=== PATIENT | female | born 1975 | race African-American/Black ===

== ENCOUNTER 2022-02-07 10:27 | Emergency (ER) | payer OTHER, SELFPAY ==
[2022-02-07 10:28] VITALS: BP 171/59; PULSE 80; RESP 16; TEMP 36.8; O2SAT 98; BMI 48.2
--- NOTE | 2022-02-07 11:07 | ED_ITS ---
HPI - Female Genitourinary General Chief complaint: Urogenital-Female Stated complaint: Vaginal pain Time Seen by Provider: 02/07/22 11:01 Source: patient Mode of arrival: ambulatory Limitations: no limitations History of Present Illness HPI Narrative: Patient comes to the emergency room complaining of vaginal pain. Patient states that approximately 3 days ago, she noticed that there is a small lump that is gradually becoming more irritated. Patient denies any vaginal bleeding, no vaginal discharge. Patient states that she has not had her menstrual period in over 2 months. Patient denies fever chills, no UTI symptoms Related Data Previous Rx's Medication Instructions Recorded miconazole nitrate 2 % vaginal 1 appful vaginal BEDTIME 7 days 02/07/22 cream #45 grams nitrofurantoin 100 mg PO Q12H 5 days #10 caps 02/07/22 monohydrate/macrocrystals 100 mg capsule (Macrobid) Allergies Allergy/AdvReac Type Severity Reaction Status Date / Time No Known Allergies Allergy Verified 02/07/22 11:23 Review of Systems Review of Systems: Constitutional : No Weight loss, No Fever, No Chills, No Night Sweats, No Fatigue, No Malaise ENT/Mouth : No Hearing loss, No Ear Pain, No Nasal Congestion, No Sinus Pain, No Hoarseness, No sore throat, No Rhinorrhea, No Swallowing Difficulty Eyes: No Eye Pain, No Swelling, No Redness, No Foreign Body, No Discharge, No Vision Changes Cardiovascular : No Chest Pain, No SOB, No Dyspnea on Exertion, No Orthopnea, No Edema, No Palpitations Respiratory : No Cough, No Sputum, No Wheezing, No Smoke Exposure, No Dyspnea Gastrointestinal : No Nausea, No Vomiting, No Diarrhea, No Constipation, No abdominal Pain, No Hematochezia, No Melena Genitourinary : Complaining of vaginal pain for 3 days, No Dysuria, No Urinary Frequency, No Hematuria, No Urinary Incontinence, No Urgency, No Flank Pain, No Urinary Flow Changes, No Hesitancy Musculoskeletal : No joint pain, No Myalgias, No Joint Swelling Skin : No Skin Lesions, No rash Neuro : No Weakness, No Numbness, No Paresthesias, No Loss of Consciousness, No Dizziness, No Headache Psych : No Anxiety/Panic, No Depression, No SI/HI/AH/VH, No Social Issues, Heme/Lymph: No Bruising, No Bleeding,No Lymphadenopathy Endocrine : No Polyuria, No Polydipsia, No Temperature Intolerance [facility] Past Medical History Medical History (Updated 02/07/22 @ 12:40 by Sunitha Larkin MD) Hypertension Social History Social History Advance Directives: No Advance Directives Information Provided: No Physical Exam Vital Signs: Vital Signs: Last Vital Signs Temp 98.2 F 02/07/22 10:28 Pulse 80 02/07/22 10:28 Resp 16 02/07/22 10:28 BP 171/59 H 02/07/22 10:28 Pulse Ox 98 02/07/22 10:28 O2 Del Method 02/07/22 10:28 BMI result Body Mass Index 48.2 Const: Other: Appearance: Alert. Oriented X3. No acute distress. Eyes: Pupils equal, round and reactive to light. ENT: Pharynx normal. Neck: Normal inspection. Neck supple. No lymph nodes noted. No crepitus CVS: Normal heart rate and rhythm. Pulses normal. Normal S1 and S2 Respiratory: No respiratory distress. Breath sounds normal. No Wheezing. No rales Abdomen: Soft and nontender. No rigidity. No distention. : Vulvar erythema, physiological discharge, no abscesses, no Bartholin's cyst Skin: Skin warm and dry. Normal skin color. Normal skin turgor. Extremities: No lower extremity edema. No Lacerations. No Rash Neuro: Oriented X 3. No motor deficit. No sensory deficit. Moving all e xtremities. No slurred speech. CN 2 through 12 grossly intact Psych: calm, cooperative, normal affect Course Course Course Narrative: I discussed the physical exam with the patient, no abnormal findings other than the vulvar erythema. Likely candidiasis. Patient states that this morning she also noticed that she had dysuria Patient's urinalysis has trace leukocyte esterase. Patient reports intermittent dysuria. Therefore, we will go ahead and treat. Patient's serology(chlamydia, gonorrhea, Trichomonas BV pending) MDM - Female Genitourinary Lab Data Labs: Lab Results 02/07/22 02/07/22 Range/Units 11:33 11:33 Urine Color Dark Yellow Urine Appearance Clear Urine pH 5.5 (5.0-9.0) Ur Specific [place] >= 1.030 H (1.005-1.025) Urine Protein 30 (1+) H (Neg-Trace) mg/dL Urine Glucose (UA) Negative (Negative) mg/dL Urine Ketones Trace (Negative) mg/dL Urine Blood Negative (Negative) Urine Nitrite Negative (Negative) Ur Leukocyte Esterase Trace H (Negative) Urine RBC 0-2 (0-2) /HPF Urine WBC 0-5 (0-5) /HPF Ur Squamous Epith Cells 3-5 (0-2) /HPF Urine Bacteria None Seen (None Seen) Hyaline Casts 0-2 (0-2) /LPF Urine Test NEGATIVE (NEGATIVE) Discharge Plan Discharge Clinical Impression: Urinary tract infection, Candidiasis, vulva Patient Disposition: Home, Self-Care Instructions: Urinary Tract Infection in Women (ED), Yeast Infection (ED) Additional Instructions: Please follow-up with your primary care physician tomorrow. If you have any worsening or new symptoms, please return to the emergency room or call 911 Prescriptions: New miconazole nitrate 2 % cream 1 appful vaginal BEDTIME 7 Days Qty: 45 0RF nitrofurantoin monohyd/m-cryst [Macrobid] 100 mg capsule 100 mg PO Q12H 5 Days Qty: 10 0RF Rx Instructions: must administer with a meal/food
[2022-02-07 11:39] LABS: Appearance Urine Clear; Color Urine Dark Yellow; Glucose Urine UA Negative (Negative); Leukocyte Esterase Urine Trace (Negative); Nitrite Urine Negative (Negative); PH 5.5 (5.0-9.0); Specific Gravity - Urine >= 1.030 (1.005-1.025); Urine Blood Negative (Negative); Urine Ketones Trace mg/dL (Negative); Urine Protein 30 (1+) mg/dL (Neg-Trace)
[2022-02-07 11:42] LABS: UPreg QC Valid YES; Urine Pregnancy NEGATIVE (NEGATIVE)
[2022-02-07 11:44] LABS: Bacteria Urine None Seen (None Seen); Hyaline Casts Urine 0-2 /LPF (0-2); RBC Urine 0-2 /HPF (0-2); WBC Urine 0-5 /HPF (0-5)
[2022-02-07 16:27] LABS: CT PCR NOT DETECTED (Not Detect.); NG PCR NOT DETECTED (Not Detect.)
[2022-02-08 11:02] LABS: BV Int Neg Control Negative (Negative); BV Int Pos Control Positive (Positive)
== END 2022-02-07 14:11 | disposition home or self-care (01) ==
PROVIDERS: Emergency Provider Emergency Medicine
DX: N39.0 Urinary tract infection, site not specified (principal); B37.3 Candidiasis of vulva and vagina
CPT/HCPCS: 81001; 81025; 87480; 87491; 87510; 87591; 87660; 99284

== ENCOUNTER 2022-05-13 16:29 | Emergency (ER) | payer OTHER, SELFPAY ==
--- NOTE | ~2022-05-13 | XR_ITS ---
EXAMINATION: XR CHEST CLINICAL INFORMATION: Cough. Dyspnea. COMPARISON: None TECHNIQUE: 2 views of the chest were obtained. FINDINGS: No significant abnormality is noted involving the heart, lungs, mediastinum, bony thorax or soft tissues. Surgical clips in the upper abdomen. XR/XR chest 2V IMPRESSION: Unremarkable examination.
[2022-05-13 17:23] VITALS: BP 184/68; PULSE 76; RESP 22; O2SAT 100; BMI 48.6
[2022-05-13 17:48] LABS: MANUAL DIFF FLAG NO
[2022-05-13 17:55] LABS: Basophils Percent Auto 0.3 % (0-2); Eosinophils Absolute Auto 0.1 X10*3/uL (0.0-0.4); Eosinophils Percent Auto 0.5 % (0-4); Hematocrit 38.6 % (37.0-47.0); Hemoglobin 12.3 g/dl (12.0-16.0); Imm Gran Abs Auto 0.05 X10*3/uL (0.00-0.03); Imm Gran Pct Auto 0.4 % (0.0-0.4); Lymphocytes Absolute Auto 1.8 X10*3/uL (1.2-4.9); Lymphocytes Percent Auto 15.2 % (20-40); Mean Corpuscular HGB Conc 31.9 g/dl (31.0-35.0); Mean Corpuscular Hemoglobin 28.3 pg (27.0-33.0); Mean Corpuscular Volume 88.9 fL (80.0-98.0); Mean Platelet Volume 11.1 fL (9.4-12.3); Monocytes Absolute Auto 1.3 X10*3/uL (0.1-1.2); Monocytes Percent Auto 11.3 % (2-11); Neutrophils Absolute Auto 8.4 x10*3/uL (2.0-8.3); Neutrophils Percent Auto 72.3 % (45-73); Platelet Count 314 X10*3/uL (160-400); Red Blood Count 4.34 X10*6/uL (4.20-5.50); Red Cell Distribution Width 14.2 % (11.0-16.0); White Blood Count 11.6 X10*3/uL (4.8-10.8)
[2022-05-13 18:13] LABS: Anion Gap 13 (12-20); Blood Urea Nitrogen 9 mg/dL (9-16); Calcium 9.1 mg/dL (8.4-10.2); Carbon Dioxide 28 mmol/L (22-29); Chloride 102 mmol/L (96-108); Creatinine Clr Calc Pharmacy 127.6; Estimated Glomerular Filt Rate > 60; Glucose Random 91 mg/dL (60-115); Potassium 4.6 mmol/L (3.3-5.1); Sodium 138 mmol/L (135-145)
[2022-05-13 18:30] LABS: Influenza A PCR NEGATIVE (Negative); Influenza B PCR NEGATIVE (Negative); Resp Syncy Virus RNA Qual PCR NEGATIVE (Negative); SARS COV2 PCR INHOUSE POSITIVE (Negative)
[2022-05-13 19:40] VITALS: BP 184/88; PULSE 88; RESP 20; TEMP 37; O2SAT 98
--- NOTE | 2022-05-13 19:40 | ED_ITS ---
HPI - URI/Sore Throat General Chief Complaint: Upper Respiratory Symptoms Stated Complaint: Asthma Time Seen by Provider: 05/13/22 19:38 Source: patient Mode of arrival: ambulatory Limitations: no limitations History of Present Illness HPI Narrative: 46-year-old female history of asthma presents with body aches and pain, fatigue, malaise, shortness of breath x2 days worsening. Patient tells me this feels like her typical asthma attack. Her asthma is well controlled has never required intubations. She takes her inhaler as necessary. Patient reports subjective fevers and chills. No one around her sick. Denies chest pain, nausea, vomiting, abdominal pain, headache, vision changes, dizziness, weakness. Vaccinated against COVID and flu. Not a smoker. No history of DVT or PE. Related Data Previous Rx's Medication Instructions Recorded miconazole nitrate 2 % vaginal 1 appful vaginal BEDTIME 7 days 02/07/22 cream #45 grams nitrofurantoin 100 mg PO Q12H 5 days #10 caps 02/07/22 monohydrate/macrocrystals 100 mg capsule (Macrobid) albuterol sulfate 90 mcg/actuation 2 inh inhalation Q4-6H PRN 05/13/22 breath activated powder inhaler shortness of breath or wheezing #1 ea prednisone 20 mg tablet 40 mg PO DAILY 5 days #10 tabs 05/13/22 Allergies Allergy/AdvReac Type Severity Reaction Status Date / Time No Known Allergies Allergy Verified 02/07/22 11:23 Review of Systems Review of Systems: Constitutional : No Weight loss, + Fever, + Chills, + Fatigue, + Malaise ENT/Mouth : No sore throat, No Rhinorrhea Eyes: No Eye Pain, No Swelling, No Redness Cardiovascular : No Chest Pain, + SOB, No Dyspnea on Exertion, No Orthopnea, No Edema, No Palpitations Respiratory : No Cough, No Sputum, No Wheezing Gastrointestinal : No Nausea, No Vomiting, No Diarrhea, No Constipation, No abdominal Pain, No Hematochezia, No Melena Genitourinary : No Dysuria, No Urinary Frequency, No Hematuria, Musculoskeletal : No joint pain, + Myalgias, No Joint Swelling Skin : No Skin Lesions, No rash Neuro : No Weakness, No Numbness, No Dizziness, No Headache Psych : No Anxiety/Panic, No Depression All other systems reviewed and are negative Yes all other systems are reviewed and are negative [facility] Past Medical History Attestation statement: The following information was validated with the patient. Source: old records reviewed and nursing notes reviewed Medical History Hypertension Social History Social History Patient Tobacco Use Status: Never used Tobacco Physical Exam Vital Signs: Vital Signs: Last Vital Signs Pulse 76 05/13/22 17:23 Resp 22 H 05/13/22 17:23 BP 184/68 H 05/13/22 17:23 Pulse Ox 100 05/13/22 17:23 O2 Del Method 05/13/22 17:23 BMI result Body Mass Index 48.6 Vital signs stable. Ambulatory O2 98% on room air. Patient appears comfortable no acute distress. Appearance: Alert.? Oriented X3.? No acute distress.? Head: Normocephalic, atraumatic, no step-offs or deformities Eyes: Pupils equal, round and reactive to light.? CVS: Normal heart rate and rhythm.? Pulses normal.? Respiratory: No respiratory distress.? Breath sounds normal.? Abdomen: Soft and nontender.? Skin: Skin warm and dry.? Normal skin color.? Normal skin turgor.? Extremities: No lower extremity edema.? No calf ttp negative Ranjana bilaterally. 5/5 strength to bilateral upper and lower extremities Back: No midline tenderness, no C-spine tenderness, full range of motion, no CV A tenderness bilaterally Neuro: Oriented X 3.? No motor deficit.? No sensory deficit. CN 2-12 intact Course Reevaluation(s) Reevaluation #1: CBC with slight leukocytosis likely secondary to viral infection. Chemistry with no acute findings. Chest x-ray unremarkable. Patient noted to be COVID po sitive. Likely why patient is experiencing the symptoms. Hemodynamically stable saturating well on room air. Will discharge her home on prednisone, albuterol. Advised to return with new or worsening symptoms. Went over CDC guidelines with her. Answered all questions. Verbalizes understanding. At this time patient will be discharged home. Time: 19:43 Reevaluation #2: I did speak to patient about initiation of paxlovid, she will follow-up with her PCP if she wants it, however will not send at this time. Time: 19:46 Medical Decision Making Medical Decision Making [facility] Narrative: 1942 46-year-old female presents with COVID like symptoms x2 days. Denies sick contacts. Currently vaccinated. Physical examination benign Likely viral in origin. I do not suspect PE or DVT. Patient PERC negative. No signs of pneumonia. Laboratory studies and imaging as well as COVID test ordered from triage. Critical Care Time Critical Care Time Critical Care Time: No Discharge Plan Discharge Clinical Impression: COVID-19 Patient Disposition: Home, Self-Care Instructions: COVID-19 (Coronavirus Disease 2019) (ED) Additional Instructions: Take your medications as prescribed. If you were prescribed antibiotics today, it is important that you take your medication to their entirety, do not skip any doses, do not finish them early. Today you tested positive for COVID-19. Take Ibuprofen or Tylenol as needed for fevers or body aches. Quarantine for 5 days and ensure you wear a mask. After 5 days you should wear a mask for 5 days after that. Practice social distancing and good hand hygiene. Drink plenty of fluids. Follow-up with your primary care provider this week. Return to the emergency department with new or worsening symptoms. In case of emergency call 911 You can purchase a pulse oximeter from your local pharmacy or grocery store, and monitor your oxygen saturation if it goes below 94% you should return to the emergency department for further evaluation. Prescriptions: New albuterol sulfate 90 mcg/actuation aerosol powdr breath activated 2 inh inhalation Q4-6H PRN (Reason: shortness of breath or wheezing) Qty: 1 0RF prednisone 20 mg tablet 40 mg PO DAILY 5 Days Qty: 10 0RF No Action miconazole nitrate 2 % cream 1 appful vaginal BEDTIME 7 Days Qty: 45 0RF nitrofurantoin monohyd/m-cryst [Macrobid] 100 mg capsule 100 mg PO Q12H 5 Days Qty: 10 0RF Rx Instructions: must administer with a meal/food Referrals: Physician,Unknown J [Primary Care Provider] - 2 days Stand Alone Forms: Work/School Release
== END 2022-05-13 19:48 | disposition home or self-care (01) ==
LOC: HO.ED 19:47
PROVIDERS: Emergency Provider Emergency Medicine
DX: U07.1 COVID-19 (principal); J45.909 Unspecified asthma, uncomplicated; Z79.899 Other long term (current) drug therapy
CPT/HCPCS: 0241U; 36415; 71046; 80048; 85025; 99282; 99283

== ENCOUNTER 2022-06-03 12:19 | Emergency (ER) | payer OTHER, SELFPAY ==
[2022-06-03 12:24] VITALS: BP 174/78; PULSE 72; RESP 16; O2SAT 99; BMI 49.9
--- NOTE | 2022-06-03 12:28 | ED.BACK ---
HPI - Back Pain/Injury General Chief Complaint: Back Pain/Injury Stated Complaint: R Side Pain Related Data Previous Rx's Medication Instructions Recorded miconazole nitrate 2 % vaginal 1 appful vaginal BEDTIME 7 days 02/07/22 cream #45 grams nitrofurantoin 100 mg PO Q12H 5 days #10 caps 02/07/22 monohydrate/macrocrystals 100 mg capsule (Macrobid) albuterol sulfate 90 mcg/actuation 2 inh inhalation Q4-6H PRN 05/13/22 breath activated powder inhaler shortness of breath or wheezing #1 ea prednisone 20 mg tablet 40 mg PO DAILY 5 days #10 tabs 05/13/22 Allergies Allergy/AdvReac Type Severity Reaction Status Date / Time No Known Allergies Allergy Verified 02/07/22 11:23 PMFSH Past Medical History Medical History Hypertension Social History Social History Patient Tobacco Use Status: Never used Tobacco Advance Directives: No Advance Directives Information Provided: Yes Physical Exam Vital Signs: Vital Signs: Last Vital Signs Pulse 72 06/03/22 12:24 Resp 16 06/03/22 12:24 BP 174/78 H 06/03/22 12:24 Pulse Ox 99 06/03/22 12:24 O2 Del Method 06/03/22 12:24 BMI result Body Mass Index 49.9 Course Course Course Narrative: This is an RME: Additional HPI, ROS, PE not included below will be deferred to primary provider. Patient is a 46-year-old female who presents to the emergency department with reports of right-sided back pain between ribs and lumbar region x 5 days. Increasingly worse over the past 2 days however, unrelieved by Meloxicam. She reports a history of vertebral arthritis. Pain is similar to arthritis pain, but worse than usual. Denies upper respiratory symptoms, cough, shortness of breath, genitourinary symptoms or abdominal pain. Discharge Plan Discharge Clinical Impression: Back pain Patient Disposition: Elopement Prescriptions: No Action albuterol sulfate 90 mcg/actuation aerosol powdr breath activated 2 inh inhalation Q4-6H PRN (Reason: shortness of breath or wheezing) Qty: 1 0RF prednisone 20 mg tablet 40 mg PO DAILY 5 Days Qty: 10 0RF miconazole nitrate 2 % cream 1 appful vaginal BEDTIME 7 Days Qty: 45 0RF nitrofurantoin monohyd/m-cryst [Macrobid] 100 mg capsule 100 mg PO Q12H 5 Days Qty: 10 0RF Rx Instructions: must administer with a meal/food Interventions: LWBS Worksheet Last Done: 06/03/22 15:56 Discharge Date/Time: 06/03/22 15:57
== END 2022-06-03 15:57 | disposition left against medical advice (07) ==
PROVIDERS: Emergency Provider Emergency Medicine
DX: M54.50 Low back pain, unspecified (principal)
CPT/HCPCS: 99282; 99283

== ENCOUNTER 2022-09-07 12:14 | Emergency (ER) | payer MEDICAID, SELFPAY ==
[2022-09-07 12:52] LABS: MANUAL DIFF FLAG NO
[2022-09-07 12:54] VITALS: BP 216/112; PULSE 63; RESP 18; TEMP 36.6; O2SAT 100; BMI 54.8
[2022-09-07 12:55] LABS: Basophils Percent Auto 0.3 % (0-2); Eosinophils Absolute Auto 0.1 X10*3/uL (0.0-0.4); Eosinophils Percent Auto 1.4 % (0-4); Hematocrit 37.2 % (37.0-47.0); Hemoglobin 11.9 g/dl (12.0-16.0); Imm Gran Abs Auto 0.04 X10*3/uL (0.00-0.03); Imm Gran Pct Auto 0.4 % (0.0-0.4); Lymphocytes Absolute Auto 2.7 X10*3/uL (1.2-4.9); Lymphocytes Percent Auto 27.3 % (20-40); Mean Corpuscular Volume 90.5 fL (80.0-98.0); Mean Platelet Volume 11.7 fL (9.4-12.3); Monocytes Absolute Auto 1.1 X10*3/uL (0.1-1.2); Monocytes Percent Auto 11.1 % (2-11); Neutrophils Absolute Auto 5.8 x10*3/uL (2.0-8.3); Neutrophils Percent Auto 59.5 % (45-73); Platelet Count 275 X10*3/uL (160-400); Red Blood Count 4.11 X10*6/uL (4.20-5.50); White Blood Count 9.8 X10*3/uL (4.8-10.8)
--- NOTE | 2022-09-07 12:59 | ED_ITS ---
HPI - Abdominal Pain General Stated Complaint: abd pain x3 days Related Data Previous Rx's Medication Instructions Recorded miconazole nitrate 2 % vaginal 1 appful vaginal BEDTIME 7 days 02/07/22 cream #45 grams nitrofurantoin 100 mg PO Q12H 5 days #10 caps 02/07/22 monohydrate/macrocrystals 100 mg capsule (Macrobid) albuterol sulfate 90 mcg/actuation 2 inh inhalation Q4-6H PRN 05/13/22 breath activated powder inhaler shortness of breath or wheezing #1 ea prednisone 20 mg tablet 40 mg PO DAILY 5 days #10 tabs 05/13/22 Allergies Allergy/AdvReac Type Severity Reaction Status Date / Time No Known Allergies Allergy Verified 02/07/22 11:23 [facility] Past Medical History Medical History Hypertension Social History Social History Patient Tobacco Use Status: Never used Tobacco Course Course Course Narrative: RME - 46 y/o Prydeinig speaking female presents to the ER for evaluation of 3 days of lower abdominal pain. She reports the pain is located right below her belly button. Was lightheaded and nauseated yesterday. No vomiting or diarrhea. Has s ensation of incomplete bladder emptying and increased frequency. No dysuria Plan: basic labs and UA Medical Decision Making Lab Data 09/07/22 12:37 09/07/22 12:37 Labs: Lab Results 09/07/22 Range/Units 12:37 WBC 9.8 (4.8-10.8) X10*3/uL RBC 4.11 L (4.20-5.50) X10*6/uL Hgb 11.9 L (12.0-16.0) g/dl Hct 37.2 (37.0-47.0) % MCV 90.5 (80.0-98.0) fL MCH 29.0 (27.0-33.0) pg MCHC 32.0 (31.0-35.0) g/dl RDW 14.0 (11.0-16.0) % Plt Count 275 (160-400) X10*3/uL MPV 11.7 (9.4-12.3) fL Immature Gran % (Auto) 0.4 (0.0-0.4) % Neut % (Auto) 59.5 (45-73) % Lymph % (Auto) 27.3 (20-40) % Grundy % (Auto) 11.1 H (2-11) % Eos % (Auto) 1.4 (0-4) % Baso % (Auto) 0.3 (0-2) % Lymph # (Auto) 2.7 (1.2-4.9) X10*3/uL Grundy # (Auto) 1.1 (0.1-1.2) X10*3/uL Eos # (Auto) 0.1 (0.0-0.4) X10*3/uL Baso # (Auto) 0.0 (0.0-0.2) X10*3/uL Abs Immat Gran (auto) 0.04 H (0.00-0.03) X10*3/uL Absolute Neuts (auto) 5.8 (2.0-8.3) x10*3/uL Absolute Nucleated RBC 0.000 (0.0-0.012) X10*3/uL Nucleated RBC % (auto) 0.0 (0.0-0.2) /100WBC Discharge Plan Discharge Prescriptions: No Action albuterol sulfate 90 mcg/actuation aerosol powdr breath activated 2 inh inhalation Q4-6H PRN (Reason: shortness of breath or wheezing) Qty: 1 0RF prednisone 20 mg tablet 40 mg PO DAILY 5 Days Qty: 10 0RF miconazole nitrate 2 % cream 1 appful vaginal BEDTIME 7 Days Qty: 45 0RF nitrofurantoin monohyd/m-cryst [Macrobid] 100 mg capsule 100 mg PO Q12H 5 Days Qty: 10 0RF Rx Instructions: must administer with a meal/food
[2022-09-07 13:14] LABS: Alanine Aminotransferase 26 U/L (0-31); Albumin Level 3.6 g/dL (3.5-5.0); Alkaline Phosphatase 86 U/L (39-117); Anion Gap 8 (12-20); Aspartate Amino Transferase 17 U/L (5-31); Bilirubin Direct 0.2 mg/dL (0.0-0.5); Bilirubin Total 0.5 mg/dL (0.0-1.0); Blood Urea Nitrogen 9 mg/dL (9-16); Calcium 8.6 mg/dL (8.4-10.2); Carbon Dioxide 28 mmol/L (22-29); Chloride 107 mmol/L (96-108); Creatinine Clr Calc Pharmacy 123.6; Estimated Glomerular Filt Rate > 60; Glucose Random 100 mg/dL (60-115); Lipase 23 U/L (8-78); Sodium 139 mmol/L (135-145); Total Protein 6.6 g/dL (6.5-8.0)
[2022-09-07 13:20] LABS: COVID-19 Test Negative (Negative); IDNOW Serial# 08D9AD1C
[2022-09-07 13:25] LABS: Appearance Urine Clear; Color Urine Yellow; Glucose Urine UA Negative (Negative); Leukocyte Esterase Urine Moderate (2+) (Negative); Nitrite Urine Negative (Negative); PH 5.5 (5.0-9.0); UMIC TRIGGER UACC YES; UPreg QC Valid YES; Urine Blood Negative (Negative); Urine Ketones Negative (Negative); Urine Pregnancy NEGATIVE (NEGATIVE); Urine Protein Trace mg/dL (Neg-Trace)
[2022-09-07 13:30] LABS: Bacteria Urine 1+ (None Seen); Hyaline Casts Urine 0-2 /LPF (0-2); RBC Urine 0-2 /HPF (0-2); UACC Culture Trigger YES
--- NOTE | 2022-09-07 13:55 | ED_ITS ---
HPI - Abdominal Pain General Chief Complaint: Abdominal Pain Stated Complaint: abd pain x3 days Time Seen by Provider: 09/07/22 13:40 Source: patient, family and old records reviewed Limitations: no limitations History of Present Illness HPI narrative: Patient presents complaining of lower abdominal pain for the past 3 days. Positive dysuria, hesitancy, frequency. No prior history of urinary tract infections. No vaginal discharge or bleeding new or constipation No flank pain No fevers or chills She has a history of fibroids at of caused menorrhagia in the past. No recent symptoms She has supervisor anodizing follow-up for this Related Data Previous Rx's Medication Instructions Recorded miconazole nitrate 2 % vaginal 1 appful vaginal BEDTIME 7 days 02/07/22 cream #45 grams nitrofurantoin 100 mg PO Q12H 5 days #10 caps 02/07/22 monohydrate/macrocrystals 100 mg capsule (Macrobid) albuterol sulfate 90 mcg/actuation 2 inh inhalation Q4-6H PRN 05/13/22 breath activated powder inhaler shortness of breath or wheezing #1 ea prednisone 20 mg tablet 40 mg PO DAILY 5 days #10 tabs 05/13/22 phenazopyridine 200 mg tablet 200 mg PO TID PRN pain 6 doses #6 09/07/22 (Pyridium) tabs sulfamethoxazole 800 1 tab PO BID #10 tabs 09/07/22 mg-trimethoprim 160 mg tablet (Bactrim DS) Allergies Allergy/AdvReac Type Severity Reaction Status Date / Time No Known Allergies Allergy Verified 02/07/22 11:23 Review of Systems Comments: No fevers or chills Comments: No chest pain Comments: No cough or dyspnea Gastrointestinal: Reports as per HPI Genitourinary: Reports as per HPI Comments: No rash PMFSH Past Medical History Medical History Hypertension Social History Social History Patient Tobacco Use Status: Never used Tobacco Advance Directives: No Physical Exam ED Vital Signs: Vital Signs - 24 hr 09/07/22 12:54 Temperature 98 F Pulse Rate 63 Respiratory Rate 18 Blood Pressure 216/112 H Pulse Oximetry 100 Oxygen Delivery Method Room Air BMI result Body Mass Index 54.8 Const Other: Awake alert, no acute distress Resp Other: Respiratory distress GI Other: Soft. Tenderness suprapubically without guarding or rebound. No other abdominal tenderness. No referred tenderness. No flank tenderness to palpation or percussion. Skin Other: Warm and dry Medical Decision Making Medical Decision Making [facility] Narrative: Abdominal pain with multiple potential etiologies. Is likely. Fibroid pain Diverticulitis possible but less likely Workup in emergency department shows normal CBC, normal chemistries including creatinine. Urinalysis consistent with urinary tract infection. Will treat with Bactrim and Pyridium. Follow-up with PCP Lab Data 09/07/22 12:37 09/07/22 12:37 Labs: Lab Results 09/07/22 09/07/22 09/07/22 Range/Units 12:37 12:37 12:37 WBC 9.8 (4.8-10.8) X10*3/uL RBC 4.11 L (4.20-5.50) X10*6/uL Hgb 11.9 L (12.0-16.0) g/dl Hct 37.2 (37.0-47.0) % MCV 90.5 (80.0-98.0) fL MCH 29.0 (27.0-33.0) pg MCHC 32.0 (31.0-35.0) g/dl RDW 14.0 (11.0-16.0) % Plt Count 275 (160-400) X10*3/uL MPV 11.7 (9.4-12.3) fL Immature Gran % (Auto) 0.4 (0.0-0.4) % Neut % (Auto) 59.5 (45-73) % Lymph % (Auto) 27.3 (20-40) % [place] % (Auto) 11.1 H (2-11) % Eos % (Auto) 1.4 (0-4) % Baso % (Auto) 0.3 (0-2) % Lymph # (Auto) 2.7 (1.2-4.9) X10*3/uL [place] # (Auto) 1.1 (0.1-1.2) X10*3/uL Eos # (Auto) 0.1 (0.0-0.4) X10*3/uL Baso # (Auto) 0.0 (0.0-0.2) X10*3/uL Abs Immat Gran (auto) 0.04 H (0.00-0.03) X10*3/uL Absolute Neuts (auto) 5.8 (2.0-8.3) x10*3/uL Absolute Nucleated RBC 0.000 (0.0-0.012) X10*3/uL Nucleated RBC % (auto) 0.0 (0.0-0.2) /100WBC Sodium 139 (135-145) mmol/L Potassium 4.0 (3.3-5.1) mmol/L Chloride 107 (96-108) mmol/L Carbon Dioxide 28 (22-29) mmol/L Anion Gap 8 L (12-20) BUN 9 (9-16) mg/dL Creatinine 0.76 (0.5-1.4) mg/dL Estim Creat Clear Calc 123.6 Estimated GFR > 60 Random Glucose 100 (60-115) mg/dL Calcium 8.6 (8.4-10.2) mg/dL Magnesium 2.0 (1.6-2.6) mg/dL Total Bilirubin 0.5 (0.0-1.0) mg/dL Direct Bilirubin 0.2 (0.0-0.5) mg/dL AST 17 (5-31) U/L ALT 26 (0-31) U/L Alkaline Phosphatase 86 (39-117) U/L Total Protein 6.6 (6.5-8.0) g/dL Albumin 3.6 (3.5-5.0) g/dL Lipase 23 (8-78) U/L Urine Color Urine Appearance Urine pH (5.0-9.0) Ur Specific [place] (1.005-1.025) Urine Protein (Neg-Trace) mg/dL Urine Glucose (UA) (Negative) mg/dL Urine Ketones (Negative) mg/dL Urine Blood (Negative) Urine Nitrite (Negative) Ur Leukocyte Esterase (Negative) Urine RBC (0-2) /HPF Urine WBC (0-5) /HPF Ur Squamous Epith Cells (0-2) /HPF Urine Bacteria (None Seen) Hyaline Casts (0-2) /LPF Urine Test (NEGATIVE) COVID-19 ([facility]) Negative (Negative) COVID-19 Clin Com See Note 09/07/22 09/07/22 Range/Units 13:15 13:15 WBC (4.8-10.8) X10*3/uL RBC (4.20-5.50) X10*6/uL Hgb (12.0-16.0) g/dl Hct (37.0-47.0) % MCV (80.0-98.0) fL MCH (27.0-33.0) pg MCHC (31.0-35.0) g/dl RDW (11.0-16.0) % Plt Count (160-400) X10*3/uL MPV (9.4-12.3) fL Immature Gran % (Auto) (0.0-0.4) % Neut % (Auto) (45-73) % Lymph % (Auto) (20-40) % [place] % (Auto) (2-11) % Eos % (Auto) (0-4) % Baso % (Auto) (0-2) % Lymph # (Auto) (1.2-4.9) X10*3/uL [place] # (Auto) (0.1-1.2) X10*3/uL Eos # (Auto) (0.0-0.4) X10*3/uL Baso # (Auto) (0.0-0.2) X10*3/uL Abs Immat Gran (auto) (0.00-0.03) X10*3/uL Absolute Neuts (auto) (2.0-8.3) x10*3/uL Absolute Nucleated RBC (0.0-0.012) X10*3/uL Nucleated RBC % (auto) (0.0-0.2) /100WBC Sodium (135-145) mmol/L Potassium (3.3-5.1) mmol/L Chloride (96-108) mmol/L Carbon Dioxide (22-29) mmol/L Anion Gap (12-20) BUN (9-16) mg/dL Creatinine (0.5-1.4) mg/dL Estim Creat Clear Calc Estimated GFR Random Glucose (60-115) mg/dL Calcium (8.4-10.2) mg/dL Magnesium (1.6-2.6) mg/dL Total Bilirubin (0.0-1.0) mg/dL Direct Bilirubin (0.0-0.5) mg/dL AST (5-31) U/L ALT (0-31) U/L Alkaline Phosphatase (39-117) U/L Total Protein (6.5-8.0) g/dL Albumin (3.5-5.0) g/dL Lipase (8-78) U/L Urine Color Yellow Urine Appearance Clear Urine pH 5.5 (5.0-9.0) Ur Specific [place] 1.020 (1.005-1.025) Urine Protein Trace (Neg-Trace) mg/dL Urine Glucose (UA) Negative (Negative) mg/dL Urine Ketones Negative (Negative) mg/dL Urine Blood Negative (Negative) Urine Nitrite Negative (Negative) Ur Leukocyte Esterase Moderate (2+) H (Negative) Urine RBC 0-2 (0-2) /HPF Urine WBC 6-10 H (0-5) /HPF Ur Squamous Epith Cells 6-10 (0-2) /HPF Urine Bacteria 1+ (None Seen) Hyaline Casts 0-2 (0-2) /LPF Urine Test NEGATIVE (NEGATIVE) COVID-19 ([facility]) (Negative) COVID-19 Clin Com Discharge Plan Discharge Clinical Impression: Urinary tract infection Patient Disposition: Home, Self-Care Instructions: Urinary Tract Infection in Women (ED) Prescriptions: New sulfamethoxazole-trimethoprim [Bactrim DS] 800-160 mg tablet 1 tab PO BID Qty: 10 0RF phenazopyridine [Pyridium] 200 mg tablet 200 mg PO TID PRN (Reason: pain) Qty: 6 0RF No Action albuterol sulfate 90 mcg/actuation aerosol powdr breath activated 2 inh inhalation Q4-6H PRN (Reason: shortness of breath or wheezing) Qty: 1 0RF prednisone 20 mg tablet 40 mg PO DAILY 5 Days Qty: 10 0RF miconazole nitrate 2 % cream 1 appful vaginal BEDTIME 7 Days Qty: 45 0RF nitrofurantoin monohyd/m-cryst [Macrobid] 100 mg capsule 100 mg PO Q12H 5 Days Qty: 10 0RF Rx Instructions: must administer with a meal/food
[2022-09-07] MEDS: Sulfamethox/Trimeth 800/160 TABLET 1 TAB PO (14:06)
[2022-09-07] MEDS: Phenazopyridine HCL 200 MG TABLET PO (14:06)
== END 2022-09-07 14:10 | disposition home or self-care (01) ==
PROVIDERS: Physician Assistant; Emergency Provider Emergency Medicine
DX: N39.0 Urinary tract infection, site not specified (principal); Z20.822 Contact with and (suspected) exposure to COVID-19; I10 Essential (primary) hypertension; Z79.899 Other long term (current) drug therapy
CPT/HCPCS: 80048; 80076; 81001; 81025; 83690; 83735; 85025; 87086; 87635; 99283

== ENCOUNTER 2023-08-27 08:53 | Emergency (ER) | payer OTHER, MEDICAID, SELFPAY ==
[2023-08-27 09:05] VITALS: BP 175/77; PULSE 71; RESP 19; TEMP 36.6; O2SAT 98; BMI 48.8
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
[2023-08-27 10:14] VITALS: BP 169/84; PULSE 61; RESP 16; TEMP 36.1; O2SAT 98
== END 2023-08-27 10:14 | disposition home or self-care (01) ==
PROVIDERS: Emergency Provider Emergency Medicine; PCP Nurse Practitioner
DX: S39.012A Strain of muscle, fascia and tendon of lower back, initial encounter (principal); S16.1XXA Strain of muscle, fascia and tendon at neck level, initial encounter; I10 Essential (primary) hypertension; V43.62XA Car passenger injured in collision with other type car in traffic accident, initial encounter; Y93.9 Activity, unspecified; Y92.410 Unspecified street and highway as the place of occurrence of the external cause; Y99.9 Unspecified external cause status
CPT/HCPCS: 99283; 99284

== ENCOUNTER 2023-09-21 20:36 | Emergency (ER) | payer MEDICAID, SELFPAY ==
--- NOTE | ~2023-09-21 | CT_ITS ---
EXAMINATION: CT head/brain wo IV con CLINICAL INFORMATION: Reason for Exam HTN COMPARISON: None available TECHNIQUE: Contiguous axial imaging was performed from the skull base to vertex without intravenous contrast. Sagittal and coronal reformatted images were obtained. This CT examination was performed using dose optimization techniques as appropriate, variously including the following: * Automated exposure control * Adjustment of mA and/or kV according to patient size (this includes techniques or standardized protocols for targeted exams where dose is matched to indication/reason for exam; i.e. extremities or head) Use of iterative reconstruction technique DLP: 724 mGy-cm FINDINGS: There is no evidence of acute intracranial hemorrhage. No mass-effect or ventricular shift is noted. No acute, territorial loss of treadwell-white differentiation. The ventricles and sulci are appropriate in size and configuration for the patient's stated age. Periventricular and subcortical white matter hypodensity is nonspecific but likely represents chronic microvascular ischemic change. Intracranial atherosclerotic calcification is noted. No depressed calvarial fracture. Right greater left maxillary sinus mucus retention cyst/polyps. The mastoid air cells are clear. CT/CT head/brain wo IV con IMPRESSION: No acute intracranial hemorrhage, mass effect, or midline shift.
[2023-09-21 20:44] VITALS: BP 224/97; PULSE 68; RESP 16; TEMP 36.1; O2SAT 98; BMI 54.0
--- NOTE | 2023-09-21 20:45 | ECG_ITS ---
Test Reason : HTN Blood Pressure : / mmHG Vent. Rate : 064 BPM Atrial Rate : 064 BPM P-R Int : 146 ms QRS Dur : 082 ms QT Int : 452 ms P-R-T Axes : -02 -30 -03 degrees QTc Int : 466 ms Normal sinus rhythm Left axis deviation Moderate voltage criteria for LVH, may be normal variant ( R in aVL , Bomoseen product ) Abnormal ECG No previous ECGs available Referred By: Laverne Alvarado Electronically Signed By:ANNA MARTINEZ
--- NOTE | 2023-09-21 20:48 | ED_ITS ---
HPI - General Adult General Chief complaint: Neuro Symptoms/Deficit Stated complaint: HBP Time Seen by Provider: 09/21/23 21:01 Source: patient Mode of arrival: ambulatory Limitations: no limitations History of Present Illness HPI narrative: Patient comes to the emergency room complaining of a headache And high blood pressure. 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 Patient states that she has been coughing more than usual and has been triggering her asthma. Patient states that she bought [id number] guaifenesin. Then when she got home, patient started having headache. Patient states that she does have history of hypertension, patient takes at home 100 mg of losartan, 10 mg of hydralazine b.i.d., amlodipine 10 mg, hydrochlorothiazide 25 mg, metoprolol Succinate 25 mg. patient states that she is compliant with her medications. Patient states that all day today she has been having a headache. Denies chest pain or shortness of breath. In triage, patient's initial blood pressure was 238/104 Related Data Previous Rx's ?Medication ?Instructions ?Recorded miconazole nitrate 2 % vaginal 1 appful vaginal BEDTIME 7 days 02/07/22 cream #45 grams nitrofurantoin 100 mg PO Q12H 5 days #10 caps 02/07/22 monohydrate/macrocrystals 100 mg capsule (Macrobid) albuterol sulfate 90 mcg/actuation 2 inh inhalation Q4-6H PRN 05/13/22 breath activated powder inhaler shortness of breath or wheezing #1 ea prednisone 20 mg tablet 40 mg (2 x 20 mg) PO DAILY 5 days 05/13/22 #10 tabs phenazopyridine 200 mg tablet 200 mg PO TID PRN pain 6 doses #6 09/07/22 (Pyridium) tabs sulfamethoxazole 800 1 tab PO BID #10 tabs 09/07/22 mg-trimethoprim 160 mg tablet (Bactrim DS) acetaminophen 500 mg tablet 1,000 mg (2 x 500 mg) PO QID PRN 08/27/23 pain #30 tabs cyclobenzaprine 5 mg tablet 5 mg PO TID PRN muscle spasm #14 08/27/23 tabs ibuprofen 600 mg tablet 600 mg PO Q6H PRN pain #20 tabs 08/27/23 Allergies Allergy/AdvReac Type Severity Reaction Status Date / Time No Known Allergies Allergy Verified 09/21/23 20:53 Review of Systems 2 Review of Systems: Constitutional : No Weight loss, No Fever, No Chills, No Night Sweats, No Fatigue, No Malaise ENT/Mouth : No Hearing loss, No Ear Pain, No Nasal Congestion, No Sinus Pain, No Hoarseness, No sore throat, No Rhinorrhea, No Swallowing Difficulty Eyes: No Eye Pain, No Swelling, No Redness, No Foreign Body, No Discharge, No Vision Changes Cardiovascular : No Chest Pain, No SOB, No Dyspnea on Exertion, No Orthopnea, No Edema, No Palpitations, complaining of high blood pressure above 200 Respiratory : complaining of cough, worsening asthma exacerbation over the last few days Gastrointestinal : No Nausea, No Vomiting, No Diarrhea, No Constipation, No abdominal Pain, No Hematochezia, No Melena Genitourinary : no irregular bleeding, No Dysuria, No Urinary Frequency, No Hematuria, No Urinary Incontinence, No Urgency, No Flank Pain, No Urinary Flow Changes, No Hesitancy Musculoskeletal : No joint pain, No Myalgias, No Joint Swelling Skin : No Skin Lesions, No rash Neuro : No Weakness, No Numbness, No Paresthesias, No Loss of Consciousness, No Dizziness, complaining of a headacheHeadache Psych : No Anxiety/Panic, No Depression, No SI/HI/AH/VH, No Social Issues, Heme/Lymph: No Bruising, No Bleeding,No Lymphadenopathy Endocrine : No Polyuria, No Polydipsia, No Temperature Intolerance PMFSH Past Medical History Medical History Hypertension Social History Social History Patient Tobacco Use Status: Never used Tobacco Advance Directives: No Advance Directives Information Provided: No Patient : No Physical Exam ED Vital Signs: Vital Signs - 24 hr 09/21/23 20:44 09/21/23 21:06 09/21/23 21:16 Temperature 97 F Pulse Rate 68 67 74 Respiratory Rate 16 12 Blood Pressure 224/97 H 205/99 H 205/99 H Pulse Oximetry 98 98 Oxygen Delivery Method Room Air Room Air 09/21/23 21:59 Temperature 97.0 F Pulse Rate 63 Respiratory Rate 20 Blood Pressure 170/65 H Pulse Oximetry 93 Oxygen Delivery Method Room Air BMI result Body Mass Index 54.0 Const Other: Appearance: Alert. Oriented X3. No acute distress. Eyes: Pupils equal, round and reactive to light. ENT: Pharynx normal. Neck: Normal inspection. Neck supple. No lymph nodes noted. No crepitus CVS: Normal heart rate and rhythm. Pulses normal. Normal S1 and S2 Respiratory: No respiratory distress. Breath sounds normal. No Wheezing. No rales Abdomen: Soft and nontender. No rigidity. No distention. Skin: Skin warm and dry. Normal skin color. Normal skin turgor. Extremities: No lower extremity edema. No Lacerations. No Rash Neuro: Oriented X 3. No motor deficit. No sensory deficit. Moving all extremities. No slurred speech. CN 2 through 12 grossly intact Psych: anxious, cooperative Course Course Course Narrative: This is an RME: Additional HPI, ROS, PE not included below will be deferred to primary provider. 47 year old female hx of htn, hld, obesity presents w/ high blood pressure at home (238/104) , headache ( diffuse w/ blurred vision) for the past day. LKWT this AM when she woke. On 4 BP meds not improving. NIHSS- 0 Pressure 224/97 241/126 HR 68 Patient well appearing Medications Administered Discontinued Medications Generic Name Dose Route Start Last Admin Trade Name Dutchq PRN Reason Stop Dose Admin Labetalol HCl 10 mg 09/21/23 21:10 09/21/23 21:16 Labetalol Hcl 100 Mg/20 Ml Vial IVPUSH 09/21/23 21:11 10 mg ONCE ONE Administration Lorazepam 2 mg 09/21/23 21:10 09/21/23 21:16 Lorazepam 1 Mg Tablet PO 09/21/23 21:11 2 mg ONCE ONE Administration Medical Decision Making Medical Decision Making MDM Narrative: - patient aware she will be going for head CT of the head. Patient states that she tends to become extremely anxious, patient was given 2 mg of Ativan prior to going to CT scan. - patient's initial blood pressure 238/104, recheck blood pressure 205/99. Patient was giving IV labetalol 10 mg. - My interpretation of EKG, normal sinus rhythm, heart rate 64, no ST segment depression or elevation, no T-wave inversion, QTC 466 - my interpretation of CT scan, no intracranial Hemorrhage - blood pressure improved to 170 systolic. Patient no longer having headache. - discussed with the patient to continue taking her medications as prescribed, patient is not sure how many times a day she is taking hydralazine 10 mg. Discussed with the patient to make sure she takes it 3 times a day and also we increase the metoprolol succinate dose to 50 mg b.i.d.. 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 Differential Diagnosis Differential Diagnoses: The differential diagnosis associated with the presentation includes ( Hypertensive urgency, hypertensive emergency, intracranial bleed) Admission/Observation Consideration of admission/observation: Escalation of care including admission/observation considered ( given patient's blood pressure on arrival, patient was considered) Lab Data MDM Lab Attestation statement: I reviewed the patient's lab results. 09/21/23 21:05 09/21/23 21:05 Labs: Lab Results 09/21/23 Range/Units 21:05 WBC 11.7 H (4.8-10.8) X10*3/uL RBC 4.71 (4.20-5.50) X10*6/uL Hgb 13.6 (12.0-16.0) g/dl Hct 41.6 (37.0-47.0) % MCV 88.3 (80.0-98.0) fL MCH 28.9 (27.0-33.0) pg MCHC 32.7 (31.0-35.0) g/dl RDW 14.0 (11.0-16.0) % Plt Count 261 (160-400) X10*3/uL MPV 11.4 (9.4-12.3) fL Immature Gran % (Auto) 0.4 (0.0-0.4) % Neut % (Auto) 65.3 (45-73) % Lymph % (Auto) 22.8 (20-40) % [place] % (Auto) 10.2 (2-11) % Eos % (Auto) 1.1 (0-4) % Baso % (Auto) 0.2 (0-2) % Lymph # (Auto) 2.7 (1.2-4.9) X10*3/uL [place] # (Auto) 1.2 (0.1-1.2) X10*3/uL Eos # (Auto) 0.1 (0.0-0.4) X10*3/uL Baso # (Auto) 0.0 (0.0-0.2) X10*3/uL Abs Immat Gran (auto) 0.05 H (0.00-0.03) X10*3/uL Absolute Neuts (auto) 7.7 (2.0-8.3) x10*3/uL Absolute Nucleated RBC 0.000 (0.0-0.012) X10*3/uL Nucleated RBC % (auto) 0.0 (0.0-0.2) /100WBC Sodium 140 (135-145) mmol/L Potassium 3.6 (3.3-5.1) mmol/L Chloride 104 (96-108) mmol/L Carbon Dioxide 30 H (22-29) mmol/L Anion Gap 10 L (12-20) BUN 10 (9-16) mg/dL Creatinine 0.81 (0.5-1.4) mg/dL Estim Creat Clear Calc 112.1 Estimated GFR > 60 Random Glucose 101 (60-115) mg/dL Calcium 9.5 D (8.4-10.2) mg/dL Magnesium 2.1 (1.6-2.6) mg/dL Total Bilirubin 0.4 (0.0-1.0) mg/dL AST 21 (5-31) U/L ALT 28 (0-31) U/L Alkaline Phosphatase 79 (39-117) U/L Troponin I High Sens 2.9 (<3.5-17.0) ng/L Total Protein 7.6 (6.5-8.0) g/dL Albumin 4.2 (3.5-5.0) g/dL Independent Interpretation I performed an independent interpretation of an: CT Scan Radiology Impression Discussion of test interpretation with radiology: I have reviewed the radiologist's reading. Radiologist Impression: FINDINGS: There is no evidence of acute intracranial hemorrhage. No mass-effect or ventricular shift is noted. No acute, territorial loss of treadwell-white differentiation. The ventricles and sulci are appropriate in size and configuration for the patient's stated age. Periventricular and subcortical white matter hypodensity is nonspecific but likely represents chronic microvascular ischemic change. Intracranial atherosclerotic calcification is noted. No depressed calvarial fracture. Right greater left maxillary sinus mucus retention cyst/polyps. The mastoid air cells are clear. CT/CT head/brain wo IV con IMPRESSION: No acute intracranial hemorrhage, mass effect, or midline shift. Critical Care Time Critical Care Time Critical Care Time: Yes Total Critical Care Time: 60 Attestation: I have personally provided critical care time. Time includes review of lab data, radiology results, discussion with consultants, and monitoring for potential decompensation. Intervention performed as documented. Discharge Plan Discharge Clinical Impression: Hypertensive urgency Patient Disposition: Home, Self-Care Instructions: Hypertensive Crisis (ED) Additional Instructions: please make sure that you take hydralazine 3 times a day. Also, please increase metoprolol to 50 mg daily. Please follow-up with your primary care physician tomorrow. If you have any worsening or new symptoms, please return to the emergency room or call 911 Prescriptions: No Action albuterol sulfate 90 mcg/actuation aerosol powdr breath activated 2 inh inhalation Q4-6H PRN (Reason: shortness of breath or wheezing) Qty: 1 0RF prednisone 20 mg tablet 40 mg PO DAILY 5 Days Qty: 10 0RF miconazole nitrate 2 % cream 1 appful vaginal BEDTIME 7 Days Qty: 45 0RF nitrofurantoin monohyd/m-cryst [Macrobid] 100 mg capsule 100 mg PO Q12H 5 Days Qty: 10 0RF Rx Instructions: must administer with a meal/food sulfamethoxazole-trimethoprim [Bactrim DS] 800-160 mg tablet 1 tab PO BID Qty: 10 0RF phenazopyridine [Pyridium] 200 mg tablet 200 mg PO TID PRN (Reason: pain) Qty: 6 0RF acetaminophen 500 mg tablet 1,000 mg PO QID PRN (Reason: pain) Qty: 30 0RF ibuprofen 600 mg tablet 600 mg PO Q6H PRN (Reason: pain) Qty: 20 0RF cyclobenzaprine 5 mg tablet 5 mg PO TID PRN (Reason: muscle spasm) Qty: 14 0RF Print Language: Martiniquais
[2023-09-21 21:06] VITALS: BP 205/99; PULSE 67; RESP 12; O2SAT 98
[2023-09-21 21:10] LABS: MANUAL DIFF FLAG NO
[2023-09-21 21:13] LABS: Basophils Percent Auto 0.2 % (0-2); Eosinophils Absolute Auto 0.1 X10*3/uL (0.0-0.4); Eosinophils Percent Auto 1.1 % (0-4); Hematocrit 41.6 % (37.0-47.0); Hemoglobin 13.6 g/dl (12.0-16.0); Imm Gran Abs Auto 0.05 X10*3/uL (0.00-0.03); Imm Gran Pct Auto 0.4 % (0.0-0.4); Lymphocytes Absolute Auto 2.7 X10*3/uL (1.2-4.9); Lymphocytes Percent Auto 22.8 % (20-40); Mean Corpuscular HGB Conc 32.7 g/dl (31.0-35.0); Mean Corpuscular Hemoglobin 28.9 pg (27.0-33.0); Mean Corpuscular Volume 88.3 fL (80.0-98.0); Mean Platelet Volume 11.4 fL (9.4-12.3); Monocytes Absolute Auto 1.2 X10*3/uL (0.1-1.2); Monocytes Percent Auto 10.2 % (2-11); Neutrophils Absolute Auto 7.7 x10*3/uL (2.0-8.3); Neutrophils Percent Auto 65.3 % (45-73); Platelet Count 261 X10*3/uL (160-400); Red Blood Count 4.71 X10*6/uL (4.20-5.50); White Blood Count 11.7 X10*3/uL (4.8-10.8)
[2023-09-21 21:16] VITALS: BP 205/99; PULSE 74
[2023-09-21] MEDS: LORazepam 1 MG TABLET 2 MG PO (21:16)
[2023-09-21] MEDS: Labetalol HCL 100 MG/20 ML VIAL 10 MG IVPUSH (21:16)
[2023-09-21 21:33] LABS: Alanine Aminotransferase 28 U/L (0-31); Albumin Level 4.2 g/dL (3.5-5.0); Alkaline Phosphatase 79 U/L (39-117); Anion Gap 10 (12-20); Aspartate Amino Transferase 21 U/L (5-31); Bilirubin Total 0.4 mg/dL (0.0-1.0); Blood Urea Nitrogen 10 mg/dL (9-16); Calcium 9.5 mg/dL (8.4-10.2); Carbon Dioxide 30 mmol/L (22-29); Chloride 104 mmol/L (96-108); Creatinine Clr Calc Pharmacy 112.1; Estimated Glomerular Filt Rate > 60; Glucose Random 101 mg/dL (60-115); Magnesium 2.1 mg/dL (1.6-2.6); Potassium 3.6 mmol/L (3.3-5.1); Sodium 140 mmol/L (135-145); Total Protein 7.6 g/dL (6.5-8.0); Troponin-I High Sensitivity 2.9 ng/L (<3.5-17.0)
[2023-09-21 21:59] VITALS: BP 170/65; PULSE 63; RESP 20; TEMP 36.1; O2SAT 93
[2023-09-21 22:39] VITALS: BP 170/65; PULSE 63; RESP 20; TEMP 36.1; O2SAT 98
== END 2023-09-21 22:40 | disposition home or self-care (01) ==
PROVIDERS: Physician Assistant; Emergency Provider Emergency Medicine; PCP Nurse Practitioner
DX: I16.0 Hypertensive urgency (principal); Z79.899 Other long term (current) drug therapy
CPT/HCPCS: 36415; 70450; 80053; 83735; 84484; 85025; 93005; 96374; 99284; J1920

== ENCOUNTER → 2023-09-21 20:45 | Outpatient (BNV) | payer MEDICAID, SELFPAY | PROVIDERS: Emergency Provider Emergency Medicine; PCP Nurse Practitioner; Visit Provider Internal Medicine | DX: R94.31 Abnormal electrocardiogram [ECG] [EKG] (principal) | CPT/HCPCS: 93010 ==

== ENCOUNTER 2024-01-29 09:04 | Emergency (ER) | payer MEDICAID, SELFPAY ==
[2024-01-29 09:13] VITALS: BP 174/81; PULSE 68; RESP 18; TEMP 37.1; O2SAT 99; BMI 49.3
[2024-01-29 10:13] LABS: Influenza A PCR NEGATIVE (Negative); Influenza B PCR NEGATIVE (Negative); Resp Syncy Virus RNA Qual PCR NEGATIVE (Negative); SARS COV2 PCR INHOUSE NEGATIVE (Negative)
--- NOTE | 2024-01-29 10:17 | ED_ITS ---
HPI - Asthma General Chief Complaint: Asthma Stated Complaint: diff breathing Time Seen by Provider: 01/29/24 09:54 Source: patient and certified court/medical interpreter Mode of arrival: ambulatory Limitations: language barrier History of Present Illness ED Provider: yvonne SALDANA Narrative: Patient is a 48-year-old female with history of asthma presenting to the emergency department complaining of shortness of breath since 6:00 a.m. this morning. States that she was sleeping when she was woken with shortness of breath, noted that her tenant was cleaning his floors with bleach which exacerbated her asthma. Reports that she developed a dry cough and had difficulty catching her breath. She did not use any inhalers or other medications for her symptoms at home. Denies fevers, chest pain, palpitations. Denies headache or vision changes. BP elevated in triage, however, patient states she did not take her BP medication this morning. MD complaint: asthma attack Onset (ago): hour(s) Context: cleaning product exposure Associated symptoms: dry cough Related Data Previous Rx's ?Medication ?Instructions ?Recorded miconazole nitrate 2 % vaginal 1 appful vaginal BEDTIME 7 days 02/07/22 cream #45 grams nitrofurantoin 100 mg PO Q12H 5 days #10 caps 02/07/22 monohydrate/macrocrystals 100 mg capsule (Macrobid) albuterol sulfate 90 mcg/actuation 2 inh inhalation Q4-6H PRN 05/13/22 breath activated powder inhaler shortness of breath or wheezing #1 ea prednisone 20 mg tablet 40 mg (2 x 20 mg) PO DAILY 5 days 05/13/22 #10 tabs phenazopyridine 200 mg tablet 200 mg PO TID PRN pain 6 doses #6 09/07/22 (Pyridium) tabs sulfamethoxazole 800 1 tab PO BID #10 tabs 09/07/22 mg-trimethoprim 160 mg tablet (Bactrim DS) acetaminophen 500 mg tablet 1,000 mg (2 x 500 mg) PO QID PRN 08/27/23 pain #30 tabs cyclobenzaprine 5 mg tablet 5 mg PO TID PRN muscle spasm #14 08/27/23 tabs ibuprofen 600 mg tablet 600 mg PO Q6H PRN pain #20 tabs 08/27/23 albuterol sulfate 2.5 mg/0.5 mL 5 mg inhalation Q6H PRN shortness 01/29/24 solution for nebulization of breath or wheezing #30 ea prednisone 20 mg tablet 40 mg (2 x 20 mg) PO DAILY #10 tabs 01/29/24 Allergies Allergy/AdvReac Type Severity Reaction Status Date / Time No Known Allergies Allergy Verified 01/29/24 09:16 Review of Systems Review of Systems: As per HPI. Yes all other systems are reviewed and are negative Constitutional: Constitutional: Reports as per HPI [facility] Past Medical History Medical History Hypertension Social History Social History Patient Tobacco Use Status: Never used Tobacco Advance Directives: No Advance Directives Information Provided: No Do you have a plan to hurt others: No Plan Physical Exam Vital Signs: Vital Signs: Last Vital Signs Temp 97.9 F 01/29/24 11:30 Pulse 57 01/29/24 11:30 Resp 16 01/29/24 11:30 BP 155/85 H 01/29/24 11:30 Pulse Ox 100 01/29/24 11:30 O2 Del Method Room Air 01/29/24 11:30 BMI result Body Mass Index 49.3 Vital signs have been reviewed and appear to be correct. Blood pressure elevated, did not take BP medication this morning. Heart rate normal. Respiratory rate normal. Temperature normal. Oxygen saturation normal. Const: General: cooperative and no acute distress Orientation/consciousness: oriented to person, oriented to place, oriented to time and patient oriented x3 Limitations: no limitations HEENT: Head: Yes normocephalic and Yes atraumatic Ears: external ears normal General nose exam: Normal external nose present Face and sinus: Yes face symmetric Mouth: oropharynx normal and moist mucous membranes Throat: Yes uvula midline Eyes: Pupils: Equal, round and reactive pupils present Neck: Neck: Yes normal visual inspection and Yes supple Resp: Effort & Inspection: normal respiratory effort and able to speak in complete sentences Auscultation: no wheezes and diminished lung sounds b ilateral throughout Cardio: Rate: regular rate Rhythm: regular rhythm Heart sounds: S1 noe l heart sound present and S2 normal heart sound present GI: Palpation (GI): Soft to palpation and nontender Auscultation: normoactive bowel sounds : General: Yes no CVA tenderness Back/Spine/Pelvis: Back: no CVA tenderness Skin: General skin exam: elasticity normal and turgor normal Neuro: General: oriented to person, oriented to place, oriented to time, patient oriented x3, moves all extremities, no focal motor deficits and CN's II- XI intact bilaterally Cranial nerves: Yes Equal, round and reactive pupils present Cognition (Neuro): normal cognition Extrem: General: Yes full ROM, Yes no pedal edema and Yes no calf tenderness Psych: Mental Status: mental status grossly normal Affect: normal affect Thought process: Normal thought process present Medications Administered Discontinued Medications Generic Name Dose Route Start Last Admin Trade Name Freq PRN Reason Stop Dose Admin Albuterol Sulfate 2.5 mg/ 0 mg 01/29/24 10:38 01/29/24 10:42 Albuterol/Ipratropium 3 ml INHALE 01/29/24 10:39 1 dose ONCE ONE Administration Prednisone 40 mg 01/29/24 10:27 01/29/24 10:52 Prednisone 20 Mg Tablet PO 01/29/24 10:28 40 mg ONCE ONE Administration Medical Decision Making Medical Decision Making [facility] Narrative: Patient is a 48-year-old female with history of asthma presenting to the emergency department complaining of shortness of breath since 6:00 a.m. this morning. On exam patient is awake, A+Ox3, BP elevated, VS otherwise WNL, afebrile, normal neurological exam without focal deficits, physical exam findings as above. Given reported symptoms and physical exam findings, initial differential includes asthma exacerbation, viral illness, COVID, flu, RSV. Viral serology negative. Symptoms improved in the ED with prednisone and breathing treatment. Will discharge patient home on short course of prednisone. Patient reports that she has adequate albuterol inhaler but is requesting liquid albuterol for her nebulizer. Patient also initially reported that she did not take her blood pressure medication this morning, upon further conversation patient states she has been out of her blood pressure medications for 4 days. When I called [facility] to confirm doses of her blood pressure medications, the pharmacist confirmed that she has not filled her metoprolol and losartan/HCTZ since April of 2023. Discussed patient that she will need to contact her PCP for an appointment to restart these blood pressure medications and that they cannot be restarted in the ED today. Return precautions discussed at bedside. Patient verbalized understanding of and agreement with plan. Assessment, results, return precautions and plan discussed via in-person spanish interpreter at bedside. Differential Diagnosis Differential Diagnoses: The differential diagnosis associated with the presentation includes As per [facility] Lab Data [facility] Lab Attestation statement: I reviewed the patient's lab results. As per [facility] Labs: Lab Results 01/29/24 Range/Units 09:25 Influenza Type A (PCR) NEGATIVE (Negative) Influenza Type B (PCR) NEGATIVE (Negative) RSV RNA Qual (PCR) NEGATIVE (Negative) SARS-CoV-2 RNA (RT-PCR) NEGATIVE (Negative) External Record Review External record reviewed: Inpatient record, Office record and Outpatient record Prescription Management I considered prescription management with: Other Discharge Plan Discharge Clinical Impression: Asthma with acute exacerbation Patient Disposition: Home, Self-Care Instructions: Asthma (DC) Additional Instructions: You were evaluated in the emergency department today for shortness of breath which is likely due to an asthma exacerbation triggered by cleaning products. You were tested for Covid, flu, and RSV and those were all negative. Your symptoms improved in the emergency department with medications. You are being prescribed a course of prednisone to decrease inflammation. We also recommend that you use your prescribed inhalers at home. Follow up with your primary care provider to discuss your blood pressure medications. Return to the emergency department if you develop worsening shortness of breath, difficulty breathing, chest pain, fever or any other concerning symptoms. Prescriptions: New prednisone 20 mg tablet 40 mg PO DAILY Qty: 10 0RF albuterol sulfate 2.5 mg/0.5 mL solution for nebulization 5 mg inhalation Q6H PRN (Reason: shortness of breath or wheezing) Qty: 30 0RF No Action albuterol sulfate 90 mcg/actuation aerosol powdr breath activated 2 inh inhalation Q4-6H PRN (Reason: shortness of breath or wheezing) Qty: 1 0RF prednisone 20 mg tablet 40 mg PO DAILY 5 Days Qty: 10 0RF miconazole nitrate 2 % cream 1 appful vaginal BEDTIME 7 Days Qty: 45 0RF nitrofurantoin monohyd/m-cryst [Macrobid] 100 mg capsule 100 mg PO Q12H 5 Days Qty: 10 0RF Rx Instructions: must administer with a meal/food sulfamethoxazole-trimethoprim [Bactrim DS] 800-160 mg tablet 1 tab PO BID Qty: 10 0RF phenazopyridine [Pyridium] 200 mg tablet 200 mg PO TID PRN (Reason: pain) Qty: 6 0RF acetaminophen 500 mg tablet 1,000 mg PO QID PRN (Reason: pain) Qty: 30 0RF ibuprofen 600 mg tablet 600 mg PO Q6H PRN (Reason: pain) Qty: 20 0RF cyclobenzaprine 5 mg tablet 5 mg PO TID PRN (Reason: muscle spasm) Qty: 14 0RF Print Language: Panamanian
[2024-01-29] MEDS: Albuterol Sulfate 2.5 MG, Albuterol/Iprat 2.5/0.5MG 3 ML 3 ML INHALE (10:42)
[2024-01-29 10:43] VITALS: PULSE 68; RESP 18; O2SAT 96
[2024-01-29] MEDS: predniSONE 20 MG TABLET 40 MG PO (10:52)
[2024-01-29 11:30] VITALS: BP 155/85; PULSE 57; RESP 16; TEMP 36.6; O2SAT 100
[2024-01-29 12:18] VITALS: BP 155/85; PULSE 57; RESP 16; TEMP 36.6; O2SAT 100
== END 2024-01-29 12:24 | disposition home or self-care (01) ==
PROVIDERS: Emergency Provider Emergency Medicine; PCP Nurse Practitioner
DX: J45.901 Unspecified asthma with (acute) exacerbation (principal); R06.02 Shortness of breath; R05.9 Cough, unspecified; Z03.818 Encounter for observation for suspected exposure to other biological agents ruled out
CPT/HCPCS: 0241U; 94640; 99284

== ENCOUNTER 2024-04-25 10:38 | Emergency (ER) | payer MEDICAID, SELFPAY ==
--- NOTE | ~2024-04-25 | XR_ITS ---
EXAMINATION: XR CHEST CLINICAL INFORMATION: CP COMPARISON: X-ray dated May 13, 2022 TECHNIQUE: 2 views of the chest were obtained. FINDINGS: No consolidation, pleural effusion or pneumothorax. Cardiomediastinal silhouette demonstrates a round cardiac apex. Calcified plaque thoracic aorta. Multilevel thoracic spondylosis. XR/XR chest 2V IMPRESSION: No acute airspace disease. Probable hypertensive cardiomyopathy. Electronically signed by: Max Quinn MD 04/25/2024 11:22 AM RAYSA
--- NOTE | 2024-04-25 10:40 | ECG_ITS ---
Test Reason : CHEST PAIN Blood Pressure : / mmHG Vent. Rate : 067 BPM Atrial Rate : 067 BPM P-R Int : 162 ms QRS Dur : 082 ms QT Int : 410 ms P-R-T Axes : 024 -33 000 degrees QTc Int : 433 ms Normal sinus rhythm Left axis deviation Moderate voltage criteria for LVH, may be normal variant ( R in aVL , [place] product ) Cannot rule out Anterior infarct , age undetermined Abnormal ECG When compared with ECG of 21-SEP-2023 20:59, No significant change was found Referred By: Generic ED Physician Electronically Signed By:MICHAEL OATES MD
[2024-04-25 10:53] VITALS: BP 156/97; PULSE 72; RESP 20; TEMP 37; O2SAT 97; BMI 50.5
[2024-04-25 11:11] LABS: MANUAL DIFF FLAG NO
--- NOTE | 2024-04-25 11:11 | ED_ITS ---
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 patient reports that she had left arm pain that started 2 days ago. She denies any injury. Yesterday she developed left-sided chest pain. The pain does not radiate. She reports some associated nausea and shortness of breath. she reports that she had leg swelling yesterday which she believes related to the fact that she did not have her hydrochlorothiazide for a few days. she reports that she has all of her medications now and has been compliant them her pain is currently a 5/10 and she describes it as a pressure denies any fevers chills, sick contacts no other complaints or concerns at this time Related Data Previous Rx's ?Medication ?Instructions ?Recorded miconazole nitrate 2 % vaginal 1 appful vaginal BEDTIME 7 days 02/07/22 cream #45 grams nitrofurantoin 100 mg PO Q12H 5 days #10 caps 02/07/22 monohydrate/macrocrystals 100 mg capsule (Macrobid) albuterol sulfate 90 mcg/actuation 2 inh inhalation Q4-6H PRN 05/13/22 breath activated powder inhaler shortness of breath or wheezing #1 ea prednisone 20 mg tablet 40 mg (2 x 20 mg) PO DAILY 5 days 05/13/22 #10 tabs phenazopyridine 200 mg tablet 200 mg PO TID PRN pain 6 doses #6 09/07/22 (Pyridium) tabs sulfamethoxazole 800 1 tab PO BID #10 tabs 09/07/22 mg-trimethoprim 160 mg tablet (Bactrim DS) acetaminophen 500 mg tablet 1,000 mg (2 x 500 mg) PO QID PRN 08/27/23 pain #30 tabs cyclobenzaprine 5 mg tablet 5 mg PO TID PRN muscle spasm #14 08/27/23 tabs ibuprofen 600 mg tablet 600 mg PO Q6H PRN pain #20 tabs 08/27/23 albuterol sulfate 2.5 mg/0.5 mL 5 mg inhalation Q6H PRN shortness 01/29/24 solution for nebulization of breath or wheezing #30 ea prednisone 20 mg tablet 40 mg (2 x 20 mg) PO DAILY #10 tabs 01/29/24 Allergies Allergy/AdvReac Type Severity Reaction Status Date / Time No Known Allergies Allergy Verified 04/25/24 10:57 Review of Systems 2 Constitutional: Constitutional: Denies body ache(s), Denies chills, Denies fever(s) and Denies headache(s) Eyes: Eyes: Denies blurry vision ENT: Denies vertigo and Denies headache(s) Cardiovascular: Cardiovascular: Reports chest pain, Reports chest pain at rest, Reports chest pain with activity and Reports dyspnea Respiratory: Respiratory: Denies cough and Reports dyspnea Gastrointestinal: Gastrointestinal: Denies abdominal pain, Reports nausea and Denies vomiting Musculoskeletal: Musculoskeletal: Denies back pain and Reports radiating pain into limb Integumentary/Breasts: Skin/Breast: Denies rash Neurologic: Denies vertigo and Denies headache(s) Psychiatric: Psychiatric: Denies anxiety and Denies panic attacks PMFSH Past Medical History Medical History Hypertension Social History Social History Patient Tobacco Use Status: Never used Tobacco Smoked in Last 30 Days: No Advance Directives: No Advance Directives Information Provided: Yes Do you have a plan to hurt others: No Plan Patient : No Physical Exam 2 Vital Signs: Vital Signs: Last Vital Signs Temp 98.5 F 04/25/24 11:56 Pulse 59 04/25/24 11:56 Resp 16 04/25/24 11:56 BP 145/72 H 04/25/24 11:56 Pulse Ox 98 04/25/24 11:56 O2 Del Method Room Air 04/25/24 11:56 BMI result Body Mass Index 50.5 Const: General: healthy appearing, comfortable, no acute distress, alert and awake Nutritional Appearance: well nourished Orientation/consciousness: p atient oriented x3 HEENT: Head: Yes normocephalic and Yes atraumatic Eyes: Eyelids: Yes eyelids normal Conjunctivae: conjunctivae normal S clerae: sclerae normal Corneas: corneas normal Pupils: Equal, round and reactive pupils present EOM: EOMs intact bilaterally Neck: Neck: Yes full ROM Chest: Other: the patient is tender to palpation of the left chest wall without crepitus Chest palpation & inspection: no crepitus Resp: Effort & Inspection: normal respiratory effort, able to speak in complete sentences and not labored Cardio: Rate: regular rate Rhythm: regular rhythm GI: Inspection: No distended Palpation (GI): Soft to palpation, not firm, nontender, no guarding and not rigid Skin: General skin exam: elasticity normal Neuro: General: patient oriented x3 Cranial nerves: Yes Equal, round and reactive pupils present and Yes Bilaterally intact EOM present Cognition (Neuro): normal cognition Extrem: Other: there was no obvious deformity to left upper extremity. She has pain elicited in the left bicipital groove with abduction of the left upper extremity. She was also tender to palpation over this area of the bicipital groove and tender to palpation of the left biceps region. No obvious edema to the left upper extremity. Full range of motion of the left elbow without pain or tenderness. Medical Decision Making Medical Decision Making [facility] Narrative: 48-year-old female with past medical history as documented above presents for evaluation of left arm pain and chest pain. Her pain is reproducible on exam with range of motion as well as palpation. Her EKG is nondiagnostic but without acute ischemic changes compared to her previous from September of this year. Chest x-ray shows probable Hypertensive cardiomyopathy but no acute abnormalities. the patient's labs do not show any acute abnormalities. Troponin is undetectable and she rules out for ACS given that her pain is reproducible, troponin is negative and her EKG is nonischemic. Her pain is most likely musculoskeletal in origin. She was able history of hypertension although her blood pressure is well controlled today most recently 133/80. Differential Diagnosis Differential Diagnoses: The differential diagnosis associated with the presentation includes chest pain ACS PE Costochondritis Hypertensive urgency GERD Admission/Observation Consideration of admission/observation: Escalation of care including admission/observation considered Lab Data [facility] Lab Attestation statement: I reviewed the patient's lab results. no leukocytosis or anemia. Normal platelet count. No electrolyte abnormalities. Troponin undetectable 04/25/24 11:06 04/25/24 11:06 Labs: Lab Results 04/25/24 04/25/24 04/25/24 Range/Units 11:05 11:06 11:22 WBC 8.5 (4.8-10.8) X10*3/uL RBC 4.85 (4.20-5.50) X10*6/uL Hgb 14.2 (12.0-16.0) g/dl Hct 42.8 (37.0-47.0) % MCV 88.2 (80.0-98.0) fL MCH 29.3 (27.0-33.0) pg MCHC 33.2 (31.0-35.0) g/dl RDW 13.9 (11.0-16.0) % Plt Count 243 (160-400) X10*3/uL MPV 11.6 (9.4-12.3) fL Immature Gran % (Auto) 0.4 (0.0-0.4) % Neut % (Auto) 55.7 (45-73) % Lymph % (Auto) 29.0 (20-40) % [place] % (Auto) 12.5 H (2-11) % Eos % (Auto) 2.0 (0-4) % Baso % (Auto) 0.4 (0-2) % Lymph # (Auto) 2.5 (1.2-4.9) X10*3/uL [place] # (Auto) 1.1 (0.1-1.2) X10*3/uL Eos # (Auto) 0.2 (0.0-0.4) X10*3/uL Baso # (Auto) 0.0 (0.0-0.2) X10*3/uL Abs Immat Gran (auto) 0.03 (0.00-0.03) X10*3/uL Absolute Neuts (auto) 4.7 (2.0-8.3) x10*3/uL Absolute Nucleated RBC 0.000 (0.0-0.012) X10*3/uL Nucleated RBC % (auto) 0.0 (0.0-0.2) /100WBC Hold Purple Top SEE NOTE Hold Blue Top SEE NOTE Sodium 139 (135-145) mmol/L Potassium 3.5 (3.3-5.1) mmol/L Chloride 105 (96-108) mmol/L Carbon Dioxide 25 (22-29) mmol/L Anion Gap 13 (12-20) BUN 10 (9-16) mg/dL Creatinine 0.81 (0.5-1.4) mg/dL Estim Creat Clear Calc 118.3 Estimated GFR > 60 Random Glucose 99 (60-115) mg/dL Calcium 9.1 (8.4-10.2) mg/dL Total Bilirubin 0.9 (0.0-1.0) mg/dL Direct Bilirubin 0.2 (0.0-0.5) mg/dL AST 24 (5-31) U/L ALT 33 H (0-31) U/L Alkaline Phosphatase 60 (39-117) U/L Troponin I High Sens < 2.7 (<3.5-17.0) ng/L Total Protein 7.2 (6.5-8.0) g/dL Albumin 4.1 (3.5-5.0) g/dL Lipase 21 (8-78) U/L Influenza Type A (PCR) NEGATIVE (Negative) Influenza Type B (PCR) NEGATIVE (Negative) RSV RNA Qual (PCR) NEGATIVE (Negative) SARS-CoV-2 RNA (RT-PCR) NEGATIVE (Negative) Independent Interpretation I performed an independent interpretation of an: EKG ( normal sinus rhythm with a rate of 67 beats minute. No significant change when compared to previous from September of this year) Discharge Plan Discharge Clinical Impression: Atypical chest pain Patient Disposition: Home, Self-Care Instructions: Chest Pain (ED) Additional Instructions: your workup in the ER today was reassuring. This includes your blood work, chest x-ray, viral swabs and EKG your pain is likely related to a muscle strain you may use Tylenol as needed for your pain follow-up with your primary doctor, return for new or worsening symptoms Prescriptions: No Action albuterol sulfate 90 mcg/actuation aerosol powdr breath activated 2 inh inhalation Q4-6H PRN (Reason: shortness of breath or wheezing) Qty: 1 0RF prednisone 20 mg tablet 40 mg PO DAILY 5 Days Qty: 10 0RF miconazole nitrate 2 % cream 1 appful vaginal BEDTIME 7 Days Qty: 45 0RF nitrofurantoin monohyd/m-cryst [Macrobid] 100 mg capsule 100 mg PO Q12H 5 Days Qty: 10 0RF Rx Instructions: must administer with a meal/food sulfamethoxazole-trimethoprim [Bactrim DS] 800-160 mg tablet 1 tab PO BID Qty: 10 0RF phenazopyridine [Pyridium] 200 mg tablet 200 mg PO TID PRN (Reason: pain) Qty: 6 0RF prednisone 20 mg tablet 40 mg PO DAILY Qty: 10 0RF albuterol sulfate 2.5 mg/0.5 mL solution for nebulization 5 mg inhalation Q6H PRN (Reason: shortness of breath or wheezing) Qty: 30 0RF acetaminophen 500 mg tablet 1,000 mg PO QID PRN (Reason: pain) Qty: 30 0RF ibuprofen 600 mg tablet 600 mg PO Q6H PRN (Reason: pain) Qty: 20 0RF cyclobenzaprine 5 mg tablet 5 mg PO TID PRN (Reason: muscle spasm) Qty: 14 0RF Print Language: Niuean
[2024-04-25 11:13] LABS: Basophils Percent Auto 0.4 % (0-2); Eosinophils Absolute Auto 0.2 X10*3/uL (0.0-0.4); Hematocrit 42.8 % (37.0-47.0); Hemoglobin 14.2 g/dl (12.0-16.0); Imm Gran Abs Auto 0.03 X10*3/uL (0.00-0.03); Imm Gran Pct Auto 0.4 % (0.0-0.4); Lymphocytes Absolute Auto 2.5 X10*3/uL (1.2-4.9); Mean Corpuscular HGB Conc 33.2 g/dl (31.0-35.0); Mean Corpuscular Hemoglobin 29.3 pg (27.0-33.0); Mean Corpuscular Volume 88.2 fL (80.0-98.0); Mean Platelet Volume 11.6 fL (9.4-12.3); Monocytes Absolute Auto 1.1 X10*3/uL (0.1-1.2); Monocytes Percent Auto 12.5 % (2-11); Neutrophils Absolute Auto 4.7 x10*3/uL (2.0-8.3); Neutrophils Percent Auto 55.7 % (45-73); Platelet Count 243 X10*3/uL (160-400); Red Blood Count 4.85 X10*6/uL (4.20-5.50); Red Cell Distribution Width 13.9 % (11.0-16.0); White Blood Count 8.5 X10*3/uL (4.8-10.8)
[2024-04-25 11:28] LABS: Alanine Aminotransferase 33 U/L (0-31); Albumin Level 4.1 g/dL (3.5-5.0); Alkaline Phosphatase 60 U/L (39-117); Anion Gap 13 (12-20); Aspartate Amino Transferase 24 U/L (5-31); Bilirubin Direct 0.2 mg/dL (0.0-0.5); Bilirubin Total 0.9 mg/dL (0.0-1.0); Blood Urea Nitrogen 10 mg/dL (9-16); Calcium 9.1 mg/dL (8.4-10.2); Carbon Dioxide 25 mmol/L (22-29); Chloride 105 mmol/L (96-108); Creatinine Clr Calc Pharmacy 118.3; Estimated Glomerular Filt Rate > 60; Glucose Random 99 mg/dL (60-115); Lipase 21 U/L (8-78); Potassium 3.5 mmol/L (3.3-5.1); Sodium 139 mmol/L (135-145); Total Protein 7.2 g/dL (6.5-8.0)
[2024-04-25 11:37] LABS: Troponin-I High Sensitivity < 2.7 ng/L (<3.5-17.0)
[2024-04-25 11:56] VITALS: BP 145/72; PULSE 59; RESP 16; TEMP 36.9; O2SAT 98
[2024-04-25 12:15] LABS: Influenza A PCR NEGATIVE (Negative); Influenza B PCR NEGATIVE (Negative); Resp Syncy Virus RNA Qual PCR NEGATIVE (Negative); SARS COV2 PCR INHOUSE NEGATIVE (Negative)
[2024-04-25 12:23] VITALS: BP 140/86; PULSE 73; RESP 20; O2SAT 100
[2024-04-25 12:31] VITALS: BP 140/86; PULSE 73; RESP 20; TEMP 36.9; O2SAT 100
== END 2024-04-25 12:32 | disposition home or self-care (01) ==
PROVIDERS: Emergency Provider Emergency Medicine; PCP Nurse Practitioner
DX: R07.89 Other chest pain (principal); I25.10 Atherosclerotic heart disease of native coronary artery without angina pectoris; I10 Essential (primary) hypertension; R11.0 Nausea; R06.02 Shortness of breath; Z03.818 Encounter for observation for suspected exposure to other biological agents ruled out; Z79.899 Other long term (current) drug therapy
CPT/HCPCS: 0241U; 36415; 71046; 80048; 80076; 83690; 84484; 85025; 93005; 99283; 99284

== ENCOUNTER → 2024-04-25 10:40 | Outpatient (BNV) | payer MEDICAID, SELFPAY | PROVIDERS: Emergency Provider Emergency Medicine; PCP Nurse Practitioner; Visit Provider Internal Medicine Cardiovascular Disease | DX: R07.9 Chest pain, unspecified (principal); R94.31 Abnormal electrocardiogram [ECG] [EKG] | CPT/HCPCS: 93010 ==

== ENCOUNTER → 2024-04-25 10:58 | Outpatient (BNV) | payer MEDICAID, SELFPAY | PROVIDERS: Emergency Provider Emergency Medicine; PCP Nurse Practitioner; Visit Provider Radiology Diagnostic Radiology | DX: R07.9 Chest pain, unspecified (principal); I70.0 Atherosclerosis of aorta | CPT/HCPCS: 71046 ==

== ENCOUNTER 2024-05-21 22:00 | Emergency (ER) | payer MEDICAID, SELFPAY ==
[2024-05-21 22:03] VITALS: BP 185/82; PULSE 59; RESP 18; TEMP 36.3; O2SAT 100; BMI 52.2
[2024-05-21 22:35] LABS: Basophils Percent Auto 0.3 % (0-2); Eosinophils Absolute Auto 0.2 X10*3/uL (0.0-0.4); Hematocrit 41.6 % (37.0-47.0); Hemoglobin 13.7 g/dl (12.0-16.0); Imm Gran Abs Auto 0.03 X10*3/uL (0.00-0.03); Imm Gran Pct Auto 0.3 % (0.0-0.4); Lymphocytes Absolute Auto 3.1 X10*3/uL (1.2-4.9); Lymphocytes Percent Auto 36.1 % (20-40); MANUAL DIFF FLAG NO; Mean Corpuscular HGB Conc 32.9 g/dl (31.0-35.0); Mean Corpuscular Hemoglobin 29.7 pg (27.0-33.0); Mean Corpuscular Volume 90.2 fL (80.0-98.0); Mean Platelet Volume 10.8 fL (9.4-12.3); Monocytes Percent Auto 11.3 % (2-11); Neutrophils Absolute Auto 4.3 x10*3/uL (2.0-8.3); Platelet Count 242 X10*3/uL (160-400); Red Blood Count 4.61 X10*6/uL (4.20-5.50); Red Cell Distribution Width 13.7 % (11.0-16.0); White Blood Count 8.7 X10*3/uL (4.8-10.8)
[2024-05-21 22:50] LABS: Alanine Aminotransferase 32 U/L (0-31); Albumin Level 4.1 g/dL (3.5-5.0); Alkaline Phosphatase 57 U/L (39-117); Anion Gap 9 (12-20); Aspartate Amino Transferase 19 U/L (5-31); Bilirubin Total 0.6 mg/dL (0.0-1.0); Blood Urea Nitrogen 9 mg/dL (9-16); Calcium 9.3 mg/dL (8.4-10.2); Carbon Dioxide 31 mmol/L (22-29); Chloride 104 mmol/L (96-108); Creatinine Clr Calc Pharmacy 122.4; Estimated Glomerular Filt Rate > 60; Glucose Random 93 mg/dL (60-115); Potassium 3.9 mmol/L (3.3-5.1); Sodium 140 mmol/L (135-145); Total Protein 7.3 g/dL (6.5-8.0)
[2024-05-21 23:12] LABS: Influenza A PCR NEGATIVE (Negative); Influenza B PCR NEGATIVE (Negative); Resp Syncy Virus RNA Qual PCR NEGATIVE (Negative); SARS COV2 PCR INHOUSE NEGATIVE (Negative)
== END 2024-05-22 01:10 | disposition left against medical advice (07) ==
PROVIDERS: Emergency Provider Emergency Medicine; PCP Nurse Practitioner
DX: R51.9 Headache, unspecified (principal); I10 Essential (primary) hypertension; R11.0 Nausea; Z03.818 Encounter for observation for suspected exposure to other biological agents ruled out; Z53.21 Procedure and treatment not carried out due to patient leaving prior to being seen by health care provider; Z79.899 Other long term (current) drug therapy
CPT/HCPCS: 0241U; 80053; 85025; 99281

== ENCOUNTER 2024-07-14 14:20 | Emergency (ER) | payer MEDICAID, SELFPAY ==
--- NOTE | 2024-07-14 | ECG_ITS ---
Test Reason : CP Blood Pressure : */* mmHG Vent. Rate : 83 BPM Atrial Rate : 83 BPM P-R Int : 164 ms QRS Dur : 82 ms QT Int : 402 ms P-R-T Axes : 53 -30 6 degrees QTcB Int : 472 ms Normal sinus rhythm Left axis deviation Minimal voltage criteria for LVH, may be normal variant ( R in aVL ) Cannot rule out Anterior infarct (cited on or before 25-Apr-2024) Abnormal ECG When compared with ECG of 25-Apr-2024 10:39, No significant change was found Referred By: Generic ED Physician Electronically Signed By: MICHAEL OATES MD
--- NOTE | ~2024-07-14 | XR_ITS ---
CLINICAL HISTORY: CP, SOB 2 view chest x-ray Comparison: CR/SR - XR CHEST 2V - 04/25/24 11:16 EST Findings: The lungs are clear. Borderline heart size. No acute fracture. IMPRESSION: 1. No acute findings. This document has been electronically signed by: Rocio Rehman MD on 07/14/2024 15:45:50
[2024-07-14 14:34] VITALS: BP 144/64; PULSE 67; RESP 18; TEMP 36.6; O2SAT 98; BMI 50.6
--- NOTE | 2024-07-14 14:34 | ED.CHESTPAIN ---
HPI - Chest Pain General Chief Complaint: Chest Pain Stated Complaint: chest pain Related Data Previous Rx's ?Medication ?Instructions ?Recorded miconazole nitrate 2 % vaginal 1 appful vaginal BEDTIME 7 days 02/07/22 cream #45 grams nitrofurantoin 100 mg PO Q12H 5 days #10 caps 02/07/22 monohydrate/macrocrystals 100 mg capsule (Macrobid) albuterol sulfate 90 mcg/actuation 2 inh inhalation Q4-6H PRN 05/13/22 breath activated powder inhaler shortness of breath or wheezing #1 ea prednisone 20 mg tablet 40 mg (2 x 20 mg) PO DAILY 5 days 05/13/22 #10 tabs phenazopyridine 200 mg tablet 200 mg PO TID PRN pain 6 doses #6 09/07/22 (Pyridium) tabs sulfamethoxazole 800 1 tab PO BID #10 tabs 09/07/22 mg-trimethoprim 160 mg tablet (Bactrim DS) acetaminophen 500 mg tablet 1,000 mg (2 x 500 mg) PO QID PRN 08/27/23 pain #30 tabs cyclobenzaprine 5 mg tablet 5 mg PO TID PRN muscle spasm #14 08/27/23 tabs ibuprofen 600 mg tablet 600 mg PO Q6H PRN pain #20 tabs 08/27/23 albuterol sulfate 2.5 mg/0.5 mL 5 mg inhalation Q6H PRN shortness 01/29/24 solution for nebulization of breath or wheezing #30 ea prednisone 20 mg tablet 40 mg (2 x 20 mg) PO DAILY #10 tabs 01/29/24 Allergies Allergy/AdvReac Type Severity Reaction Status Date / Time No Known Allergies Allergy Verified 07/14/24 14:39 [facility] Past Medical History Medical History Hypertension Social History Social History Patient Tobacco Use Status: Never used Tobacco Advance Directives: No Advance Directives Information Provided: No Physical Exam Vital Signs: Vital Signs: Last Vital Signs Temp 97.9 F 07/14/24 14:34 Pulse 67 07/14/24 14:34 Resp 18 07/14/24 14:34 BP 144/64 H 07/14/24 14:34 Pulse Ox 98 07/14/24 14:34 BMI result Body Mass Index 50.6 Course Course Course Narrative: This is an RME performed by Keyla Toth CNP: Additional HPI, ROS, PE not included below will be deferred to primary provider. Patient is a 48-year-old Luxembourger-speaking female who presents emergency department for evaluation of onset dizziness, shortness of breath and left anterior chest pain since early this morning. She went out to eat with family, felt the symptoms slowly progressing. Family attempted to bring her outside for some fresh air she said that she was like she was going to pass out but did not, endorses that symptoms felt worse once going outside. Family got her into the car and brought her to the emergency department. Has had a history of similar symptoms approximately 1 week ago seen by PCP but states she has not seen a specialist. Currently she states she is still dizzy, feels fatigued, chest pain is present but has decreased since its onset. LSCTA bilaterally, no hypoxia, tachypnea, respiratory distress. Speaking clear full sentences. Normal heart sounds. Plan: EKG, CXR, serum labs, viral serologies Reevaluation(s) Reevaluation #1: LWCT Evaluation CBC is without leukocytosis anemia or thrombocytopenia. No significant electrolyte derangement. No SAMANTHA. High sensitive troponin negative x2. BNP not consistent with CHF. Viral serologies negative. EKG revealing normal sinus rhythm with ventricular rate of 83, QTC 472, no ST elevation. 2 view chest x-ray Comparison: CR/SR - XR CHEST 2V - 04/25/24 11:16 EST Findings: The lungs are clear. Borderline heart size. No acute fracture. IMPRESSION: 1. No acute findings. Time: 18:41 Medical Decision Making Lab Data 07/14/24 15:28 07/14/24 15:28 Labs: Lab Results 07/14/24 07/14/24 Range/Units 15:28 17:39 WBC 8.8 (4.8-10.8) X10*3/uL RBC 4.46 (4.20-5.50) X10*6/uL Hgb 13.2 (12.0-16.0) g/dl Hct 40.4 (37.0-47.0) % MCV 90.6 (80.0-98.0) fL MCH 29.6 (27.0-33.0) pg MCHC 32.7 (31.0-35.0) g/dl RDW 13.4 (11.0-16.0) % Plt Count 260 (160-400) X10*3/uL MPV 11.6 (9.4-12.3) fL Immature Gran % (Auto) Cancelled Neut % (Auto) Cancelled Lymph % (Auto) Cancelled Pine % (Auto) Cancelled Eos % (Auto) Cancelled Baso % (Auto) Cancelled Lymph # (Auto) Cancelled Pine # (Auto) Cancelled Eos # (Auto) Cancelled Baso # (Auto) Cancelled Abs Immat Gran (auto) Cancelled Absolute Neuts (auto) Cancelled Absolute Nucleated RBC 0.000 (0.0-0.012) X10*3/uL Nucleated RBC % (auto) 0.0 (0.0-0.2) /100WBC Neutrophils % (Manual) 55 (45-73) % Band Neutrophils % 1 L (3-5) % Lymphocytes % (Manual) 22 (20-40) % Atypical Lymphs % (Man) 8 H (0-6) % Monocytes % (Manual) 11 (2-11) % Eosinophils % (Manual) 3 (0-4) % Abs Neuts (Manual) 4.9 (2.0-8.3) X10*3/uL Lymphocytes # (Manual) 1.9 (1.2-4.9) X10*3/uL Atyp Lymphs # (Manual) 0.7 x10*3/uL Monocytes # (Manual) 1.0 (0.1-1.2) X10*3/uL Eosinophils # (Manual) 0.3 (0.0-0.4) X10*3/uL Platelet Estimate NORMAL (NORMAL) Large Platelets PRESENT Plt Morphology Comment NOTED RBC Morphology NOTED Basophilic Stippling 1+ (0-2) /OIF Schistocytes 1+ (0-2) /OIF PT 11.4 (10.9-12.4) SEC INR 1.0 (0.9-1.1) Sodium 142 (135-145) mmol/L Potassium 3.6 (3.3-5.1) mmol/L Chloride 111 H (96-108) mmol/L Carbon Dioxide 24 (22-29) mmol/L Anion Gap 11 L (12-20) BUN 10 (9-16) mg/dL Creatinine 0.88 (0.5-1.4) mg/dL Estim Creat Clear Calc 109.1 Estimated GFR > 60 Random Glucose 104 (60-115) mg/dL Calcium 8.5 D (8.4-10.2) mg/dL Magnesium 2.0 (1.6-2.6) mg/dL Total Bilirubin 0.6 (0.0-1.0) mg/dL AST 28 (5-31) U/L ALT 36 H (0-31) U/L Alkaline Phosphatase 54 (39-117) U/L Troponin I High Sens < 2.7 < 2.7 (<3.5-17.0) ng/L B-Natriuretic Peptide 82 (<100) pg/mL Total Protein 7.0 (6.5-8.0) g/dL Albumin 3.8 (3.5-5.0) g/dL Lipase 30 (8-78) U/L Urine Color Yellow Urine Appearance Cloudy Urine pH 5.0 (5.0-9.0) Ur Specific Randolph 1.015 (1.005-1.025) Urine Protein Negative (Neg-Trace) mg/dL Urine Glucose (UA) Negative (Negative) mg/dL Urine Ketones Negative (Negative) mg/dL Urine Blood Negative (Negative) Urine Nitrite Negative (Negative) Ur Leukocyte Esterase Trace H (Negative) Urine RBC 0-2 (0-2) /HPF Urine WBC 11-20 H (0-5) /HPF Ur Squamous Epith Cells 11-20 (0-2) /HPF Urine Bacteria 4+ (None Seen) Hyaline Casts 0-2 (0-2) /LPF Influenza Type A (PCR) NEGATIVE (Negative) Influenza Type B (PCR) NEGATIVE (Negative) RSV RNA Qual (PCR) NEGATIVE (Negative) SARS-CoV-2 RNA (RT-PCR) NEGATIVE (Negative) Discharge Plan Discharge Clinical Impression: Chest pain Patient Disposition: Left W/O Completing Treatment Prescriptions: No Action albuterol sulfate 90 mcg/actuation aerosol powdr breath activated 2 inh inhalation Q4-6H PRN (Reason: shortness of breath or wheezing) Qty: 1 0RF prednisone 20 mg tablet 40 mg PO DAILY 5 Days Qty: 10 0RF miconazole nitrate 2 % cream 1 appful vaginal BEDTIME 7 Days Qty: 45 0RF nitrofurantoin monohyd/m-cryst [Macrobid] 100 mg capsule 100 mg PO Q12H 5 Days Qty: 10 0RF Rx Instructions: must administer with a meal/food sulfamethoxazole-trimethoprim [Bactrim DS] 800-160 mg tablet 1 tab PO BID Qty: 10 0RF phenazopyridine [Pyridium] 200 mg tablet 200 mg PO TID PRN (Reason: pain) Qty: 6 0RF prednisone 20 mg tablet 40 mg PO DAILY Qty: 10 0RF albuterol sulfate 2.5 mg/0.5 mL solution for nebulization 5 mg inhalation Q6H PRN (Reason: shortness of breath or wheezing) Qty: 30 0RF acetaminophen 500 mg tablet 1,000 mg PO QID PRN (Reason: pain) Qty: 30 0RF ibuprofen 600 mg tablet 600 mg PO Q6H PRN (Reason: pain) Qty: 20 0RF cyclobenzaprine 5 mg tablet 5 mg PO TID PRN (Reason: muscle spasm) Qty: 14 0RF
[2024-07-14 15:36] LABS: Hematocrit 40.4 % (37.0-47.0); Hemoglobin 13.2 g/dl (12.0-16.0); Mean Corpuscular HGB Conc 32.7 g/dl (31.0-35.0); Mean Corpuscular Hemoglobin 29.6 pg (27.0-33.0); Mean Corpuscular Volume 90.6 fL (80.0-98.0); Mean Platelet Volume 11.6 fL (9.4-12.3); Platelet Count 260 X10*3/uL (160-400); Red Blood Count 4.46 X10*6/uL (4.20-5.50); Red Cell Distribution Width 13.4 % (11.0-16.0); WBC ABN SCTR FOR CBC 1
[2024-07-14 15:37] LABS: White Blood Count 8.8 X10*3/uL (4.8-10.8)
[2024-07-14 15:42] LABS: Prothrombin Time 11.4 SEC (10.9-12.4)
[2024-07-14 15:52] LABS: Appearance Urine Cloudy; Color Urine Yellow; Glucose Urine UA Negative (Negative); Leukocyte Esterase Urine Trace (Negative); Nitrite Urine Negative (Negative); Specific Gravity - Urine 1.015 (1.005-1.025); UMIC TRIGGER UACC YES; Urine Blood Negative (Negative); Urine Ketones Negative (Negative); Urine Protein Negative (Neg-Trace)
--- OUTSIDE RECORDS SUMMARY | 2024-07-14 15:54 | XMS_ITS | Continuity of Care Document ---
Author Organization [facility] Address [address] [place] [address] Phone Care Team Providers Care Commercial Loan Officer Name Role Phone Carlotta Mcghee CNP Unavailable Unavail able Allergies, Adverse Reactions, Alerts Substance Reaction Status Criticality No Known Allergies Active No Inform ation Medications Medication Instructions Dosage Effective Dates (start - stop) Status Comments ATORVASTATIN 20 MG TABLET TOME IAN TABLE TA [facility] - Active diclofenac 1 % topical [...] POTASSIUM 100 MG TAB TOME IAN TABLETA [facility] - Active HYDROCHLOROTHIAZIDE 12.5 MG CP TOME IAN [facility] - Active lidocaine 5 % topical patch [...] Diagnoses Date Provider Providers Copied on Encounter [facility], [address] [place] [address] 2,[address], [place], [place], [id number], tel:[phone] [facility] No Information 3 Hailey Laguerre. [address] [place], [place], [id number], [place]. tel:[phone] OFFICE/OUTPA TIENT VISIT, EST [facility], [address], [place], [place], [id number], [place] tel:[phone] [facility] paperwork request (chief complaint) Housing lack 1 Hailey Laguerre. [address] [place], [place], [id number], [place]. tel:[phone] [facility], [address], [place], [place], [id number], [place] tel:[phone] [facility] No Information 1 Hailey Laguerre. [address], [place], [id number], [place]. tel:[phone] OFFICE/OUTPA TIENT VISIT, EST [facility], [address], [place], [place], [id number], [place] tel:[phone] [facility] knee pain (chief complaint) Right knee pain, unspecified chronicity 1 Hailey Laguerre. [address], [place], [id number], [place]. tel:[phone] [facility], [address], [place], [place], [id number], [place] tel:[phone] [facility] Knee pain. (chief complaint) Proc/trtmt not crd out d/t pt lv bef seen by [facility] prov 1 Hailey Laguerre. [address], [place], [id number], [place]. tel:[phone] OFFICE/OUTPA TIENT VISIT, [facility], [address], [place], [place], [id number], [place] tel:[phone] [facility] covid vax (chief complaint) Encounter for immunization 1 No Information [facility], [address], [place], [place], [id number], [place] tel:[phone] [facility] Right knee pain, unspecified chronicity 1 El Myers. [address] [place], [place], [id number]. tel:[phone] OFFICE/OUTPA TIENT VISIT, [facility], [address], [place], [place], [id number], [place] tel:[phone] [facility] covid vax (chief complaint) Encounter for immunization 1 No Information OFFICE/OUTPA TIENT VISIT, [facility], [address], [place], [place], [id number], [place] tel:[phone] [facility] right knee pain and left elbow pain (chief complaint)cou gh (chief complaint) Right knee pain, unspecified chronicityLe ft elbow painCough 1 El Myers. [address] [place], [place], [id number]. 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 [address] [place], [place], [id number], [place]. tel:[phone] [facility], [address], [place], [place], [id number], [place] tel:[phone] [facility] No Information 1 Hailey Laguerre. [address], [place], [id number], [place]. tel:[phone] [facility], [address], [place], [place], [id number], [place] tel:[phone] [facility] Acute right-sided thoracic back pain 1 Alberto Smith. [address] [place], [place], [id number]. tel:[phone] OFFICE/OUTPA TIENT VISIT, EST [facility], [address], [place], [place], [id number], [place] tel:[phone] [facility] back pain. (chief complaint) Acute right-sided thoracic back painRib pain on right side 1 Boy Fraga. [address] [place], [place], [id number]. tel:[phone] [facility], [address], [place], [place], [id number], [place] tel:[phone] [facility] COVID TEST (chief complaint) Close exposure to 2019 novel coronavirus 1 No Information [facility], [address], [place], [place], [id number], [place] tel:[phone] [facility] Essential hypertension Prediabetes 1 No Information OFFICE/OUTPA TIENT VISIT, EST [facility], [address], [place], [place], [id number], [place] tel:[phone] [facility] abdominal pain (chief complaint) Right sided abdominal pain 1 Hailey Laguerre. [address] [place], [place], [id number], [place]. tel:[phone] [facility], [address], [place], [place], [id number], [place] tel:[phone] [facility] BP check (chief complaint) Proc/trtmt not crd out d/t pt lv bef seen by [facility] care prov 1 Hailey Laguerre. [address] [place], [place], [id number], [place]. tel:[phone] [facility], [address], [place], [place], [id number], [place] tel:[phone] [facility] Essential hypertension Prediabetes 1 No Information Referring Provider: Carlotta Lara, [address] [place], [address] . tel:[phone] OFFICE/OUTPA TIENT VISIT, EST [facility], [address], [place], [place], [id number], [place] tel:[phone] [facility] hypertension (chief complaint)chr onic back pain (chief complaint) Chronic left-sided low back pain with left-sided sciaticaEsse ntial hypertension Fungal infection 1 Hailey Laguerre. [address] [place], [place], [id number], [place]. tel:[phone] OFFICE/OUTPA TIENT VISIT, EST [facility], [address] [facility] [address], [place], [place], [id number], [place] tel:[phone] [facility] bp check (chief complaint) Essential hypertension 1 Hailey Laguerre. [address] [place], [place], [id number], [place]. tel:[phone] [facility], [address], [place], [place], [id number], [place] tel:[phone] [facility] covid test (chief complaint) Close exposure to 2019 novel coronavirus 1 No Information OFFICE/OUTPA TIENT VISIT, EST [facility], [address], [place], [place], [id number], [place] tel:[phone] [facility] BP check (chief complaint)COV ID inquiry (chief complaint) Essential hypertension Cough 1 Hailey Laguerre. [address] [place], [place], [id number], [place]. 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 [address] [place], [place], [id number], [place]. tel:[phone] Optometry OFFICE/OUTPA TIENT VISIT, EST [facility], [address] [facility] [address], [place], [place], [id number], [place] tel:[phone] [facility] OCT Follow up (chief complaint) Suspicious optic nerve cupping of both eyes Nov-0 4-202 0 Nicole Espino. [address], [place], [id number]. tel:[phone] [facility], [address], [id number], [place] tel:[phone] [facility] No Information Oct-2 3-202 0 No Information [facility], [address], [place], [place], [id number], [place] tel:[phone] [facility] Encounter for dental exam and cleaning w/o abnormal findings Oct-2 1- 0 No Information [facility], [address] [place], [place] [address] [address] [place] [address], [id number], [place] tel:[phone] [facility] No Information Oct-0 7-202 0 No Information [facility], [address], [id number], [place] tel:[phone] [facility] broken glasses and blurry vision (chief complaint) Hyperopia with presbyopia of both eyesSuspicio us optic nerve cupping of both eyesEncounte r for examination of eyes and vision with abnormal findings Oct-0 7-202 0 Naomy Peters. [address], [place], [id number], [place]. tel:[phone] [facility], [address], [id number], [place] tel:[phone] [facility] Encounter for dental exam and cleaning w/o abnormal findings Oct-0 6-202 0 Ozzy Moreno. [address] [place], [place], [id number], [place]. tel:[phone] [facility], [address], [id number], [place] tel:[phone] [facility] Encounter for dental exam and cleaning w/o abnormal findings Mar-0 - 0 No Information [facility], [address] [facility] [address], [place], [place], [id number], tel:[phone] [facility] chronic conditions (chief complaint) Proc/trtmt not crd out d/t pt lv bef seen by [facility] care prov Feb- 0 Hailey Laguerre. [address] [place], [place], [id number], . tel:[phone] OFFICE/OUTPA TIENT VISIT, [facility]ace [facility], [address] 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 [address] [place], [place], [id number], . tel:[phone] Family History Family Member Type Diagnosis Age [...] Record Payers Payer name Insurance type Covered democrat ID Authoriza tion(s) [facility] C3 ACO [id number] [facility] C3 ACO [id number] [facility] C3 O [id number] Social History Type Description Quantity Date Captured [...] meets criteria of cohort currently sanctioned by [facility]. Contraindications and risk factors assessed. Patient's questions answered. covid vax Patient presents in [place] for COVID vaccine. Patient meets criteria of cohort currently sanctioned by [facility]. Contraindications and risk factors assessed. Patient's [...] U C w/concern about back pain. 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 [...] had X ray in the past in [place] Now that she is working she is getting the pain at the lower back She was advised to reach out to PCP Denies any inconteinue bp check Last visit we in crease her HCTZ from 12.5 to 25 mg, continue her Losartan 100 mg since BP was not at goal -145/8627th- 148/78 - 142/68 ++- 135/72 ++30- 133/77 ++31st - 140/78 +1nd- [...] ADL. BP check Last visit in [facility], patient BP not at goal since she did not have any medicine. Rx resents and today we are checking on her BPCurrently takes HCTZ 12.5 mg and Losartant Not taking the atorvastin any more since she had a headahce and an episode of weakness. BP log 06/18- AM - 152/74 pulse 71 06/19- 9 15 AM 140/7201/16- 7 30 AM 147/68 17- 830 AM 140/71 18- 800 AM 143/65 06/23- 5AM 153/70 06/24- 830 AM 150/7501/21 750 AM 148/7301/22- 815 AM 142/6501/23- 801 AM 148/68 06/28- 745 AM 141/8101/25- today 152/87 hypertension It is currently getting worse. Risk factors include race, high salt intake, inactive lifestyle and obesity. Pertinent negatives include chest pain, dyspnea, fatigue and headache. Additional information: Has been without meds for a couple of week. She has a BP machine at home. 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 NICANOR 2.5 years ago in [place] and were given the glasses that are currently burning. Pt denies: flashes, floaters, burning, itching, and redness. 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 PMH: HTN, Asthma ( intermittent), Migraines, Circulatory issues, high cholesterolPSH: Gallbladder removal in 2016 in [place]. Medication hx - Losartan 100 mg once a day - but ? increase of the medication was planned. - chlorthalidone 25- atorvastatin - dosage unknown [place] ( for circulation- given in [place], but was damaging her kidneys so she [...]
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
--- OUTSIDE RECORDS SUMMARY | 2024-07-14 15:54 | XMS_ITS | Clinical Summary ---
Author Organization [employer] Address [address] [facility] [address] [place] [address] Care Team Providers Care Rn Managed Care Name Role Phone Unavailable Primary Care Provider Unavailabl e Immunizations Name Administration Dates Next Due Moderna Covid-19 Vaccine 12+ 01/18/2021,12/22/19 21 Moderna Covid-19 Vaccine 6+ Bivalent 07/14/2022 Pneumococcal Conjugate PCV 13 01/06/2022 Tdap 01/06/2022 Social History Tobacco Use Types Packs/Day Years Used Date Smoking Tobacco: Never Assessed Sex and Gender Information Value Date Recorded Sex Assigned at Male 07/14/2022 3:34 PM EST Legal Sex Male 3:30 PM EST Gender Identity Male 07/14/2022 3:34 PM EST Sexual Orientation Straight 07/14/2022 3: 34 PM EST Plan of Treatment Health Maintenance Due Date Last Done Comments CT Colonography 1974 Colonoscopy 1974 Colorectal Cancer Screening 1974 Depression Screening 1974 FIT DNA/Cologuard 1974 FIT 1974 FOBT 1974 Lipid Panel 1974 Sigmoidoscopy 1974 Alcohol/Substance Use Screening 1986 Tobacco Screening 1986 Family Planning (PISQ) 1989 Hepatitis B Vaccines (1 of 3 - 19+ 3-dose series) 1993 COVID-19 Vaccine (4 - 2023-2 5 season) 2024 07/14/2022, 01/18/2021, 12/21/2020 Influenza Vaccine (#1) 2024 Zoster Vaccines (1 of 2) 2024 DTaP/Tdap/Td Vaccines (2 - T d or Tdap) 01/07/2032 01/06/2022 RSV Patients and Patients Aged 60 years or older (1 - 1-dose 75+ series) 2049 Pneumococcal Vaccine: Pediatrics (0 to 5 Years) and At-Risk Patients (6 to 49) Years) Aged Out 01/06/2022 No longer eligible b ased on patient's age to complete this topic HIB Vaccines Aged Out No longer eligi ble based on patient's age to complete this topic HPV Vaccines Aged Out No longer eligi ble based on patient's age to complete this topic Hepatitis A Vaccines Aged Out No long er eligible based on patient's age to complete this topic IPV Vaccines Aged Out No longer eligi ble based on patient's age to complete this topic Meningococcal Vaccine Aged Out No cheryl alisha eligible based on patient's age to complete this topic RSV under 20 months Aged Out No longe r eligible based on patient's age to complete this topic Rotavirus Vaccines Aged Out No longer eligible based on patient's age to complete this topic
--- OUTSIDE RECORDS SUMMARY | 2024-07-14 15:54 | XMS_ITS ---
Author Organization [facility] Address [address] [place] [address] Care Team Providers Care Pillar Man Name Role Phone Sarah Tobias NP Primary Care Provider [phone] Asthma Program Status:Enrolled (Active) Start date:05/31/2022 Enrollment date:05/31/2022 Case Team Name Relationship Phone Demond Rodriguez PharmD (Responsible Staff) [phone] Continued Care and Services Coordination
--- OUTSIDE RECORDS SUMMARY | 2024-07-14 15:54 | XMS_ITS | Clinical Summary ---
Author Organization [facility] ity Address [address] [place] [address] Care Team Providers Care Tape Duplicator Name Role Phone Sarah Tobias Primary Care Provider [phone] Medical History Medical History Date Comments HTN (hypertension) DX:HTN (hyper tension) Morbid obesity (CMS/HCC) DX:Morb id obesity (HCC) Osteoarthritis DX:Osteoarthriti s Chronic migraine without aur a with status migrainosus, not intractable DX:Chronic migraine witho ut aura with status migrainosus, not intractable Intramural leiomyoma of uterus D X:Intramural leiomyoma of uterus HSV-2 (herpes simplex virus 2) infection DX:HSV-2 (herpes simplex virus 2) infection Moderate persistent asthma w ithout complication DX:Moderate persistent asthm a without complication Social History Tobacco Use Types Packs/Day Years Used Date Smoking Tobacco: Every Day Smokeless Tobacco: Never Alcohol Use Standard Drinks/Week Comments Not Currently 0 (1 standard drink = 0.6 oz pur e alcohol) Comments Unknown Sex and Gender Information Value Date Recorded Sex Assigned at Not on file Legal Sex Female 11:07 AM EST Gender Identity Not on file Sexual Orientation Not on file Obstetrics History Last Filed Vital Signs Vital Sign Reading Time Taken Comments Blood Pressure 170/80 04/13/2023 8:15 AM EST Pulse 62 04/13/2023 8:15 AM EST Temperature - - Respiratory Rate - - Oxygen Saturation - - Inhaled Oxygen Concentration - - Weight 132 kg (292 lb) 08/28/2023 7:59 AM EDT Height 165.1 cm (5' 5 ) 08/28/2023 7:59 AM EDT Body Mass Index 48.59 08/28/2023 7:59 AM EDT Plan of Treatment Health Maintenance Due Date Last Done Comments Breast Cancer Screening 1974 Hepatitis B Vaccines (1 of 3 - 19+ 3-dose series) 1993 Cervical Cancer Screening: Pap Smear 10/08/1995 Colorectal Cancer Screening: Colonoscopy 05/03/2022 HIV Screening 05/03/2022 Social Influencers of Health Screening 05/03/2022 COVID-19 Vaccine ( season) 2024 07/14/2022, 01/18/2021, 12/21/2020 Hypertension/CHF/CAD Annual BMP Blood Test 12/13/2024 12/14/2023 Depression Screening 05/07/2025 05/07/2024 Cholesterol Screening (Lipid Panel) 06/12/2029 06/12/2024, 06/12/2024, 01/17/2023, Additional history exists DTaP,Tdap,and Td Vaccines (2 - Td or Tdap) 01/07/2032 01/06/2022 Pneumococcal Vaccine: Pediatrics (0 to 5 Years) and At-Risk Patients (6 to 64 Years) (3 of 3 - PPSV23 or PCV20) 10/08/2039 01/17/2023, 01/06/2022 Hepatitis C Screening Completed 01/17/2023 Influenza Vaccine Completed 06/27/2024, 02/16/2023 HIB Vaccines Aged Out No longer eligi [...] on patient's age to complete this topic MMR Vaccines Aged Out No longer eligi ble based on patient's age to complete this topic Meningococcal ACWY Vaccine Aged Out N o longer eligible based on patient's age to complete this topic RSV Immunization Patients Under 20 months Aged Out No longer eligible based on patient's age to complete this topic Varicella Vaccines Aged Out No longer eligible based on patient's age to complete this topic Care Teams Tape Duplicator Relationship Specialty Start Date End Date Sarah Tobias PCP - General 05/20/22
--- OUTSIDE RECORDS SUMMARY | 2024-07-14 15:54 | XMS_ITS | Encounter Summary ---
Author Organization [facility] Address [address] [place] [address] Care Team Providers Care Developmental Services Worker Name Role Phone Sarah Tobias NP Primary Care Provider [phone] Reason for Referral * Plastic Surgery (STAT) - Pending Review Specialty Diagnoses / Procedures Referred By Miriam t Referred To Contact Diagnoses Macromastia Sarah Tobias NP [address] [place] [address] Phone: tel: fax: Surgery, [address] [place] [address] Phone: tel: fax: Referral ID Status Reason Start Date Expiration Date Visits Requested Visits Authorized [id number] Pending Review Specialty Services Required 06/28/2024 06/28/2025 1 1 Comments Want reduction breast * Physical Therapy (Routine) - Pending Review Specialty Diagnoses / Procedures Referred By Contac t Referred To Contact Diagnoses Bilateral leg pain Sarah Tobias NP [address] [place] [address] Phone: tel: fax: [place], [facility] [address] [facility] [address] [facility] [address] [place], [place] Phone: tel: fax: Referral ID Status Reason Start Date Expiration Date Visits Requested Visits Authorized [id number] Pending Review Specialty Services Required 06/28/2024 06/28/2025 1 1 Comments Bilateral leg pain * Orthopedics (Routine) - Pending Review Specialty Diagnoses / Procedures Referred By Miriam shaw Referred To Contact Diagnoses Osteoarthritis of back Sarah Tobias NP [address] [place] [address] Phone: tel: fax: OTHER Referral ID Status Reason Start Date Expiration Date Visits Requested Visits Authorized [id number] Pending Review Specialty Services Required 06/28/2024 06/28/2025 1 1 Reason for Visit * Reason Comments Arthritis Encounter Details Date Type Department Care Team (Late st Contact Info) Description 06/28/2024 11:20 AM EST Office Visit [facility] [place] [phone] Sarah Tobias NP [address] [place] [address] Acute pain of left shoulder (Primary Dx); Fall, initial encounter; Osteoarthritis of back; Bilateral leg pain; Macromastia Social History Tobacco Use Types Packs/Day Years Used Date Smoking Tobacco: Former Cigarettes Passive Smoke Exposure: Never Smokeless Tobacco: Never Comments:Quit 4 days ago Alcohol Use Standard [...] 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[employer] Not on file Not on file Not on fi le documented as of this encounter Last Filed Vital Signs Vital Sign Reading Time Taken Comments Blood Pressure 149/90 06/28/2024 11:23 AM EST Pulse 74 06/28/2024 11:23 AM EST Temperature - - Respiratory Rate 20 06/28/2024 11:2 3 AM EST Oxygen Saturation - - Inhaled Oxygen Concentration - - Weight 138.2 kg (304 lb 9.6 oz) 025 11:23 AM EST Height - - Body Mass Index 50.69 06/27/2024 2:12 PM EST documented in this encounter Progress Notes * Sarah Tobias NP - 06/28/2024 11:23 AM EST Subjective: CC: Arthritis Observer Electrical Prospecting: None, provider speaks patient's familiar language HPI: Aristides Sun is a 48 year old female patient who presents to the office today for arthritis. Fells 2 weeks ago. Seen with nishant yesterday and hydralazine increased from 10 mg to 25 mg TID for enhanced BP control. Experiencing joint pain, particularly in the knees and back, which worsens when lying down. Reportsnumbness and cramps in the feet, requiring 15 to 20 minutes before being able to walk after sitting. Has arthritis and takes naproxen and cyclobenzaprine for pain management. Recently had a change inblood pressure medication. Currently taking trazodone. Engaged in weight loss efforts, including going to the gym and eating steamed foods, resulting in a 3-pound weight loss. Has machines at home toassist with exercise when unable to go out. Awaiting a breast reduction surgery, which is believed to be affecting back pain. Recently had a mammogram on June 18, 2024, and received the results by mail. Health Maintenance Vaccine: see below Lifestyle measures:BMI follow up plan: The patient was counseled regarding nutrition and physical activity counseling provided. CVD risk: The 10-year ASCVD risk score (Lyn MARRERO, et al., 2019) is: 2% Tobacco Intervention:provided smoking cessation counseling Depression screen: DEPRESSION FU PROVIDED ([facility]-2): Counseling / education in visit and Assessed,follow-up as needed PHQ-9 Total Score (Auto Calculated) 0 at 05/07/2024 9:40 AM 05/07/2024 9:40 AM How many times in the past year have you had 4 or more drinks in a day? NONE How many times in the past year have you used a recreational drug or used a prescription medicationfor nonmedical reasons? NONE Did patient decline PHQ screening? No Little interest or pleasure in doing things Not at all Feeling down, depressed or hopeless [include irritable if under 18] Not at all PHQ2 Score 0 Little interest or pleasure in doing things Not at all Feeling down, depressed or hopeless [include irritable if under 18] Not at all Trouble falling or staying asleep, or sleeping too much Not at all Feeling tired or having little energy Not at all Poor appetite or overeating Not at all Feeling bad about yourself - or that you are a failure or have let yourself or your family down Notat all Trouble concentrating on things like school work, reading or watching TV? Not at all Moving or speaking so slowly that other people could have noticed? Or the opposite - being so fidgety or restless that you have been moving around a lot more than usual Not at all Thoughts you would be better off or of hurting yourself in some way Not at all If you checked off any problems, how difficult have these problems made it for you to do your work,take care of things at home, or get along with other people? Not difficult at all PHQ-9 Total Score (Auto Calculated) 0 Depression Severity: None-minimal ROS Review of Systems Remainder ROS: See HPI, systems reviewed and are otherwise negative or noncontributory. Past Medical Hx No Known Allergies Patient Active Problem List Diagnosis ??? Hypertension ??? Osteoarthritis of back ??? Morbid obesity ([facility]) ??? Chronic migraine without aura without status migrainosus, not intractable ??? Intramural leiomyoma of uterus ??? HSV-2 (herpes simplex virus 2) infection ??? Macromastia ??? Moderate persistent asthma without complication ??? Cardiomegaly ??? Prediabetes ??? 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 ([facility]) ??? Generalized anxiety disorder ??? Complicated grief ??? Class 3 severe obesity due to excess calories without serious comorbidity with body mass index (BMI) of 45.0 to 49.9 in adult ([facility]) Current Outpatient Medications on File Prior to Visit Medication Sig Dispense Refill ??? traZODone (DESYREL) 50 mg tablet TAKE 1/2 TABLET BY MOUTH NIGHTLY AT BEDTIME FOR 180 DAYS ??? hydrALAZINE (APRESOLINE) 25 mg tablet Take 1 Tablet by mouth 3 (three) times daily 270 Tablet 1 ??? ARIPiprazole (ABILIFY) 2 mg tablet Take 1 Tablet by mouth once daily for 180 days 90 Tablet 1 ??? cyclobenzaprine (FLEXERIL) 10 mg tablet Take 1 Tablet by mouth 3 (three) times daily as needed for muscle spasms 30 Tablet 0 ??? diclofenac sodium (VOLTAREN) 1 % gel Apply topically 2 (two) times daily as needed for pain 100g 2 ??? lidocaine (LIDODERM) 5 % patch Place 1 Patch onto the skin once daily (every 24 hours) 30 Patch2 ??? amLODIPine (NORVASC) 10 mg tablet TOME IAN TABLETA TODOS LOS CAO 90 Tablet 1 ??? fluticasone propion-salmeteroL (ADVAIR) 250-50 mcg/dose diskus inhaler Inhale 1 Puff into the lungs 2 (two) times daily 60 Each 2 ??? losartan-hydrochlorothiazide (HYZAAR) 100-25 mg per tablet Take 1 Tablet by mouth once daily 90Tablet 1 ??? metoprolol succinate XL (TOPROL-XL) 50 mg 24 hr tablet Take 1 Tablet by mouth once daily 90 Tablet 1 ??? buPROPion XL (WELLBUTRIN XL) 150 mg 24 hr tablet Take 1 Tablet by mouth every morning for 180 days 90 Tablet 1 ??? melatonin 5 mg tab Take 1 Tablet by mouth nightly at bedtime for 180 days 90 Tablet 1 ??? montelukast (SINGULAIR) 10 mg tablet TOME 1 TABLETA POR VIA ORAL TODOS LOS COA AL ACOSTARSE 90Tablet 1 ??? PARoxetine (PAXIL) 30 mg tablet Take 1 Tablet by mouth nightly at bedtime for 180 days 90 Tablet 1 ??? cetirizine (ZYRTEC) 10 mg tablet Take 1 Tablet by mouth once daily 90 Tablet 1 ??? diclofenac sodium (VOLTAREN) 1 % gel Apply topically 2 (two) times daily 100 g 3 ??? naproxen (NAPROSYN) 500 mg tablet Take 1 Tablet by mouth 2 (two) times daily with a meal 90 Tablet 1 ??? albuterol HFA 90 mcg/actuation inhaler Inhale 2 Puffs into the lungs every 4 to 6 (four to six)hours as needed for shortness of breath or wheezing 18 g 2 ??? blood pressure kit med and lrg Dispense one automated BP monitor, to be used daily and prn, length of need 99 years 1 Kit 0 No current facility-administered medications on file prior to visit. Objective: Vitals: 06/28/24 1123 BP: (!) 149/90 Pulse: 74 Resp: 20 Weight: (!) 304 lb 9.6 oz (138.2 kg) Body mass index is 50.69 kg/m??. Physical Exam Vitals reviewed. Constitutional: General: She is not in acute distress. Appearance: Normal appearance. She is obese. She is not ill-appearing. Cardiovascular: Rate and Rhythm: Normal rate and regular rhythm. Heart sounds: Normal heart sounds. No murmur heard. No friction rub. No gallop. Pulmonary: Effort: Pulmonary effort is normal. No respiratory distress. Breath sounds: Normal breath sounds. No wheezing. Musculoskeletal: General: Tenderness and signs of injury present. No swelling or deformity. Comments: ROM limited, no ecchymosis . tenderness Skin: Capillary Refill: Capillary refill takes less than 2 seconds. Neurological: Mental Status: She is alert and oriented to person, place, and time. Psychiatric: Mood and Affect: Mood normal. Behavior: Behavior normal. Thought Content: Thought content normal. Judgment: Judgment normal. Assessment and Plan: Aristides Sun is a 48 year old female patient who was seen today for evaluation of Arthritis W19.XXXA Fall, initial encounter (primary encounter diagnosis) Plan : ??? X-RAY SHOULDER, COMPLETE, MIN 2 VIEWS, LEFT M25.512 Acute pain of left shoulder Plan : ??? X-RAY SHOULDER, COMPLETE, MIN 2 VIEWS, LEFT M47.9 Osteoarthritis of back Plan : ??? REFERRAL TO ORTHOPEDICS M79.604,M79.605 Bilateral leg pain Plan : ??? REFERRAL TO PHYSICAL THERAPY N62 Macromastia Plan : ??? REFERRAL TO PLASTIC SURGERY Follow Up: Return for CPE. Assessment and plan discussed with patient. Patient agrees with plan. Questions answered. documented in this encounter Miscellaneous Notes * Result Encounter Note - Sarah Tobias NP - 07/04/2024 11:51 AM EST Xray normal * Patient Instructions - Sarah Tobias NP - 06/28/2024 11:29 AM EST If you are not able to keep your appointment please call 24-48 hours before your appointment to cancel or reschedule. documented in this encounter Plan of Treatment Upcoming Encounters Date Type Department Care Team (Late st Contact Info) Description 08/02/2024 11:00 AM EST / Visits [facility] [address] [place] [phone] Sandra Smith [address] [place] [address] Charity Heredia, PMHNP [address] [place] [address] 08/06/2024 2:00 PM EST Office Visit [facility] [address] [place] [phone] Nishant Smith, PharmD [address] [place] [address] 08/20/2024 2:20 PM EDT Office Visit [facility] [address] [place] [address] Bam Ramirez PA-C [address] [place] [address] Scheduled Referrals Name Type Priority Associated Diagnoses Orde r Schedule REFERRAL TO ORTHOPEDICS Referral Routine Osteoarthritis of back Ordered: 06/28/2024 REFERRAL TO PHYSICAL THERAPY Referral Routine Bilateral leg pain Ordered: 06/28/2024 REFERRAL TO PLASTIC SURGERY Referral Routine Macromastia Ordered: 06/28/2024 documented as of this encounter Procedures Procedure Name Priority Date/Time Associated Diagnosis Comments X-RAY SHOULDER, COMPLETE, MIN 2 VIEWS, LEFT Routine 07/01/2024 3:00 AM EST Fall, initial encounter Acute pain of left shoulder documented in this encounter Results * X-RAY SHOULDER, COMPLETE, MIN 2 VIEWS, LEFT (07/01/2024 3:00 AM EST) 07/01/2024 3:00 AM EST Sarah Tobias NP IMG XRAY Final Result documented in this encounter Visit Diagnoses Diagnosis Acute pain of left shoulder- Primary Fall, initial encounter Osteoarthritis of back Spondylosis of unspecified site without mention of myelopathy Bilateral leg pain Pain in limb Macromastia Hypertrophy of breast documented in this encounter Additional Health Concerns Assessment Noted Time PHQ-9 Depression Total Score: 0 05/07/20 24 9:40 AM PST documented as of this encounter Care Teams Developmental Services Worker Relationship Specialty Start Date End Date Sarah Tobias NP [address] [place] [address] PCP - General Internal Medicine 04/11/22 documented as of this encounter
[2024-07-14 15:57] LABS: Alanine Aminotransferase 36 U/L (0-31); Albumin Level 3.8 g/dL (3.5-5.0); Anion Gap 11 (12-20); Aspartate Amino Transferase 28 U/L (5-31); B Type Natriuretic Peptide 82 pg/mL (<100); Bacteria Urine 4+ (None Seen); Bilirubin Total 0.6 mg/dL (0.0-1.0); Blood Urea Nitrogen 10 mg/dL (9-16); Calcium 8.5 mg/dL (8.4-10.2); Carbon Dioxide 24 mmol/L (22-29); Chloride 111 mmol/L (96-108); Creatinine Clr Calc Pharmacy 109.1; Estimated Glomerular Filt Rate > 60; Glucose Random 104 mg/dL (60-115); Hyaline Casts Urine 0-2 /LPF (0-2); Lipase 30 U/L (8-78); Potassium 3.6 mmol/L (3.3-5.1); RBC Urine 0-2 /HPF (0-2); Sodium 142 mmol/L (135-145); UACC Culture Trigger YES
[2024-07-14 16:02] LABS: Troponin-I High Sensitivity < 2.7 ng/L (<3.5-17.0)
[2024-07-14 16:14] LABS: Alkaline Phosphatase 54 U/L (39-117)
[2024-07-14 16:29] LABS: Influenza A PCR NEGATIVE (Negative); Influenza B PCR NEGATIVE (Negative); Resp Syncy Virus RNA Qual PCR NEGATIVE (Negative); SARS COV2 PCR INHOUSE NEGATIVE (Negative)
[2024-07-14 16:58] LABS: Atypical Lymph Absolute Manual 0.7 x10*3/uL; Atypical Lymphs Percent Manual 8 % (0-6); Band Neutrophils Percent 1 % (3-5); Eosinophils Absolute Manual 0.3 X10*3/uL (0.0-0.4); Eosinophils Percent Manual 3 % (0-4); Lymphocytes Absolute Manual 1.9 X10*3/uL (1.2-4.9); Lymphocytes Percent Manual 22 % (20-40); Monocytes Percent Manual 11 % (2-11); Neutrophils Absolute Manual 4.9 X10*3/uL (2.0-8.3); Neutrophils Percent Manual 55 % (45-73)
[2024-07-14 16:59] LABS: Basophilic Stippling 1+ (0-2) /OIF; RBC Morphology NOTED
[2024-07-14 17:00] LABS: Large Platelet PRESENT; Platelet Estimate NORMAL (NORMAL); Platelet Morphology Comment NOTED; Schistocytes 1+ (0-2) /OIF
[2024-07-14 18:05] LABS: Troponin-I High Sensitivity < 2.7 ng/L (<3.5-17.0)
== END 2024-07-14 19:13 | disposition left against medical advice (07) ==
PROVIDERS: Nurse Practitioner Family; Emergency Provider Emergency Medicine
DX: R07.89 Other chest pain (principal); R06.02 Shortness of breath; R94.31 Abnormal electrocardiogram [ECG] [EKG]; R42 Dizziness and giddiness; Z03.818 Encounter for observation for suspected exposure to other biological agents ruled out; Z79.899 Other long term (current) drug therapy
CPT/HCPCS: 0241U; 36415; 71046; 80053; 81001; 83690; 83735; 83880; 84484; 85007; 85027; 85610; 87086; 93005; 99283

== ENCOUNTER → 2024-07-14 14:27 | Outpatient (BNV) | payer MEDICAID, SELFPAY | PROVIDERS: Emergency Provider Emergency Medicine; Visit Provider Internal Medicine Cardiovascular Disease | DX: R07.9 Chest pain, unspecified (principal); R94.31 Abnormal electrocardiogram [ECG] [EKG] | CPT/HCPCS: 93010 ==

== ENCOUNTER → 2024-07-14 14:38 | Outpatient (BNV) | payer MEDICAID, SELFPAY | PROVIDERS: Visit Provider Radiology Diagnostic Radiology | DX: R07.9 Chest pain, unspecified (principal); R06.02 Shortness of breath | CPT/HCPCS: 71046 ==

== ENCOUNTER 2024-09-14 11:36 | Emergency (ER) | payer MEDICAID, SELFPAY ==
--- NOTE | ~2024-09-14 | US_ITS ---
CLINICAL HISTORY: Free fluid seen on CT. Abdominal pain, N V D US PELVIS TRANSABDOMINAL AND TRANSVAGINAL WITH DOPPLER LIMITED Comparison: CT/SR - CT ABDOMEN PELVIS W IV CON - 09/14/24 13:13 EDT Findings: Transabdominal scanning performed for overall anatomy. Transvaginal scanning performed for additional detail. Anteverted uterus measures 7.6 cm in length. Intramural fibroid is identified in the left side of the uterus measuring 2.1 x 1.8 x 1.8 cm. Intramural fibroid is identified in the fundus measuring 2.2 x 1.5 x 2.7 cm. The endometrium measures 5.2 mm. There are multiple small nabothian cysts in the cervix. The right ovary measures 2.1 x 2.2 x 2.1 cm. There is a small amount of adjacent free fluid. The left ovary is not well-visualized most likely due to its position in the pelvis. CT appearance is unremarkable. Normal color Doppler of the right ovary. IMPRESSION: 1. Normal size right ovary. There is color Doppler flow. 2. Small amount of free fluid in the right adnexa may be physiologic in etiology or related to a sonographically occult involuted or ruptured right ovarian cyst. 3. Nonvisualization of the left ovary which was grossly unremarkable on earlier CT. 4. Fibroid uterus. This document has been electronically signed by: Deepali Navas DO on 09/14/2024 16:15:59
--- NOTE | ~2024-09-14 | CT_ITS ---
CLINICAL HISTORY: Periumbilical abdominal pain, N V D CT ABDOMEN AND PELVIS WITH CONTRAST Comparison: None Findings: No basilar consolidation or pleural effusion. There are no acute abnormalities in the solid organs. No urolithiasis. No AAA. The gallbladder is surgically absent. There is no significant biliary ductal dilatation. No bowel obstruction, pneumoperitoneum, or pneumatosis. No significant mesenteric or paracolic edema. Mild sigmoid diverticulosis. The appendix is identified. No acute appendicitis. CT appearance of the uterus and ovaries unremarkable. There is a small amount of free fluid in the right adnexal region. There is wall thickening in the urinary bladder which is incompletely distended. The bones are intact. IMPRESSION: 1. No acute appendicitis or other acute inflammatory bowel process. Mild diverticulosis coli. 2. No acute obstructive uropathy, acute pyelonephritis or urolithiasis. 3. Wall thickening in the urinary bladder most likely due to underdistention. In the appropriate clinical setting, cystitis is included in the differential. 4. Small amount of free fluid in the right adnexal region. Further evaluation with ultrasound is suggested if clinically indicated. This document has been electronically signed by: Deepali Navas DO on 09/14/2024 15:07:08
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
[2024-09-14 11:39] VITALS: BP 153/61; PULSE 61; RESP 18; TEMP 36.1; O2SAT 98; BMI 51.6
--- NOTE | 2024-09-14 11:39 | ED.GENADULT ---
HPI - General Adult General Chief complaint: Abdominal Pain Stated complaint: Asthma syptoms, high blood pressure Time Seen by Provider: 09/14/24 11:57 Source: patient, RN notes reviewed and old records reviewed Mode of arrival: ambulatory History of Present Illness ED Provider: Coby Laws PA-C HPI narrative: 48-year-old Palauan-speaking female with a past medical history of asthma presenting to the ED complaining of nausea, vomiting, diarrhea, and periumbilical abdominal pain during BMs x few weeks. Also reports acute on chronic SOB and chest tightness beginning last week. Reports dry cough. Denies fever, chills, constipation, dysuria/hematuria, bloody stools, melena Related Data Previous Rx's ?Medication ?Instructions ?Recorded miconazole nitrate 2 % vaginal 1 appful vaginal BEDTIME 7 days 02/07/22 cream #45 grams nitrofurantoin 100 mg PO Q12H 5 days #10 caps 02/07/22 monohydrate/macrocrystals 100 mg capsule (Macrobid) albuterol sulfate 90 mcg/actuation 2 inh inhalation Q4-6H PRN 05/13/22 breath activated powder inhaler shortness of breath or wheezing #1 ea prednisone 20 mg tablet 40 mg (2 x 20 mg) PO DAILY 5 days 05/13/22 #10 tabs phenazopyridine 200 mg tablet 200 mg PO TID PRN pain 6 doses #6 09/07/22 (Pyridium) tabs sulfamethoxazole 800 1 tab PO BID #10 tabs 09/07/22 mg-trimethoprim 160 mg tablet (Bactrim DS) acetaminophen 500 mg tablet 1,000 mg (2 x 500 mg) PO QID PRN 08/27/23 pain #30 tabs cyclobenzaprine 5 mg tablet 5 mg PO TID PRN muscle spasm #14 08/27/23 tabs ibuprofen 600 mg tablet 600 mg PO Q6H PRN pain #20 tabs 08/27/23 albuterol sulfate 2.5 mg/0.5 mL 5 mg inhalation Q6H PRN shortness 01/29/24 solution for nebulization of breath or wheezing #30 ea prednisone 20 mg tablet 40 mg (2 x 20 mg) PO DAILY #10 tabs 01/29/24 nitrofurantoin 100 mg PO Q12H 7 days #14 caps 09/14/24 monohydrate/macrocrystals 100 mg capsule (Macrobid) Allergies Allergy/AdvReac Type Severity Reaction Status Date / Time No Known Allergies Allergy Verified 09/14/24 11:39 Review of Systems Review of Systems: Yes all other systems are reviewed and are negative Constitutional: Constitutional: Reports as per [facility] Past Medical History Attestation statement: The following information was validated with the patient. Source: old records reviewed Medical History Hypertension Social History Social History Unable to assess alcohol history related to: Unknown Patient Tobacco Use Status: Never used Tobacco Physical Exam ED Vital Signs: Vital Signs - 24 hr 09/14/24 11:39 09/14/24 12:28 09/14/24 12:45 Temperature 96.9 F Pulse Rate 61 112 H 69 Respiratory Rate 18 24 H 12 Blood Pressure 153/61 H 152/73 H Pulse Oximetry 98 100 Oxygen Delivery Method Room Air Room Air 09/14/24 15:55 09/14/24 17:14 Temperature 98 F 98 F Pulse Rate 63 63 Respiratory Rate 20 20 Blood Pressure 125/49 L 130/80 Pulse Oximetry 98 98 Oxygen Delivery Method Room Air Room Air BMI result Body Mass Index 51.6 Const General: cooperative, healthy appearing and no acute distress Orientation/consciousness: patient oriented x3 Limitations: no limitations HENMT Head: Yes normal to inspection and Yes atraumatic Ears: hearing grossly normal bilaterally General nose exam: Normal external nose present Face and sinus: Yes normal facial exam Eyes General: appearance normal, both eyes and all related structures EOM: EOMs intact bilaterally Neck Neck: Yes normal visual inspection and Yes no meningeal signs Resp Effort & Inspection: normal respiratory effort and no respiratory distress Auscultation: clear to auscultation bilaterally, no crackles, no rales, no rhonchi and no wheezes Cardio Rate: regular rate Heart sounds: S1 normal heart sound present and S2 normal heart sound present GI Inspection: Yes normal to inspection Palpation (GI): Soft to palpation, Tenderness to palpation present (GI) periumbilically; with no rebound tenderness, no guarding and not rigid General: Yes no CVA tenderness Back/Spine/Pelvis Back: no CVA tenderness Skin Rashes: no rashes Wounds: no wounds Neuro General: patient oriented x3, tone normal and no meningeal signs Cranial nerves: Yes CN's II-XII intact bilaterally Gait exam (Neuro): Normal gait present Extrem General: Yes normal to inspection Course Course Course Narrative: This is a rapid medical exam performed by Vidal Gonzalez NP: Additional HPI, ROS, PE not included below will be deferred to primary provider. 09/14/24 11:39 Patient is a 48-year-old [place]auan speaking female presenting with complaint of diarrhea and vomiting x 2 weeks. Saw PCP yesterday. Reports pain around umbilicus with bowel movements. Also complaining of emotional asthma when she's having vomiting. States PCP also requesting an EKG due to intermittent chest tightness Plan: labs, UA -CXR unremarkable -1509--no leukocytosis. Labs otherwise reassuring. Troponin negative. HCG negative -UA with leuk esterase, wbc's and bacteria CT abdomen pelvis w IV con IMPRESSION: 1. No acute appendicitis or other acute inflammatory bowel process. Mild diverticulosis coli. 2. No acute obstructive uropathy, acute pyelonephritis or urolithiasis. 3. Wall thickening in the urinary bladder most likely due to underdistention. In the appropriate clinical setting, cystitis is included in the differential. 4. Small amount of free fluid in the right adnexal region. Further evaluation with ultrasound is suggested if clinically indicated. > due to CT findings will treat for UTI with p.o. antibiotics. Will obtain pelvic ultrasound for further eval 1650-- US pelvic and transvaginal IMPRESSION: 1. Normal size right ovary. There is color Doppler flow. 2. Small amount of free fluid in the right adnexa may be physiologic in etiology or related to a sonographically occult involuted or ruptured right ovarian cyst. 3. Nonvisualization of the left ovary which was grossly unremarkable on earlier CT. 4. Fibroid uterus. 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 Recommended close PCP and waistline joiner lockstitch and GI follow-up. discussed worrisome signs and symptoms and strict return precautions, and when to return to the emergency department. They verbalized understanding and feel safe for discharge at this time. Medications Administered Discontinued Medications Generic Name Dose Route Start Last Admin Trade Name Freq PRN Reason Stop Dose Admin Albuterol Sulfate 2.5 mg/ 0 mg 09/14/24 12:28 09/14/24 12:33 Albuterol/Ipratropium 3 ml INHALE 09/14/24 12:29 5 dose ONCE ONE Administration Iohexol 100 ml 09/14/24 13:21 09/14/24 13:21 Iohexol 350 Mg/Ml 100 Ml Infus..Btl IV 09/14/24 13:22 100 ml ONCE ONE Administration Ketorolac Tromethamine 15 mg 09/14/24 12:12 09/14/24 12:36 Ketorolac Tromethamine 15 Mg/Ml Vial IVPUSH 09/14/24 12:13 15 mg ONCE ONE Administration Nitrofurantoin Macrocrystals 100 mg 09/14/24 16:55 09/14/24 17:13 Nitrofurantoin Monohyd/M-Cryst 100 Mg Capsule PO 09/14/24 16:56 100 mg ONCE ONE Administration Ondansetron HCl 4 mg 09/14/24 12:12 09/14/24 12:40 Ondansetron Hcl 4 Mg/2 Ml Vial IVPUSH 09/14/24 12:13 4 mg ONCE ONE Administration Medical Decision Making Medical Decision Making MDM Narrative: 48-year-old [place]an-speaking female with a past medical history of asthma presenting to the ED complaining of nausea, vomiting, diarrhea, and periumbilical abdominal pain during BMs x few weeks. Also reports acute on chronic SOB and chest tightness beginning last week. On exam mildly tachycardic, NAD, nontoxic appearing, lungs CTA, abdomen soft with mild periumbilical tenderness, no rebound or guarding, no CVAT. Concern for viral illness vs asthma vs pneumonia vs atypical ACS vs colitis vs diverticulitis/appendicitis. Lower suspicion for SBO, cholecystitis/lithiasis or pancreatitis 1233-low suspicion for severe sepsis Plan: EKG, labs, UA, CXR, CT AP, ED bronch protocol, re-evaluate Please refer to course for remaining clinical decision making, interpretation of labs/imaging results, and discussions with consultants and/or family members. Differential Diagnosis Differential Diagnoses: The differential diagnosis associated with the presentation includes As above Admission/Observation Consideration of admission/observation: Escalation of care including admission/observation considered Lab Data [facility] Lab Attestation statement: I reviewed the patient's lab results. 09/14/24 11:52 09/14/24 11:52 Labs: Lab Results 09/14/24 09/14/24 Range/Units 11:52 12:44 WBC 7.6 (4.8-10.8) X10*3/uL RBC 4.75 (4.20-5.50) X10*6/uL Hgb 13.7 (12.0-16.0) g/dl Hct 42.2 (37.0-47.0) % MCV 88.8 (80.0-98.0) fL MCH 28.8 (27.0-33.0) pg MCHC 32.5 (31.0-35.0) g/dl RDW 13.1 (11.0-16.0) % Plt Count 255 (160-400) X10*3/uL MPV 11.6 (9.4-12.3) fL Immature Gran % (Auto) 0.4 (0.0-0.4) % Neut % (Auto) 54.7 (45-73) % Lymph % (Auto) 32.5 (20-40) % [place] % (Auto) 8.6 (2-11) % Eos % (Auto) 3.4 (0-4) % Baso % (Auto) 0.4 (0-2) % Lymph # (Auto) 2.5 (1.2-4.9) X10*3/uL [place] # (Auto) 0.7 (0.1-1.2) X10*3/uL Eos # (Auto) 0.3 (0.0-0.4) X10*3/uL Baso # (Auto) 0.0 (0.0-0.2) X10*3/uL Abs Immat Gran (auto) 0.03 (0.00-0.03) X10*3/uL Absolute Neuts (auto) 4.1 (2.0-8.3) x10*3/uL Absolute Nucleated RBC 0.000 (0.0-0.012) X10*3/uL Nucleated RBC % (auto) 0.0 (0.0-0.2) /100WBC Sodium 142 (135-145) mmol/L Potassium 3.8 (3.3-5.1) mmol/L Chloride 109 H (96-108) mmol/L Carbon Dioxide 25 (22-29) mmol/L Anion Gap 12 (12-20) BUN 18 H (9-16) mg/dL Creatinine 0.89 (0.5-1.4) mg/dL Estim Creat Clear Calc 109.1 Estimated GFR > 60 Random Glucose 153 H (60-115) mg/dL Calcium 8.8 (8.4-10.2) mg/dL Magnesium 1.9 (1.6-2.6) mg/dL Total Bilirubin 0.5 (0.0-1.0) mg/dL AST 24 (5-31) U/L ALT 33 H (0-31) U/L Alkaline Phosphatase 73 (39-117) U/L Troponin I High Sens < 2.7 (<3.5-17.0) ng/L Total Protein 7.1 (6.5-8.0) g/dL Albumin 4.0 (3.5-5.0) g/dL Lipase 22 (8-78) U/L Beta HCG, Quant < 2 mIU/mL Urine Color Yellow Urine Appearance Cloudy Urine pH 5.0 (5.0-9.0) Ur Specific [place] >= 1.030 H (1.005-1.025) Urine Protein Trace (Neg-Trace) mg/dL Urine Glucose (UA) Negative (Negative) mg/dL Urine Ketones Trace (Negative) mg/dL Urine Blood Negative (Negative) Urine Nitrite Negative (Negative) Ur Leukocyte Esterase Small (1+) H (Negative) Urine RBC 0-2 (0-2) /HPF Urine WBC 6-10 (0-5) /HPF Ur Squamous Epith Cells 3-5 (0-2) /HPF Urine Bacteria 4+ (None Seen) Hyaline Casts 3-5 (0-2) /LPF Independent Interpretation I performed an independent interpretation of an: EKG, Plain X-Ray and CT Scan Radiology Impression Discussion of test interpretation with radiology: I have reviewed the radiologist's reading. External Record Review External record reviewed: Inpatient record, Office record, Outpatient record, Prior outpatient labs, Prior outpatient radiology, Primary care record and Outside ED record Tests considered The following testing was considered but not selected: As above Prescription Management I considered prescription management with: Pain Medication and Antibiotic Chronic Conditions Patient?s care impacted by: Other (Asthma, obesity) Social Determinants Patient?s care significantly limited by Social Determinants of Health including: Other Social Determinant of Health Discharge Plan Discharge Clinical Impression: UTI (urinary tract infection), Free fluid in pelvis, Fibroid uterus Patient Disposition: Home, Self-Care Instructions: Urinary Tract Infection in Women (DC) Additional Instructions: You have a urine infection. Macrobid as an antibiotic please take as prescribed until completion Your ultrasound shows some free fluid in your pelvis, this could be ovarian of normal or evidence of a ruptured cyst. Please follow-up with waistline joiner lockstitch You also have fibroids on your uterus Your blood work is otherwise reassuring Please have close follow up with her PCP If her symptoms persist or worsen you constant worsening abdominal pain, chest pain, shortness breath, nausea/vomiting or fever return to the ED Prescriptions: New nitrofurantoin monohyd/m-cryst [Macrobid] 100 mg capsule 100 mg PO Q12H 7 Days Qty: 14 0RF Rx Instructions: must administer with a meal/food No Action albuterol sulfate 90 mcg/actuation aerosol powdr breath activated 2 inh inhalation Q4-6H PRN (Reason: shortness of breath or wheezing) Qty: 1 0RF prednisone 20 mg tablet 40 mg PO DAILY 5 Days Qty: 10 0RF miconazole nitrate 2 % cream 1 appful vaginal BEDTIME 7 Days Qty: 45 0RF nitrofurantoin monohyd/m-cryst [Macrobid] 100 mg capsule 100 mg PO Q12H 5 Days Qty: 10 0RF Rx Instructions: must administer with a meal/food sulfamethoxazole-trimethoprim [Bactrim DS] 800-160 mg tablet 1 tab PO BID Qty: 10 0RF phenazopyridine [Pyridium] 200 mg tablet 200 mg PO TID PRN (Reason: pain) Qty: 6 0RF prednisone 20 mg tablet 40 mg PO DAILY Qty: 10 0RF albuterol sulfate 2.5 mg/0.5 mL solution for nebulization 5 mg inhalation Q6H PRN (Reason: shortness of breath or wheezing) Qty: 30 0RF acetaminophen 500 mg tablet 1,000 mg PO QID PRN (Reason: pain) Qty: 30 0RF ibuprofen 600 mg tablet 600 mg PO Q6H PRN (Reason: pain) Qty: 20 0RF cyclobenzaprine 5 mg tablet 5 mg PO TID PRN (Reason: muscle spasm) Qty: 14 0RF Ref[place] [facility] [place] Group[place] - 1 week [facility] [place]Provider Group] - 1 week Sarah Solano NP [Primary Care Provider] - 3 days Interventions: ED Discharge Assessment Last Done: 09/14/24 17:14 Discharge Date/Time: 09/14/24 17:14 Print Language: Palauan
--- NOTE | 2024-09-14 11:48 | ECG_ITS ---
Test Reason : chest pain Blood Pressure : */* mmHG Vent. Rate : 65 BPM Atrial Rate : 65 BPM P-R Int : 180 ms QRS Dur : 84 ms QT Int : 384 ms P-R-T Axes : 40 -31 -10 degrees QTcB Int : 399 ms Normal sinus rhythm Left axis deviation Moderate voltage criteria for LVH, may be normal variant ( R in aVL , [place] product ) Nonspecific T wave abnormality Abnormal ECG When compared with ECG of 14-Jul-2024 14:27, QT has shortened Referred By: Caitlin Gonzalez Electronically Signed By: Leon Gonzalez
[2024-09-14 11:59] LABS: MANUAL DIFF FLAG NO
[2024-09-14 12:08] LABS: Basophils Percent Auto 0.4 % (0-2); Eosinophils Absolute Auto 0.3 X10*3/uL (0.0-0.4); Eosinophils Percent Auto 3.4 % (0-4); Hematocrit 42.2 % (37.0-47.0); Hemoglobin 13.7 g/dl (12.0-16.0); Imm Gran Abs Auto 0.03 X10*3/uL (0.00-0.03); Imm Gran Pct Auto 0.4 % (0.0-0.4); Lymphocytes Absolute Auto 2.5 X10*3/uL (1.2-4.9); Lymphocytes Percent Auto 32.5 % (20-40); Mean Corpuscular HGB Conc 32.5 g/dl (31.0-35.0); Mean Corpuscular Hemoglobin 28.8 pg (27.0-33.0); Mean Corpuscular Volume 88.8 fL (80.0-98.0); Mean Platelet Volume 11.6 fL (9.4-12.3); Monocytes Absolute Auto 0.7 X10*3/uL (0.1-1.2); Monocytes Percent Auto 8.6 % (2-11); Neutrophils Absolute Auto 4.1 x10*3/uL (2.0-8.3); Neutrophils Percent Auto 54.7 % (45-73); Platelet Count 255 X10*3/uL (160-400); Red Blood Count 4.75 X10*6/uL (4.20-5.50); Red Cell Distribution Width 13.1 % (11.0-16.0); White Blood Count 7.6 X10*3/uL (4.8-10.8)
--- OUTSIDE RECORDS SUMMARY | 2024-09-14 12:08 | XMS_ITS | Continuity of Care Document ---
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 Name Role Phone Carlotta Mcghee CNP Unavailable Unavail able Allergies, Adverse Reactions, Alerts Substance Reaction Status Criticality No Known Allergies Active No Inform ation Medications Medication Instructions Dosage Effective Dates (start - stop) Status Comments ATORVASTATIN 20 MG TABLET TOME IAN TABLE TA [facility] - Active diclofenac 1 % topical [...] POTASSIUM 100 MG TAB TOME IAN TABLETA [facility] - Active HYDROCHLOROTHIAZIDE 12.5 MG CP [...] Diagnoses Date Provider Providers Copied on Encounter [facility], [address] [place] [address] 2,[address], [place], [place], [id number], tel:[phone] [facility] No Information 3 Hailey Laguerre. [address] [place], [place], [id number], [place]. tel:[phone] OFFICE/OUTPA TIENT VISIT, EST [facility], [address], [place], [place], [id number], [place] tel:[phone] Tele [facility] paperwork request (chief complaint) Housing lack 1 Hailey Laguerre. [address] [place], [place], [id number], [place]. tel:[phone] [facility], [address], [place], [place], [id number], [place] tel:[phone] [facility] No Information 1 Hailey Laguerre. [address] [place], [place], [id number], [place]. tel:[phone] OFFICE/OUTPA TIENT VISIT, EST [facility], [address], [place], [place], [id number], [place] tel:[phone] [facility] knee pain (chief complaint) Right knee pain, unspecified chronicity 1 Hailey Laguerre. [address] [place], [place], [id number], [place]. tel:[phone] [facility], [address], [place], [place], [id number], [place] tel:[phone] [facility] Knee pain. (chief complaint) Proc/trtmt not crd out d/t pt lv bef seen by [facility] prov 1 Hailey Laguerre. [address] [place], [place], [id number], [place]. tel:[phone] OFFICE/OUTPA TIENT VISIT, [facility], [address], [place], [place], [id number], [place] tel:[phone] [facility] covid vax (chief complaint) Encounter for immunization 1 No Information [facility], [address] [place] [address] 2,[address], [place], [place], [id number], [place] tel:[phone] [facility] Right knee pain, unspecified chronicity 1 [place]. [address] [place], [place], [id number], [place]. tel:[phone] OFFICE/OUTPA TIENT VISIT, [facility], [address], [place], [place], [address], [place] tel:[phone] [facility] covid vax (chief complaint) Encounter for immunization 1 No Information OFFICE/OUTPA TIENT VISIT, [facility], [address], [place], [place], [id number], [place] tel:[phone] [facility] right knee pain and left elbow pain (chief complaint)cou gh (chief complaint) Right knee pain, unspecified chronicityLe ft elbow painCough 1 [place]. [address] [place], [place], [address], [place]. 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 [address] [place], [place], [id number], [place]. tel:[phone] [facility], [address], [place], [place], [address], [place] tel:[phone] [facility] No Information 1 Hailey Laguerre. [address] [place], [place], [id number], [place]. tel:[phone] [facility], [address] [facility] [address], [place], [place], [address], [place] tel:[phone] [facility] Acute right-sided thoracic back pain 1 Alberto Smith. [address] [place], [place], [address]. tel:[phone] OFFICE/OUTPA TIENT VISIT, EST [facility], [address] [facility] [address], [place], [place], [address], [place] tel:[phone] [facility]gent Care back pain. (chief complaint) Acute right-sided thoracic back painRib pain on right side 1 Boy Fraga. [address] [place], [place], [id number]. tel:[phone] [facility], [address] [facility] [address], [place], [place], [address], [place] tel:[phone] [facility] COVID TEST (chief complaint) Close exposure to 2019 novel coronavirus 1 No Information [facility], [address], [place], [place], [address], [place] tel:[phone] [facility] Essential hypertension Prediabetes 1 No Information OFFICE/OUTPA TIENT VISIT, EST [facility], [address], [place], [place], [address], [place] tel:[phone] [facility] abdominal pain (chief complaint) Right sided abdominal pain 3 1 Hailey Laguerre. [address] [place], [place], [id number], [place]. tel:[phone] [facility], [address], [place], [place], [address], [place] tel:[phone] [facility] BP check (chief complaint) Proc/trtmt not crd out d/t pt lv bef seen by [facility] care prov 0 1 Hailey Laguerre. [address] [place], [place], [id number], [place]. tel:[phone] [facility], [address], [place], [place], [address], [place] tel:[phone] [facility] Essential hypertension Prediabetes 1 No Information Referring Provider: Carlotta Lara, [address] [place], [address] . tel:[phone] OFFICE/OUTPA TIENT VISIT, EST [facility], [address], [place], [place], [address], [place] tel:[phone] [facility] hypertension (chief complaint)chr onic back pain (chief complaint) Chronic left-sided low back pain with left-sided sciaticaEsse ntial hypertension Fungal infection 1 Hailey Laguerre. [address] [place], [place], [id number], [place]. tel:[phone] OFFICE/OUTPA TIENT VISIT, EST [facility], [address], [place], [place], [address], [place] tel:[phone] [facility] bp check (chief complaint) Essential hypertension 1 Hailey Laguerre. [address] [place], [place], [address], [place]. tel:[phone] [facility], [address] [facility] [address], [place], [place], [address], [place] tel:[phone] [facility] covid test (chief complaint) Close exposure to 2019 novel coronavirus 1 No Information OFFICE/OUTPA TIENT VISIT, EST [facility], [address] [facility] [address], [place], [place], [address], [place] tel:[phone] [facility] BP check (chief complaint)COV ID inquiry (chief complaint) Essential hypertension Cough 1 Hailey Laguerre. [address] [place], [place], [address], [place]. 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 [address] [place], [place], [address], [place]. tel:[phone] Optometry OFFICE/OUTPA TIENT VISIT, EST [facility], [address] [facility] [address], [place], [place], [address], [place] tel:[phone] [facility] OCT Follow up (chief complaint) Suspicious optic nerve cupping of both eyes Nov-0 0 Nicole Espino. [address] [place], [place], [id number]. tel:[phone] [facility], [address] [facility] [address], [address], [place] tel:[phone] [facility] No Information Oct-2 - 0 No Information [facility], [address] [facility] [address], [place], [place], [address], [place] tel:[phone] [facility] Encounter for dental exam and cleaning w/o abnormal findings Oct-2 - 0 No Information [facility], [address] [place] [address] [address] [place] [address], [id number], [place] tel:[phone] [facility] No Information Oct-0 -202 0 No Information [facility], [address] [facility],[address], [place], [address], [place] tel:[phone] [facility] broken glasses and blurry vision (chief complaint) Hyperopia with presbyopia of both eyesSuspicio us optic nerve cupping of both eyesEncounte r for examination of eyes and vision with abnormal findings Oct-0 7-202 0 Naomy Peters. [address] [place], [place], [address], [place]. tel:[phone] [facility], [address] [facility] [address], [id number], [place] tel:[phone] [facility] Encounter for dental exam and cleaning w/o abnormal findings Oct-0 6-202 0 Ozzy Moreno. [address] [place], [place], [address], [place]. tel:[phone] [facility], [address] [facility] [address], [place], [id number], tel:[phone] [facility] Encounter for dental exam and cleaning w/o abnormal findings Mar-- 0 No Information [facility], [address], [place], [place], [address], tel:[phone] [facility] chronic conditions (chief complaint) Proc/trtmt not crd out d/t pt lv bef seen by [facility] care prov Feb- 0 Hailey Laguerre. [address] [place], [place], [address], [place]. 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 [address] [place], [place], [address], [place]. tel:[phone] Family History Family Member Type Diagnosis Age [...] Insurance type Covered republican ID Authoriza tion(s) [facility] C3 ACO [id number] [facility] C3 ACO [id number] [facility] C3 O [id number] Social History Type Description Quantity Date Captured [...] meets criteria of cohort currently sanctioned by [facility]. Contraindications and risk factors assessed. Patient's questions answered. covid vax Patient presents in [place] for COVID vaccine. Patient meets criteria of cohort currently sanctioned by [facility]. Contraindications and risk factors assessed. Patient's questions [...] U C w/concern about back pain. Used php engineer for visit.Pt reports back pain for 2mo. [...] had X ray in the past in [place] Now that she is working she is [...] her ADL. BP check Last visit [place], patient BP not at goal since she [...] She has a BP machine at home. 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 NICANOR 2.5 years ago in [place] and were given the glasses that are currently burning. Pt denies: flashes, floaters, burning, itching, and redness. 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 [facility] : 2 months in [place], before that she was in [place] for 6 months Previous medical care in the [facility]: She had a doctor in [place] that she saw once, but she had [...]
--- OUTSIDE RECORDS SUMMARY | 2024-09-14 12:08 | XMS_ITS ---
Author Organization [facility] Address [address] [place] [address] Care Team Providers Care Tai Chi Instructor Name Role Phone Sarah Tobias NP Primary Care Provider [phone] Asthma Program Status:Enrolled (Active) Start date:05/31/2022 Enrollment date:05/31/2022 Case Team Name Relationship Phone Demond Rodriguez PharmD (Responsible Staff) [phone] Continued Care and Services Coordination
--- OUTSIDE RECORDS SUMMARY | 2024-09-14 12:08 | XMS_ITS | Clinical Summary ---
Author Organization [facility] Address [address] [place] [address] Care Team Providers Care Energy Manager Name Role Phone Sarah Tobias Primary Care Provider [phone] Medical History Medical History Date Comments HTN (hypertension) DX:HTN (hyper tension) Morbid obesity (CMS/HCC V24, CMS/HCC V28) DX:Morbid obesity (HCC) Osteoarthritis DX:Osteoarthriti s Chronic migraine [...] Test 12/13/2024 12/14/2023 Depression Screening 05/07/2025 05/07/2024 Pneumococcal Vaccine: Pediatrics (0 to 5 Years) and At-Risk Patients (6 to 64 Years) (3 of 3 - PCV20 or PCV21) 01/18/2028 01/17/2023, 01/06/2022 Cholesterol Screening (Lipid Panel) 06/12/2029 06/12/2024, 06/12/2024, 01/17/2023, Additional history exists DTaP,Tdap,and Td Vaccines (2 - Td or Tdap) 01/07/2032 01/06/2022 Hepatitis C Screening Completed 01/17/2023 Influenza [...] patient's age to complete this topic Meningococcal B Vaccine Aged Out No l onger eligible based on patient's age to complete this topic RSV Immunization Patients Under 20 months Aged Out No longer eligible based on patient's age to complete this topic Varicella Vaccines Aged Out No longer eligible based on patient's age to complete this topic Care Teams Energy Manager Relationship Specialty Start Date End Date Sarah Tobias [facility] - General 05/20/22
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
[2024-09-14 12:28] VITALS: PULSE 112; RESP 24; O2SAT 98
[2024-09-14] MEDS: Albuterol Sulfate 2.5 MG, Albuterol/Iprat 2.5/0.5MG 3 ML 3 ML INHALE (12:33)
[2024-09-14] MEDS: Ketorolac Tromethamine 15 MG/ML VIAL IVPUSH (12:36)
[2024-09-14] MEDS: ondansetron HCL 4 MG/2 ML VIAL IVPUSH (12:40)
[2024-09-14 12:44] LABS: Alkaline Phosphatase 73 U/L (39-117); Anion Gap 12 (12-20); Aspartate Amino Transferase 24 U/L (5-31); Bilirubin Total 0.5 mg/dL (0.0-1.0); Blood Urea Nitrogen 18 mg/dL (9-16); Calcium 8.8 mg/dL (8.4-10.2); Carbon Dioxide 25 mmol/L (22-29); Chloride 109 mmol/L (96-108); Creatinine Clr Calc Pharmacy 109.1; Estimated Glomerular Filt Rate > 60; Glucose Random 153 mg/dL (60-115); HCG Quantitative < 2 mIU/mL; Lipase 22 U/L (8-78); Magnesium 1.9 mg/dL (1.6-2.6); Potassium 3.8 mmol/L (3.3-5.1); Sodium 142 mmol/L (135-145); Total Protein 7.1 g/dL (6.5-8.0); Troponin-I High Sensitivity < 2.7 ng/L (<3.5-17.0)
[2024-09-14 12:45] VITALS: BP 152/73; PULSE 69; RESP 12; O2SAT 100
[2024-09-14 13:06] LABS: Alanine Aminotransferase 33 U/L (0-31)
[2024-09-14 13:11] LABS: Appearance Urine Cloudy; Color Urine Yellow; Glucose Urine UA Negative (Negative); Leukocyte Esterase Urine Small (1+) (Negative); Nitrite Urine Negative (Negative); Specific Gravity - Urine >= 1.030 (1.005-1.025); UMIC TRIGGER UACC YES; Urine Blood Negative (Negative); Urine Ketones Trace mg/dL (Negative); Urine Protein Trace mg/dL (Neg-Trace)
[2024-09-14] MEDS: iohexoL 350 MG/ML 100 ML INFUS..BTL IV (13:21)
[2024-09-14 13:25] LABS: Bacteria Urine 4+ (None Seen); RBC Urine 0-2 /HPF (0-2); UACC Culture Trigger YES
[2024-09-14 15:55] VITALS: BP 125/49; PULSE 63; RESP 20; TEMP 36.6; O2SAT 98
[2024-09-14] MEDS: Nitrofurantoin Monohyd/M-Cryst 100 MG CAPSULE PO (17:13)
[2024-09-14 17:14] VITALS: BP 130/80; PULSE 63; RESP 20; TEMP 36.6; O2SAT 98
== END 2024-09-14 17:14 | disposition home or self-care (01) ==
PROVIDERS: Registered Nurse Emergency; Emergency Provider Emergency Medicine; PCP Nurse Practitioner
DX: N39.0 Urinary tract infection, site not specified (principal); D25.9 Leiomyoma of uterus, unspecified; R10.2 Pelvic and perineal pain; R10.33 Periumbilical pain; R11.2 Nausea with vomiting, unspecified; R07.89 Other chest pain; Z79.899 Other long term (current) drug therapy
CPT/HCPCS: 36415; 71046; 74177; 76830; 76856; 80053; 81001; 81003; 83690; 83735; 84484; 84702; 85025; 87086; 93005; 94640; 96374; 96375; 99284; 99285; J1885; J2405; Q9967

== ENCOUNTER → 2024-09-14 11:48 | Outpatient (BNV) | payer MEDICAID, SELFPAY | PROVIDERS: Emergency Provider Emergency Medicine; PCP Nurse Practitioner; Visit Provider Internal Medicine Cardiovascular Disease | DX: R94.31 Abnormal electrocardiogram [ECG] [EKG] (principal); R07.9 Chest pain, unspecified | CPT/HCPCS: 93010 ==

== ENCOUNTER → 2024-09-14 12:11 | Outpatient (BNV) | payer MEDICAID, SELFPAY | PROVIDERS: Emergency Provider Emergency Medicine; PCP Nurse Practitioner; Visit Provider Radiology Vascular & Interventional Radiology | DX: R93.3 Abnormal findings on diagnostic imaging of other parts of digestive tract (principal); R11.2 Nausea with vomiting, unspecified; R19.7 Diarrhea, unspecified; R10.33 Periumbilical pain; R07.9 Chest pain, unspecified; R06.02 Shortness of breath | CPT/HCPCS: 71046; 74177; 76830; 76856 ==

== ENCOUNTER 2024-10-17 08:27 | Emergency (ER) | payer MEDICAID, SELFPAY ==
[2024-10-17 08:31] VITALS: BP 163/89; PULSE 74; RESP 18; TEMP 35.9; O2SAT 95; BMI 51.3
--- OUTSIDE RECORDS SUMMARY | 2024-10-17 09:20 | XMS_ITS ---
Author Organization [facility] Address [address] [place] [address] Care Team Providers Care Manager Mall Name Role Phone Sarah Tobias NP Primary Care Provider [id number] Asthma Program Status:Enrolled (Active) Start date:05/31/2022 Enrollment date:05/31/2022 Case Team Name Relationship Phone Demond Rodriguez PharmD (Responsible Staff) [phone] Continued Care and Services Coordination
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
--- OUTSIDE RECORDS SUMMARY | 2024-10-17 09:20 | XMS_ITS | Clinical Summary ---
Author Organization [employer] Address [address] [place] [address] [address] [place] [address] Care Team Providers Care Promotions Executive Producer Name Role Phone Unavailable Primary Care Provider Unavailabl e Immunizations Immunization Administration Dates Next Due Moderna Covid-19 Vaccine [...] 07/14/2022, 01/18/2021, 12/21/2020 Influenza Vaccine (#1) 2024 Pneumococcal Vaccine: 50+ Years (2 of 2 - PPSV23) 2024 01/06/2022 Zoster Vaccines (1 of 2) 2024 DTaP/Tdap/Td [...]
--- OUTSIDE RECORDS SUMMARY | 2024-10-17 09:20 | XMS_ITS | Clinical Summary ---
Author Organization [facility] Address [address] [place] [address] Care Team Providers Care Box Brander Name Role Phone Sarah Tobias Primary Care Provider [phone] Medical History Medical History Date Comments HTN [...] Vaccine ( season) 2024 07/14/2022, 01/18/2021, 12/21/2020 Zoster Vaccines (1 of 2) 2024 Hypertension/CHF/CAD Annual BMP Blood Test 12/13/2024 12/14/2023 Depression Screening 05/07/2025 05/07/2024 Pneumococcal Vaccine: 50+ Years (3 of 3 - PCV20 or PCV21) 01/18/2028 01/17/2023, 01/06/2022 Pneumococcal Vaccine: Pediatrics (0 to 5 [...] age to complete this topic Care Teams Box Brander Relationship Specialty Start Date End Date Sarah Tobias PCP - General 05/20/22
--- OUTSIDE RECORDS SUMMARY | 2024-10-17 09:20 | XMS_ITS | Continuity of Care Document ---
Author Organization [facility] Address [address] [place] [address] Phone Care Team Providers Care Finance Director Name Role Phone Carlotta Mcghee CNP Unavailable Unavail able Allergies, Adverse Reactions, Alerts Substance Reaction Status Criticality No Known Allergies Active No Inform ation Medications Medication Instructions Dosage Effective Dates (start - stop) Status Comments ATORVASTATIN 20 MG TABLET TOME IAN TABLE TA [facility] - Active diclofenac 1 % [...] POTASSIUM 100 MG TAB TOME IAN TABLETA [facility] - Active HYDROCHLOROTHIAZIDE 12.5 MG CP TOME IAN [facility] - Active lidocaine 5 % topical [...] Diagnoses Date Provider Providers Copied on Encounter [facility], [address] [place] [address] 2,[address], [place], [place], [id number], tel:[phone] [employer] No Information 3 Hailey Laguerre. [address] [place], [place], [id number], [place]. tel:[phone] OFFICE/OUTPA TIENT VISIT, EST [facility], [address], [place], [place], [id number], [place] tel:[phone] Tele [facility] paperwork request (chief complaint) Housing lack 1 Hailey Laguerre. [address] [place], [place], [id number], [place]. tel:[phone] [facility], [address], [place], [place], [id number], [place] tel:[phone] [facility] No Information 1 Hailey Laguerre. [address] [place], [place], [id number], [place]. tel:[phone] OFFICE/OUTPA TIENT VISIT, EST [facility], [address] [facility], [place], [place], [id number], [place] tel:[phone] [facility] knee pain (chief complaint) Right knee pain, unspecified chronicity 1 Hailey Laguerre. [address] [place], [place], [id number], [place]. tel:[phone] [facility], [address], [place], [place], [id number], [place] tel:[phone] [facility] Knee pain. (chief complaint) Proc/trtmt not crd out d/t pt lv bef seen by [facility] prov 1 Hailey Laguerre. [address] [place], [place], [id number], [place]. tel:[phone] OFFICE/OUTPA TIENT VISIT, [facility], [address], [place], [place], [id number], [place] tel:[phone] [facility] covid vax (chief complaint) Encounter for immunization 1 No Information [facility], [address] [place] [address] 2,[address], [place], [place], [id number], [place] tel:[phone] [facility] Right knee pain, unspecified chronicity 1 [place] Myers. [address] [place], [place], [id number], [place]. tel:[phone] OFFICE/OUTPA TIENT VISIT, [facility], [address], [place], [place], [address], [place] tel:[phone] [facility] covid vax (chief complaint) Encounter for immunization 1 No Information OFFICE/OUTPA TIENT VISIT, [facility], [address], [place], [place], [id number], [place] tel:[phone] [facility] right knee pain and left elbow pain (chief complaint)cou gh (chief complaint) Right knee pain, unspecified chronicityLe ft elbow painCough 1 [place]. [address] [place], [place], [id number], [place]. 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 [address] [place], [place], [id number], [place]. tel:[phone] [facility], [address] [place] [address], [place], [place], [id number], [place] tel:[phone] [facility] No Information 1 Hailey Laguerre. [address] [place], [place], [id number], [place]. tel:[phone] [facility], [address] [facility] [facility] [address] [facility] [address], [place], [place], [id number], [place] tel:[phone] [facility] Acute right-sided thoracic back pain 1 Alberto Smith. [address] [place], [place], [id number]. tel:[phone] OFFICE/OUTPA TIENT VISIT, EST [facility], [address] [facility] [address], [place], [place], [id number], [place] tel:[phone] [facility] back pain. (chief complaint) Acute right-sided thoracic back painRib pain on right side 1 Boy Fraga. [address] [place], [place], [id number]. tel:[phone] [facility], [address] [facility] [facility] [address], [place], [place], [id number], [place] tel:[phone] [facility] COVID TEST (chief complaint) Close exposure to 2019 novel coronavirus 1 No Information [facility], [address] [facility] [address], [place], [place], [address], [place] tel:[phone] [facility] Essential hypertension Prediabetes 1 No Information OFFICE/OUTPA TIENT VISIT, EST [facility], [address] [facility], [place], [place], [id number], [place] tel:[phone] [facility] abdominal pain (chief complaint) Right sided abdominal pain 3 1 Hailey Laguerre. [address] [place], [place], [id number], [place]. tel:[phone] [facility], [address] [place] [address], [place], [place], [id number], [place] tel:[phone] [facility] BP check (chief complaint) Proc/trtmt not crd out d/t pt lv bef seen by [facility] care prov 0 1 Hailey Laguerre. [address] [place], [place], [id number], [place]. tel:[phone] [facility], [address] [place], [place], [place], [address], [place] tel:[phone] [facility] Essential hypertension Prediabetes 1 No Information Referring Provider: Carlotta Lara, [address] [place], [address] . tel:[phone] OFFICE/OUTPA TIENT VISIT, EST [facility], [address], [place], [place], [id number], [place] tel:[phone] [facility] hypertension (chief complaint)chr onic back pain (chief complaint) Chronic left-sided low back pain with left-sided sciaticaEsse ntial hypertension Fungal infection 1 Hailey Laguerre. [address] [place], [place], [id number], [place]. tel:[phone] OFFICE/OUTPA TIENT VISIT, EST [facility], [address], [place], [place], [id number], [place] tel:[phone] [facility] bp check (chief complaint) Essential hypertension 1 Hailey Laguerre. [address] [place], [place], [id number], [place]. tel:[phone] [facility], [address] [facility] [facility] [address] [facility] [address], [place], [place], [id number], [place] tel:[phone] [facility] covid test (chief complaint) Close exposure to 2019 novel coronavirus 1 No Information OFFICE/OUTPA TIENT VISIT, EST [facility], [address] [facility] [address], [place], [place], [id number], [place] tel:[phone] [facility] BP check (chief complaint)COV ID inquiry (chief complaint) Essential hypertension Cough 1 Hailey Laguerre. [address] [place], [place], [id number], [place]. 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 [address] [place], [place], [id number], [place]. tel:[phone] Optometry OFFICE/OUTPA TIENT VISIT, EST [facility], [address] [facility] [address], [place], [place], [id number], [place] tel:[phone] [facility] OCT Follow up (chief complaint) Suspicious optic nerve cupping of both eyes Nov-0 0 Nicole Espino. [address] [place], [place], [id number]. tel:[phone] [facility], [address] [facility] [address], [place], [id number], [place] tel:[phone] [facility] No Information Oct-2 - 0 No Information [facility], [address] [facility] [address], [place], [place], [id number], [place] tel:[phone] [facility] Encounter for dental exam and cleaning w/o abnormal findings Oct-2 - 0 No Information [facility], [address] [place] [address] 2,[address] [place] [address], [id number], [place] tel:[phone] [facility] No Information Oct-0 -202 0 No Information [facility], [address] [facility] [address], [place], [address], [place] tel:[phone] [facility] broken glasses and blurry vision (chief complaint) Hyperopia with presbyopia of both eyesSuspicio us optic nerve cupping of both eyesEncounte r for examination of eyes and vision with abnormal findings Oct-0 7-202 0 Naomy Peters. [address] [place], [place], [id number], [place]. tel:[phone] [facility], [address] [facility] [address], [place], [address], [place] tel:[phone] [facility] Encounter for dental exam and cleaning w/o abnormal findings Oct-0 6-202 0 Ozzy Moreno. [address] [place], [place], [id number], [place]. tel:[phone] [facility], [address] [facility] [address], [place], [id number], tel:[phone] [facility] Encounter for dental exam and cleaning w/o abnormal findings Mar-- 0 No Information [facility], [address] [place], [place], [place], [id number], tel:[phone] [facility] chronic conditions (chief complaint) Proc/trtmt not crd out d/t pt lv bef seen by [facility] care prov Feb- 0 Hailey Laguerre. [address] [place], [place], [id number], [place]. 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 [address] [place], [place], [id number], [place]. tel:[phone] Family History Family Member Type Diagnosis Age [...] Insurance type Covered democrat ID Authoriza tion(s) [facility] C3 ACO [id number] [facility] C3 ACO [id number] [facility] C3 O [id number] Social History Type Description Quantity Date Captured [...] meets criteria of cohort currently sanctioned by [facility]. Contraindications and risk factors assessed. Patient's questions answered. covid vax Patient presents in [place] for COVID vaccine. Patient meets criteria of cohort currently sanctioned by [facility]. Contraindications and risk factors assessed. Patient's questions [...] U C w/concern about back pain. 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 [...] had X ray in the past in [place] Now that she is working she is [...] her ADL. BP check Last visit in [facility], patient BP not at goal since she [...] She has a BP machine at home. 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 NICANOR 2.5 years ago in [place] and were given the glasses that are currently burning. Pt denies: flashes, floaters, burning, itching, and redness. 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 [facility] : 2 months in [place], before that she was in [place] for 6 months Previous medical care in the [facility]: She had a doctor in [place] that she saw once, but she had no f/u appt.'s after that. PMH: HTN, Asthma ( intermittent), Migraines, Circulatory issues, high cholesterolPSH: Gallbladder removal in 2016 in [place]. Medication hx - Losartan 100 mg once a day - but ? increase of the medication was planned. - chlorthalidone 25- atorvastatin - dosage unknown Central ( for circulation- given in [place], but was damaging her kidneys so she [...]
--- NOTE | 2024-10-17 09:43 | ED_ITS ---
HPI - Eye Problem General Chief complaint: Eye Problems Stated complaint: eye issue Time Seen by Provider: 10/17/24 09:04 Source: patient, RN notes reviewed and old records reviewed Mode of arrival: ambulatory History of Present Illness ED Provider: Coby Laws PA-C HPI Narrative: 49-year-old female with a past medical history of hypertension presenting to the ED complaining of right eye irritation, pain, tearing, and blurry vision x2 days, worsening today. States feels like something something is stuck in her eye. Denies known injury, trauma, fall, vision loss, purulent drainage, nausea/vomiting. Wears glasses, denies wearing contacts Related Data Previous Rx's ?Medication ?Instructions ?Recorded miconazole nitrate 2 % vaginal 1 appful vaginal BEDTIME 7 days 02/07/22 cream #45 grams nitrofurantoin 100 mg PO Q12H 5 days #10 caps 02/07/22 monohydrate/macrocrystals 100 mg capsule (Macrobid) albuterol sulfate 90 mcg/actuation 2 inh inhalation Q4-6H PRN 05/13/22 breath activated powder inhaler shortness of breath or wheezing #1 ea prednisone 20 mg tablet 40 mg (2 x 20 mg) PO DAILY 5 days 05/13/22 #10 tabs phenazopyridine 200 mg tablet 200 mg PO TID PRN pain 6 doses #6 09/07/22 (Pyridium) tabs sulfamethoxazole 800 1 tab PO BID #10 tabs 09/07/22 mg-trimethoprim 160 mg tablet (Bactrim DS) acetaminophen 500 mg tablet 1,000 mg (2 x 500 mg) PO QID PRN 08/27/23 pain #30 tabs cyclobenzaprine 5 mg tablet 5 mg PO TID PRN muscle spasm #14 08/27/23 tabs ibuprofen 600 mg tablet 600 mg PO Q6H PRN pain #20 tabs 08/27/23 albuterol sulfate 2.5 mg/0.5 mL 5 mg inhalation Q6H PRN shortness 01/29/24 solution for nebulization of breath or wheezing #30 ea prednisone 20 mg tablet 40 mg (2 x 20 mg) PO DAILY #10 tabs 01/29/24 nitrofurantoin 100 mg PO Q12H 7 days #14 caps 09/14/24 monohydrate/macrocrystals 100 mg capsule (Macrobid) Allergies Allergy/AdvReac Type Severity Reaction Status Date / Time No Known Allergies Allergy Verified 10/17/24 08:33 Review of Systems Review of Systems: Yes all other systems are reviewed and are negative Constitutional: Constitutional: Reports as per [facility] Past Medical History Attestation statement: The following information was validated with the patient. Source: old records reviewed Medical History Hypertension Social History Social History Unable to assess alcohol history related to: Unknown Patient Tobacco Use Status: Never used Tobacco Advance Directives: No Advance Directives Information Provided: Yes Physical Exam Vital Signs: Vital Signs: Last Vital Signs Temp 96.6 F L 10/17/24 10:03 Pulse 74 10/17/24 10:03 Resp 18 10/17/24 10:03 BP 163/89 H 10/17/24 10:03 Pulse Ox 95 10/17/24 10:03 O2 Del Method Room Air 10/17/24 10:03 BMI result Body Mass Index 51.3 Const: General: cooperative, healthy appearing and no acute distress Orientation/consciousness: patient oriented x3 Limitations: no limitations HEENT: Head: Yes normal to inspection and Yes atraumatic Ears: hearing grossly normal bilaterally General nose exam: Normal external nose present Face and sinus: Yes normal facial exam Eyes: Other: EOMs intact without entrapment or pain Fluorescein staining use without uptake. No corneal abrasion or ulceration General: appearance normal, both eyes and all related structures Eyelids: Yes other (+ right upper eyelid internal hordeolum. Mildly tender) Conjunctivae: conjunctival abnormal right conjunctival injection diffuse; without discharge and without subconjunctival hemmorhages Pupils: Equal, round and reactive pupils present EOM: EOMs intact bilaterally and no movement deficit Direct Ophthalmoscopy: normal light reflex and no photophobia Neck: Neck: Yes normal visual inspection and Yes no meningeal signs Resp: Effort & Inspection: normal respiratory effort and no respiratory distress Cardio: Rate: regular rate Skin: Rashes: no rashes Wounds: no wounds Neuro: General: patient oriented x3, tone normal and no meningeal signs Cranial nerves: Yes CN's II-XII intact bilaterally and Yes Equal, round and reac tive pupils present Gait exam (Neuro): Normal gait present Extrem: General: Yes normal to inspection Medications Administered Discontinued Medications Generic Name Dose Route Start Last Admin Trade Name Taylor PRN Reason Stop Dose Admin Fluorescein Sodium 1 strip 10/17/24 09:07 10/17/24 10:05 Fluorescein Sodium Strip EYE-RIGHT 10/17/24 09:08 1 strip ONCE ONE Administration Tetracaine HCl 1 drop 10/17/24 09:07 10/17/24 10:05 Tetracaine Hcl/Pf 0.5% Oph Mae 4 Ml Drops EYE-RIGHT 10/17/24 09:08 1 drop ONCE ONE Administration Medical Decision Making Medical Decision Making MDM Narrative: 49-year-old female with a past medical history of hypertension presenting to the ED complaining of right eye irritation, pain, tearing, and blurry vision x2 days, worsening today. On exam vital signs stable, NAD, nontoxic appearing, physical exam as noted above consistent with internal upper hordeolum noted to right eye. No uptake on fluorescein stain. No evidence of globe rupture. Concern for hordeolum. No evidence of ulceration, abrasion, periorbital or septal cellulitis Plan: PCP/ophthalmology follow up as needed, warm compresses and massage Please refer to course for remaining clinical decision making, interpretation of labs/imaging results, and discussions with consultants and/or family members. Results discussed with patient including worrisome signs and symptoms and strict return precautions, and when to return to the emergency department. They verbalized understanding and feel safe for discharge at this time. Differential Diagnosis Differential Diagnoses: The differential diagnosis associated with the presentation includes As above External Record Review External record reviewed: Inpatient record, Office record, Outpatient record, Prior outpatient labs, Prior outpatient radiology, Primary care record and Outside ED record Tests considered The following testing was considered but not selected: As above Prescription Management I considered prescription management with: Pain Medication Chronic Conditions Patient?s care impacted by: Other Social Determinants Patient?s care significantly limited by Social Determinants of Health including: Other Social Determinant of Health Discharge Plan Discharge Clinical Impression: Internal hordeolum of right eye Patient Disposition: Home, Self-Care Instructions: Stye (ED) Additional Instructions: You have an internal stye Please apply warm compresses and gentle massage Take Tylenol and ibuprofen for pain Follow up with your primary care doctor Follow up with Ophthalmology as needed If symptoms persist or worsen you develop vision change or loss, purulent drainage from your eye or increasing pain/swelling return to the ED Prescriptions: No Action albuterol sulfate 90 mcg/actuation aerosol powdr breath activated 2 inh inhalation Q4-6H PRN (Reason: shortness of breath or wheezing) Qty: 1 0RF prednisone 20 mg tablet 40 mg PO DAILY 5 Days Qty: 10 0RF miconazole nitrate 2 % cream 1 appful vaginal BEDTIME 7 Days Qty: 45 0RF nitrofurantoin monohyd/m-cryst [Macrobid] 100 mg capsule 100 mg PO Q12H 5 Days Qty: 10 0RF Rx Instructions: must administer with a meal/food sulfamethoxazole-trimethoprim [Bactrim DS] 800-160 mg tablet 1 tab PO BID Qty: 10 0RF phenazopyridine [Pyridium] 200 mg tablet 200 mg PO TID PRN (Reason: pain) Qty: 6 0RF prednisone 20 mg tablet 40 mg PO DAILY Qty: 10 0RF albuterol sulfate 2.5 mg/0.5 mL solution for nebulization 5 mg inhalation Q6H PRN (Reason: shortness of breath or wheezing) Qty: 30 0RF acetaminophen 500 mg tablet 1,000 mg PO QID PRN (Reason: pain) Qty: 30 0RF ibuprofen 600 mg tablet 600 mg PO Q6H PRN (Reason: pain) Qty: 20 0RF cyclobenzaprine 5 mg tablet 5 mg PO TID PRN (Reason: muscle spasm) Qty: 14 0RF nitrofurantoin monohyd/m-cryst [Macrobid] 100 mg capsule 100 mg PO Q12H 7 Days Qty: 14 0RF Rx Instructions: must administer with a meal/food Referrals: Farrukh Romo [Physician] - 1 week Physician,Unknown J [Primary Care Provider] - Interventions: ED Discharge Assessment Last Done: 10/17/24 10:03 Discharge Date/Time: 10/17/24 10:04 Print Language: Zimbabwean
[2024-10-17 10:03] VITALS: BP 163/89; PULSE 74; RESP 18; TEMP 35.9; O2SAT 95
[2024-10-17] MEDS: Tetracaine HCl/PF 0.5% Oph Sol 4 ML DROPS 1 DROP EYE-RIGHT (10:05)
[2024-10-17] MEDS: Fluorescein Sodium STRIP 1 STRIP EYE-RIGHT (10:05)
== END 2024-10-17 10:04 | disposition home or self-care (01) ==
PROVIDERS: Emergency Provider Emergency Medicine
DX: H00.013 Hordeolum externum right eye, unspecified eyelid (principal); H57.89 Other specified disorders of eye and adnexa; H53.8 Other visual disturbances
CPT/HCPCS: 99283

== ENCOUNTER 2024-11-10 09:13 | Emergency (ER) | payer MEDICAID, SELFPAY ==
--- NOTE | ~2024-11-10 | XR_ITS ---
CLINICAL HISTORY: bradycardia ; unable to add time to chest image in [facility], image obtained at 0950 . 1 view chest x-ray. Comparison: CR/AK - XR CHEST 2V - 09/14/24 12:20 EDT Findings: The lungs are adequately expanded. No focal consolidation. No effusion or pneumothorax. Cardiac and mediastinal contours are within normal limits. No acute osseous abnormality Impression: No acute process. This document has been electronically signed by: Ramos Terrazas MD on 11/10/2024 10:07:18
[2024-11-10 09:20] VITALS: BP 145/88; PULSE 72; RESP 20; TEMP 36.6; O2SAT 97; BMI 49.6
[2024-11-10 10:10] LABS: Influenza A PCR NEGATIVE (Negative); Influenza B PCR NEGATIVE (Negative); Resp Syncy Virus RNA Qual PCR NEGATIVE (Negative); SARS COV2 PCR INHOUSE NEGATIVE (Negative)
[2024-11-10 11:21] VITALS: BP 163/84; PULSE 62; RESP 19; TEMP 36.6; O2SAT 96
--- OUTSIDE RECORDS SUMMARY | 2024-11-10 11:22 | XMS_ITS | Clinical Summary ---
Author Organization [facility] Address [address] [place] [address] [address] [place] [address] Care Team Providers Care Organizational Effectiveness Director Name Role Phone Unavailable Primary Care Provider [...] FOBT 1974 Lipid Panel 1974 Sigmoidoscopy 1974 Disability Screening 1974 Alcohol/Substance Use Screening 1986 Tobacco Screening 1986 Family Planning (PISQ) 1989 Hepatitis B Vaccines (1 of 3 - 19+ 3-dose series) 1993 COVID-19 Vaccine (4 - 2023-2 5 season) 2024 07/14/2022, 01/18/2021, 12/21/2020 Pneumococcal Vaccine: 50+ Years (2 of 2 - PPSV23) 2024 01/06/2022 Zoster Vaccines (1 of 2) 2024 Influenza Vaccine (Season Ended) 2025 DTaP/Tdap/Td Vaccines (2 - T d or Tdap) 01/07/2032 01/06/2022 RSV Patients and Patients Aged 60 years or older (1 - 1-dose 75+ series) 2049 HIB Vaccines Aged Out No longer eligi [...]
[2024-11-10 11:23] VITALS: O2SAT 96
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
[2024-11-10 12:29] VITALS: BP 163/84; PULSE 62; RESP 19; TEMP 36.6; O2SAT 96
== END 2024-11-10 12:34 | disposition home or self-care (01) ==
PROVIDERS: Emergency Provider Emergency Medicine; PCP Dentist General Practice
DX: M54.16 Radiculopathy, lumbar region (principal); M79.605 Pain in left leg; Z03.818 Encounter for observation for suspected exposure to other biological agents ruled out; I10 Essential (primary) hypertension; J45.909 Unspecified asthma, uncomplicated
CPT/HCPCS: 0241U; 71045; 99283; 99285

== ENCOUNTER → 2024-11-10 09:25 | Outpatient (BNV) | payer MEDICAID, SELFPAY | PROVIDERS: PCP Dentist General Practice; Visit Provider Radiology Vascular & Interventional Radiology | DX: R00.1 Bradycardia, unspecified (principal) | CPT/HCPCS: 71045 ==

== ENCOUNTER → 2024-11-26 20:07 | Outpatient (BNV) | payer MEDICAID, SELFPAY | PROVIDERS: PCP Dentist General Practice; Visit Provider Radiology Vascular & Interventional Radiology | DX: M79.89 Other specified soft tissue disorders (principal); M79.671 Pain in right foot | CPT/HCPCS: 73610; 73620 ==

== ENCOUNTER 2024-11-26 20:24 | Emergency (ER) | payer MEDICAID, SELFPAY ==
--- OUTSIDE RECORDS SUMMARY | 2022-06-09 10:03 | XMS_ITS | Continuity of Care Document ---
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 Role Phone Carlotta Mcghee CNP Unavailable Unavail able Allergies, Adverse Reactions, Alerts Substance Reaction Status Criticality No Known Allergies Active No Inform ation Medications Medication Instructions Dosage Effective Dates (start - stop) Status Comments ATORVASTATIN 20 MG TABLET TOME IAN TABLE TA [facility] - Active diclofenac 1 % topical gel [...] POTASSIUM 100 MG TAB TOME IAN TABLETA [facility] - Active HYDROCHLOROTHIAZIDE 12.5 MG CP TOME IAN [facility] - Active lidocaine 5 % topical [...] Diagnoses Date Provider Providers Copied on Encounter [facility], [address] [place] [address] 2,[address], [place], [place], [id number], tel:[phone] [facility] No Information 3 Hailey Laguerre. [address] [place], [place], [id number], [place]. tel:[phone] OFFICE/OUTPA TIENT VISIT, EST [facility], [address], [place], [place], [id number], [place] tel:[phone] [facility] [employer] [facility] paperwork request (chief complaint) Housing lack 1 Hailey Laguerre. [address] [place], [place], [id number], [place]. tel:[phone] [facility], [address], [place], [place], [id number], [place] tel:[phone] [employer] [facility] No Information 1 Hailey Laguerre. [address] [place], [place], [id number], [place]. tel:[phone] OFFICE/OUTPA TIENT VISIT, EST [facility], [address], [place], [place], [id number], [place] tel:[phone] [facility] knee pain (chief complaint) Right knee pain, unspecified chronicity 1 Hailey Laguerre. [address] [place], [place], [id number], [place]. tel:[phone] [facility], [address], [place], [place], [id number], [place] tel:[phone] [facility] Knee pain. (chief complaint) Proc/trtmt not crd out d/t pt lv bef seen by [facility] prov 1 Hailey Laguerre. [address] [place], [place], [id number], [place]. tel:[phone] OFFICE/OUTPA TIENT VISIT, [facility], [address], [place], [place], [id number], [place] tel:[phone] [facility] covid vax (chief complaint) Encounter for immunization 1 No Information [facility], [address] [place] [address] 2,[address], [place], [place], [id number], [place] tel:[phone] [facility] Right knee pain, unspecified chronicity 1 [place] Myers. [address] [place], [place], [id number], [place]. tel:[phone] OFFICE/OUTPA TIENT VISIT, [facility], [address], [place], [place], [id number], [place] tel:[phone] [facility] covid vax (chief complaint) Encounter for immunization 1 No Information OFFICE/OUTPA TIENT VISIT, [facility], [address], [place], [place], [id number], [place] tel:[phone] [facility] right knee pain and left elbow pain (chief complaint)cou gh (chief complaint) Right knee pain, unspecified chronicityLe ft elbow painCough 1 [place]. [address] [place], [place], [address], [place]. 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 [address] [place], [place], [id number], [place]. tel:[phone] [facility], [address], [place], [place], [address], [place] tel:[phone] [facility] No Information 1 Hailey Laguerre. [address] [place], [place], [id number], [place]. tel:[phone] [facility], [address], [place], [place], [address], [place] tel:[phone] [facility] Acute right-sided thoracic back pain 1 Alberto Smith. [address] [place], [place], [id number]. tel:[phone] OFFICE/OUTPA TIENT VISIT, EST [facility], [address] [facility] [address], [place], [place], [address], [place] tel:[phone] [facility] back pain. (chief complaint) Acute right-sided thoracic back painRib pain on right side 1 Boy Fraga. [address] [place], [place], [id number]. tel:[phone] [facility], [address] [facility] [address], [place], [place], [address], [place] tel:[phone] [facility] COVID TEST (chief complaint) Close exposure to 2019 novel coronavirus 1 No Information [facility], [address], [place], [place], [id number], [place] tel:[phone] [facility] Essential hypertension Prediabetes 1 No Information OFFICE/OUTPA TIENT VISIT, EST [facility], [address], [place], [place], [id number], [place] tel:[phone] [facility] abdominal pain (chief complaint) Right sided abdominal pain 3 1 Hailey Laguerre. [address] [place], [place], [id number], [place]. tel:[phone] [facility], [address], [place], [place], [id number], [place] tel:[phone] [facility] BP check (chief complaint) Proc/trtmt not crd out d/t pt lv bef [facility] prov 0 1 Hailey Laguerre. [address] [place], [place], [id number], [place]. tel:[phone] [facility], [address], [place], [place], [address], [place] tel:[phone] [facility] Essential hypertension Prediabetes 1 No Information Referring Provider: Carlotta Lara, [address] [place], [address] . tel:[phone] OFFICE/OUTPA TIENT VISIT, EST [facility], [address], [place], [place], [id number], [place] tel:[phone] [facility] hypertension (chief complaint)chr onic back pain (chief complaint) Chronic left-sided low back pain with left-sided sciaticaEsse ntial hypertension Fungal infection 1 Hailey Laguerre. [address] [place], [place], [address], [place]. tel:[phone] OFFICE/OUTPA TIENT VISIT, EST [facility], [address], [place], [place], [address], [place] tel:[phone] [facility] bp check (chief complaint) Essential hypertension 1 Hailey Laguerre. [address] [place], [place], [id number], [place]. tel:[phone] [facility], [address] [facility] [address], [place], [place], [address], [place] tel:[phone] [facility] covid test (chief complaint) Close exposure to 2019 novel coronavirus 1 No Information OFFICE/OUTPA TIENT VISIT, EST [facility], [address], [place], [place], [address], [place] tel:[phone] [facility] BP check (chief complaint)COV ID inquiry (chief complaint) Essential hypertension Cough 1 Hailey Laguerre. [address] [place], [place], [id number], [place]. 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 [address] [place], [place], [id number], [place]. tel:[phone] Optometry OFFICE/OUTPA TIENT VISIT, EST [facility], [address], [place], [place], [id number], [place] tel:[phone] [facility] OCT Follow up (chief complaint) Suspicious optic nerve cupping of both eyes Nov-0 0 Nicole Espino. [address], [place], [id number]. tel:[phone] [facility], [address], [place], [address], [place] tel:[phone] [facility] No Information Oct-2 - 0 No Information [facility], [address], [place], [place], [id number], [place] tel:[phone] [facility] Encounter for dental exam and cleaning w/o abnormal findings Oct-2 - 0 No Information [facility], [address] [place] [address] [address] [place] [address], [id number], [place] tel:[phone] [facility] No Information Oct-0 -202 0 No Information [facility], [address] [facility] [address], [place], [address], [place] tel:[phone] [facility] broken glasses and blurry vision (chief complaint) Hyperopia with presbyopia of both eyesSuspicio us optic nerve cupping of both eyesEncounte r for examination of eyes and vision with abnormal findings Oct-0 7-202 0 Naomy Peters. [address], [place], [id number], [place]. tel:[phone] [facility], [address] [facility] [address], [place], [address], [place] tel:[phone] [facility] Encounter for dental exam and cleaning w/o abnormal findings Oct-0 6-202 0 Ozzy Moreno. [address] [place], [place], [id number], [place]. tel:[phone] [facility], [address], [place], [address], tel:[phone] [facility] Encounter for dental exam and cleaning w/o abnormal findings Mar-- 0 No Information [facility], [address], [place], [place], [id number], tel:[phone] [facility] chronic conditions (chief complaint) Proc/trtmt not crd out d/t pt lv bef [facility] Feb- 0 Hailey Laguerre. [address] [place], [place], [id number], [place]. 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 [address] [place], [place], [address], [place]. tel:[phone] Family History Family Member Type Diagnosis Age [...] Record Payers Payer name Insurance type Covered constitution party ID Authoriza tion(s) [facility] [id number] [facility] [id number] [facility] C3 O [id number] Social History Type Description Quantity Date Captured Comments Alcohol Use Details Unknown Caffeine Use Details Unknown Tobacco Use Status No Information Smoking Status No Information Sex Female Chief Complaint And Reason For Visit No Information Reason For Referral Reason For Referral No Information Plan Of Treatment Date Type Action Status Goal Document SOGI Information. D ue on due Goal Pap/HPV testing. Due on due Goal FIT-DNA. Due on due Goal Td vaccine. Due on due Goal CT-Colonography. Due on due Goal LDL Cholesterol (Direct). Du e on due Goal Urinalysis. Due on due Goal Colonoscopy. Due on due Goal Tdap. Due on due Goal ECG. Due on due Goal Lipid panel. Due on 023 due Goal APE. Due on due Goal FOBT. Due on due Goal Unhealthy drug use screening . Due on due Goal Influenza vaccine. Due on due Goal Unhealthy drug use screening . Due on due Goal Diabetes screening. Due on due Goal APE. Due on due Goal Urinalysis. Due on due Goal Tdap. Due on due Goal Lipid panel. Due on 025 due Goal LDL Cholesterol (Direct). Du e [...] Goal Pap/HPV testing. Due on due Goal Urinalysis. Due on [...] Diabetes screening. Due on A due Goal Pap/HPV testing. Due on due Goal Document SOGI Information. D ue on due Goal Urinalysis. Due on due Goal Tdap. Due on due Goal Influenza vaccine. Due on due Goal Td vaccine. Due on due Goal APE. Due on due Goal Lipid panel. Due on due Goal LDL Cholesterol (Direct). Du e on due Goal ECG. Due on due Goal Diabetes screening. Due on A due Goal Lipid panel. Due on due [...] Goal Pap/HPV testing. Due on due Goal LDL Cholesterol (Direct). [...] SOGI Information. D ue on due Goal Diabetes screening. Due on due Goal Urinalysis. Due on due Goal Td vaccine. Due on due Goal Lipid panel. Due on due Goal LDL Cholesterol (Direct). Du e on due Goal Hepatitis C Screening due Goal Diabetes screening. Due on due Goal ECG. Due on due Goal Lipid panel. Due [...] Screening due Goal Diabetes screening. Due on ep due Goal APE. Due on due Goal [...] due Goal ECG. Due on due Goal APE. Due on due Goal Lipid panel. Due on due Goal Pap/HPV testing. Due on due Goal Tdap. Due on due Goal Hepatitis C Screening due Goal Diabetes screening. Due on due Goal Td vaccine. Due on due Goal Document SOGI Information. D ue on due Goal Diabetes screening. Due on due Goal Pap/HPV testing. Due on due Goal Document SOGI Information. D ue on due Goal Hepatitis C Screening due Goal Lipid panel. Due on due Goal APE. Due on due Goal LDL Cholesterol (Direct). Du e on due Goal Td vaccine. Due on [...] due Goal Urinalysis. Due on due Goal Lipid panel. Due on due Goal Influenza vaccine. Due on due Goal LDL Cholesterol (Direct). Du e on due Goal APE. Due on due Goal Hepatitis C Screening due Goal Tdap. Due on due Goal Pap/HPV testing. Due on due Goal ECG. Due on due Goal Diabetes screening. Due on due Goal Td vaccine. Due on due Goal Document SOGI Information. D ue on due Goal Urinalysis. Due on due Goal Lipid panel. Due on due Goal Document SOGI Information. D ue on due Goal Diabetes screening. Due on due Goal Pap/HPV testing. Due on due Goal LDL Cholesterol (Direct). Du e on due Goal Urinalysis. Due on due Goal APE. Due on due Goal Lipid panel. Due on due Goal Hepatitis C Screening due Goal Influenza vaccine. Due on due Goal Tdap. Due on due Goal ECG. Due on due Goal Td vaccine. Due on due Goal Hepatitis C Screening due Goal ECG. Due on due Goal LDL Cholesterol (Direct). Du e on due Goal Lipid panel. Due on due Goal Td vaccine. Due on due Goal Document SOGI Information. D ue on due Goal Diabetes screening. Due on [...] on due Goal Urinalysis. Due on due Referral Ordered: Referrals: Orthopedics Appointment date/timeframe: [...] criteria of cohort currently sanctioned by [facility]. Contraindications and risk factors assessed. Patient's questions answered. covid vax Patient presents in [place] for COVID vaccine. Patient meets criteria of cohort currently sanctioned by [facility]. Contraindications and risk factors assessed. Patient's [...] U C w/concern about back pain. 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 [...] had X ray in the past in [place] Now that she is working she is [...] her ADL. BP check Last visit in [facility], patient BP not at goal since she [...] She has a BP machine at home. 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 NICANOR 2.5 years ago in [place] and were given the glasses that are currently burning. Pt denies: flashes, floaters, burning, itching, and redness. 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 [facility] : 2 months in [place], before that she was in [place] for 6 months Previous medical care in the [facility]: She had a doctor in [place] that she saw once, but she had no f/u appt.'s after that. PMH: HTN, Asthma ( intermittent), Migraines, Circulatory issues, high cholesterolPSH: Gallbladder removal in 2016 in [place]. Medication hx - Losartan 100 mg once a day - but ? increase of the medication was planned. - chlorthalidone 25- atorvastatin - dosage unknown Central ( for circulation- given in [place], but was damaging her kidneys so she [...]
--- NOTE | ~2024-11-26 | XR_ITS ---
CLINICAL HISTORY: fall pain 3 view right ankle Comparison: None provided Findings: No acute fractures. Ankle mortise intact. Mild soft tissue edema diffusely. No ankle effusion. No radiopaque foreign body. IMPRESSION: No fracture. Mild soft tissue edema. This document has been electronically signed by: Ramos Terrazas MD on 11/26/2024 21:44:55
--- NOTE | ~2024-11-26 | XR_ITS ---
CLINICAL HISTORY: fall pain 3 view right foot Comparison: None provided Findings: Bones intact. No dislocations. Soft tissue edema dorsally. No ankle effusion. Calcaneal spurs are present. IMPRESSION: 1. No acute findings. This document has been electronically signed by: Ramos Terrazas MD on 11/26/2024 21:44:21
[2024-11-26 20:43] VITALS: BP 159/94; PULSE 74; RESP 16; TEMP 36.2; O2SAT 99; BMI 52.3
== END 2024-11-27 00:53 | disposition left against medical advice (07) ==
PROVIDERS: Emergency Provider Emergency Medicine; PCP Dentist General Practice
DX: M54.6 Pain in thoracic spine (principal); M79.671 Pain in right foot
CPT/HCPCS: 73610; 73620; 99281

== ENCOUNTER 2024-11-27 13:49 | Emergency (ER) | payer MEDICAID, SELFPAY ==
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
[2024-11-27 14:26] VITALS: BP 155/76; PULSE 68; RESP 16; TEMP 36.4; O2SAT 97; BMI 52.3
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
[2024-11-27 17:01] VITALS: BP 155/76; PULSE 68; RESP 16; TEMP 36.4; O2SAT 97
--- OUTSIDE RECORDS SUMMARY | 2024-11-27 18:05 | XMS_ITS | Clinical Summary ---
Author Organization [facility] Address [address] [place] [address] Care Team Providers Care Dust Collector Name Role Phone Unavailable Primary Care Provider [...]
== END 2024-11-27 16:00 | disposition home or self-care (01) ==
PROVIDERS: Emergency Provider Emergency Medicine
DX: S93.401A Sprain of unspecified ligament of right ankle, initial encounter (principal); R07.81 Pleurodynia; X58.XXXA Exposure to other specified factors, initial encounter; Y93.9 Activity, unspecified; Y92.9 Unspecified place or not applicable; Y99.8 Other external cause status
CPT/HCPCS: 71101; 99283

== ENCOUNTER → 2024-11-27 14:39 | Outpatient (BNV) | payer MEDICAID, SELFPAY | PROVIDERS: Emergency Provider Emergency Medicine; Visit Provider Radiology Diagnostic Radiology | DX: R07.89 Other chest pain (principal) | CPT/HCPCS: 71101 ==

== ENCOUNTER 2025-02-13 17:14 | Emergency (ER) | payer MEDICAID, SELFPAY ==
--- OUTSIDE RECORDS SUMMARY | 2022-06-09 10:03 | XMS_ITS | Continuity of Care Document ---
Author Organization [facility] Address [address] [place] [address] Phone Care Team Providers Care Administrative Office Manager Name Role Phone Carlotta Mcghee CNP Unavailable Unavail able Allergies, Adverse Reactions, Alerts Substance Reaction Status Criticality No Known Allergies Active No Inform ation Medications Medication Instructions Dosage Effective Dates (start - stop) Status Comments ATORVASTATIN 20 MG TABLET TOME IAN TABLE TA [facility] - Active diclofenac 1 % topical gel [...] POTASSIUM 100 MG TAB TOME IAN [facility] - Active HYDROCHLOROTHIAZIDE 12.5 MG CP TOME IAN [facility] - Active lidocaine 5 % [...] Diagnoses Date Provider Providers Copied on Encounter [facility], [address] [place] [address] 2,[address], [place], [place], [id number], tel:[phone] [facility] No Information 3 Hailey Laguerre. [address] [place], [place], [id number], [place]. tel:[phone] OFFICE/OUTPA TIENT VISIT, EST [facility], [address], [place], [place], [address], [place] tel:[phone] [facility] paperwork request (chief complaint) Housing lack 1 Hailey Laguerre. [address] [place], [place], [id number], [place]. tel:[phone] [facility], [address], [place], [place], [address], [place] tel:[phone] [facility] No Information 1 Hailey Laguerre. [address] [place], [place], [id number], [place]. tel:[phone] OFFICE/OUTPA TIENT VISIT, EST [facility], [address], [place], [place], [address], [place] tel:[phone] [facility] knee pain (chief complaint) Right knee pain, unspecified chronicity 1 Hailey Laguerre. [address] [place], [place], [id number], [place]. tel:[phone] [facility], [address], [place], [place], [id number], [place] tel:[phone] [facility] Knee pain. (chief complaint) Proc/trtmt not crd out d/t pt lv bef seen by [facility] prov 1 Hailey Laguerre. [address] [place], [place], [id number], [place]. tel:[phone] OFFICE/OUTPA TIENT VISIT, [facility], [address], [place], [place], [id number], [place] tel:[phone] [facility] covid vax (chief complaint) Encounter for immunization 1 No Information [facility], [address] [place] [address] 2,[address], [place], [place], [address], [place] tel:[phone] [facility] Right knee pain, unspecified chronicity 1 El Myers. [address] [place], [place], [address], [place]. tel:[phone] OFFICE/OUTPA TIENT VISIT, [facility], [address], [place], [place], [address], [place] tel:[phone] [facility] covid vax (chief complaint) Encounter for immunization 1 No Information OFFICE/OUTPA TIENT VISIT, [facility], [address], [place], [place], [id number], [place] tel:[phone] [facility] right knee pain and left elbow pain (chief complaint)cou gh (chief complaint) Right knee pain, unspecified chronicityLe ft elbow painCough 1 [place]. [address] [place], [place], [address], [place]. 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 [address] [place], [place], [id number], [place]. tel:[phone] [facility], [address], [place], [place], [address], [place] tel:[phone] [facility] No Information 1 Hailey Laguerre. [address] [place], [place], [id number], [place]. tel:[phone] [facility], [address] [facility] [address], [place], [place], [address], [place] tel:[phone] [facility] Acute right-sided thoracic back pain 1 Alberto Smith. [address] [place], [place], [id number]. tel:[phone] OFFICE/OUTPA TIENT VISIT, EST [facility], [address] [facility] [address], [place], [place], [address], [place] tel:[phone] [facility] back pain. (chief complaint) Acute right-sided thoracic back painRib pain on right side 1 Boy Fraga. [address] [place], [place], [id number]. tel:[phone] [facility], [address] [facility] [address], [place], [place], [address], [place] tel:[phone] [facility] COVID TEST (chief complaint) Close exposure to 2019 novel coronavirus 1 No Information [facility], [address], [place], [place], [address], [place] tel:[phone] [facility] Essential hypertension Prediabetes 1 No Information OFFICE/OUTPA TIENT VISIT, EST [facility], [address], [place], [place], [address], [place] tel:[phone] [facility] abdominal pain (chief complaint) Right sided abdominal pain 3 1 Hailey Laguerre. [address] [place], [place], [id number], [place]. tel:[phone] [facility], [address], [place], [place], [address], [place] tel:[phone] [facility] BP check (chief complaint) Proc/trtmt not crd out d/t pt lv bef seen by [facility] care prov 0 1 Hailey Laguerre. [address] [place], [place], [address], [place]. tel:[phone] [facility], [address], [place], [place], [address], [place] tel:[phone] [facility] Essential hypertension Prediabetes 1 No Information Referring Provider: Carlotta Lara, [address] [place], [address] . tel:[phone] OFFICE/OUTPA TIENT VISIT, EST [facility], [address], [place], [place], [address], [place] tel:[phone] [facility] hypertension (chief complaint)chr onic back pain (chief complaint) Chronic left-sided low back pain with left-sided sciaticaEsse ntial hypertension Fungal infection 1 Hailey Laguerre. [address] [place], [place], [id number], [place]. tel:[phone] OFFICE/OUTPA TIENT VISIT, EST [facility], [address], [place], [place], [address], [place] tel:[phone] [facility] bp check (chief complaint) Essential hypertension 1 Hailey Laguerre. [address] [place], [place], [address], [place]. tel:[phone] [facility], [address] [facility] [address], [place], [place], [address], [place] tel:[phone] [facility] covid test (chief complaint) Close exposure to 2019 novel coronavirus 1 No Information OFFICE/OUTPA TIENT VISIT, EST [facility], [address], [place], [place], [address], [place] tel:[phone] [facility] BP check (chief complaint)COV ID inquiry (chief complaint) Essential hypertension Cough 1 Hailey Laguerre. [address] [place], [place], [address], [place]. tel:[phone] PREV VISIT, EST, AGE 40-64 [facility], [address] 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 [address] [place], [place], [address], [place]. tel:[phone] Optometry OFFICE/OUTPA TIENT VISIT, EST [facility], [address] [facility], [place], [place], [address], [place] tel:[phone] [facility] OCT Follow up (chief complaint) Suspicious optic nerve cupping of both eyes Nov-0 0 Nicole Espino. [address] [place], [place], [id number]. tel:[phone] [facility], [address] [facility] [address], [place], [address], [place] tel:[phone] [facility] No Information Oct-2 - 0 No Information [facility], [address] [facility], [place], [place], [id number], [place] tel:[phone] [facility] Encounter for dental exam and cleaning w/o abnormal findings Oct-2 - 0 No Information [facility], [address] [place] [address] [address] [place] [address], [id number], [place] tel:[phone] [facility] No Information Oct-0 -202 0 No Information [facility], [address] [facility] [address], [address], [place] tel:[phone] [facility] broken glasses and blurry vision (chief complaint) Hyperopia with presbyopia of both eyesSuspicio us optic nerve cupping of both eyesEncounte r for examination of eyes and vision with abnormal findings Oct-0 7-202 0 Naomy Peters. [address] [place], [place], [address], [place]. tel:[phone] [facility], [address] [facility] [address], [place], [address], [place] tel:[phone] [facility] Encounter for dental exam and cleaning w/o abnormal findings Oct-0 6-202 0 Ozzy Moreno. [address] [place], [place], [address], [place]. tel:[phone] [facility], [address], [place], [address], tel:[phone] [facility] Encounter for dental exam and cleaning w/o abnormal findings Mar-- 0 No Information Chace Bruno [facility], [address], [place], [place], [address], tel:[phone] [facility] chronic conditions (chief complaint) Proc/trtmt not crd out d/t pt lv bef seen by [facility] prov Feb- 0 Hailey Laguerre. [address] [place], [place], [id number], [place]. 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 [address] [place], [place], [id number], [place]. tel:[phone] Family History Family Member Type Diagnosis Age [...] Record Payers Payer name Insurance type Covered republican ID Authoriza tion(s) [employer] C3 A[employer] [id number] [employer] [id number] [employer] C3 O [id number] Social History Type Description Quantity Date Captured Comments Alcohol Use Details Unknown Caffeine Use Details Unknown Tobacco Use Status No Information Smoking Status No Information Sex Female Chief Complaint And Reason For Visit No Information Reason For Referral Reason For Referral No Information Plan Of Treatment Date Type Action Status Goal APE. Due on due Goal Tdap. Due on due Goal Document SOGI Information. D ue on due Goal Lipid panel. Due on due Goal Influenza vaccine. Due on due Goal Unhealthy drug use screening . Due on due Goal CT-Colonography. Due on due Goal FIT-DNA. Due on due Goal Td vaccine. Due on due Goal Pap/HPV testing. Due on due Goal Colonoscopy. Due on due Goal FOBT. Due on due Goal Urinalysis. Due on due Goal LDL Cholesterol (Direct). Du e on due Goal ECG. Due on due Goal Unhealthy drug use screening . Due on due Goal APE. Due on due Goal Lipid panel. Due on 025 due Goal Td vaccine. Due on due Goal Document SOGI Information. D ue on due Goal Pap/HPV testing. Due on due Goal Influenza vaccine. Due on due Goal Tdap. Due on due Goal Urinalysis. Due on due Goal ECG. Due on due Goal LDL Cholesterol (Direct). Du e on due Goal Diabetes screening. Due on due Goal Lipid panel. Due [...] Cholesterol (Direct). Du e on due Goal Diabetes screening. Due on S due Goal Diabetes screening. Due on A due Goal Urinalysis. Due on due Goal LDL Cholesterol (Direct). Du e on due Goal Pap/HPV testing. Due on due Goal Tdap. Due on due Goal Influenza vaccine. Due on due Goal Td vaccine. Due on due Goal Document SOGI Information. D ue on due Goal APE. Due on due Goal Lipid panel. Due on due Goal ECG. Due on due Goal Urinalysis. Due on due Goal Diabetes screening. Due on A due Goal ECG. Due on due Goal [...] Goal Td vaccine. Due on due Goal Tdap. Due on due Goal Influenza vaccine. Due on due Goal Lipid panel. Due on due Goal APE. Due on due Goal Urinalysis. Due on due Goal ECG. Due on due Goal LDL Cholesterol (Direct). Du e on due Goal Diabetes screening. Due on A due Goal Document SOGI Information. D ue on due Goal Pap/HPV testing. Due on due Goal APE. Due on due Goal Hepatitis C Screening due Goal Document SOGI Information. D ue on due Goal Influenza vaccine. Due on due Goal Lipid panel. Due on due Goal Td vaccine. Due on due Goal Tdap. Due on due Goal ECG. Due on due Goal Urinalysis. Due on due Goal LDL Cholesterol (Direct). Du e on due Goal Diabetes screening. Due on due Goal Tdap. Due on due Goal Influenza vaccine. Due on due Goal APE. Due on due Goal Pap/HPV testing. Due on due Goal Document SOGI Information. D ue on due Goal Td vaccine. Due on due Goal Lipid panel. Due on due Goal Hepatitis C Screening due Goal ECG. Due on due Goal Urinalysis. Due on due Goal LDL Cholesterol (Direct). Du e on due Goal Diabetes screening. Due on due Goal Lipid panel. Due on due Goal Document SOGI Information. D ue on due Goal Td vaccine. Due on due Goal Influenza vaccine. Due on due Goal Tdap. Due on due Goal Hepatitis C Screening due Goal Pap/HPV testing. Due on due Goal APE. Due on due Goal ECG. Due on due Goal Urinalysis. Due on due Goal LDL Cholesterol (Direct). Du e on due Goal Diabetes screening. Due on due Goal Document SOGI Information. D ue on due Goal Hepatitis C Screening due Goal Lipid panel. Due on due Goal Pap/HPV testing. Due on due Goal Influenza vaccine. Due on due Goal APE. Due on due Goal Tdap. Due on due Goal Td vaccine. Due on due Goal ECG. Due on due Goal Urinalysis. Due on due Goal LDL Cholesterol (Direct). Du e on due Goal Diabetes screening. Due on [...] due Goal ECG. Due on due Goal Urinalysis. Due on due Goal Diabetes screening. Due on due Goal Pap/HPV testing. Due on due Goal Document SOGI Information. D ue on due Goal Hepatitis C Screening due Goal Lipid panel. Due on due Goal APE. Due on due Goal Td vaccine. Due on due Goal Influenza vaccine. Due on due Goal Tdap. Due on due Goal LDL Cholesterol (Direct). Du e on due Goal ECG. Due on due Goal Urinalysis. Due on due Goal Diabetes screening. Due on due Goal Lipid panel. Due on due Goal LDL Cholesterol (Direct). Du e on due Goal ECG. Due on due Goal Urinalysis. Due on due Goal Diabetes screening. Due on due Goal Pap/HPV testing. Due on due Goal Document SOGI Information. D ue on due Goal Hepatitis C Screening due [...] Goal Pap/HPV testing. Due on due Goal Influenza vaccine. Due on due Goal APE. Due [...] SOGI Information. D ue on due Goal ECG. Due on due Goal LDL Cholesterol (Direct). Du e on due Goal Urinalysis. Due on due Goal Diabetes screening. Due on due Goal Pap/HPV testing. Due on due Goal Lipid panel. Due on due Goal Influenza vaccine. Due on due Goal APE. Due on due Goal Tdap. Due on due Goal Td vaccine. Due on due Goal Document SOGI Information. D ue on due Goal LDL Cholesterol (Direct). Du e on due Goal ECG. Due on due Goal Urinalysis. Due on [...] meets criteria of cohort currently sanctioned by [facility]. Contraindications and risk factors assessed. Patient's questions answered. covid vax Patient presents in NAD for COVID vaccine. Patient meets criteria of cohort currently sanctioned by [facility]. Contraindications and risk factors assessed. Patient's [...] U C w/concern about back pain. Used interpreter for the deaf for visit.Pt reports back pain for 2mo. [...] had X ray in the past in [place] Now that she is working she is [...] her ADL. BP check [facility], patient BP not at goal since she [...] She has a BP machine at home. 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 NICANOR 2.5 years ago in [place] and were given the glasses that are currently burning. Pt denies: flashes, floaters, burning, itching, and redness. 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 PMH: HTN, Asthma ( intermittent), Migraines, Circulatory issues, high cholesterolPSH: Gallbladder removal in 2016 in [place]. Medication hx - Losartan 100 mg once a day - but ? increase of the medication was planned. - chlorthalidone 25- atorvastatin - dosage unknown Central ( for circulation- given in [place], but was damaging her kidneys so she [...]
--- NOTE | ~2025-02-13 | XR_ITS ---
CLINICAL HISTORY: left sided chest pain 2 view chest x-ray Comparison: CR/OH - XR CHEST 1V - 11/10/24 09:54 EDT Findings: The lungs are clear. Similar prominent/enlarged cardiac silhouette. No acute fracture. IMPRESSION: 1. No acute findings. This document has been electronically signed by: Addy Kelly MD on 02/13/2025 18:13:49
[2025-02-13 17:26] VITALS: BP 210/100; PULSE 71; RESP 16; TEMP 36.6; O2SAT 98; BMI 48.7
--- NOTE | 2025-02-13 17:39 | ECG_ITS ---
Test Reason : L SIDED CP Blood Pressure : */* mmHG Vent. Rate : 58 BPM Atrial Rate : 58 BPM P-R Int : 150 ms QRS Dur : 82 ms QT Int : 420 ms P-R-T Axes : 36 -30 15 degrees QTcB Int : 412 ms Sinus bradycardia Left axis deviation Moderate voltage criteria for LVH, may be normal variant ( R in aVL , Too product ) Cannot rule out Anterior infarct , age undetermined Abnormal ECG When compared with ECG of 14-Sep-2024 11:51, Nonspecific T wave abnormality no longer evident in Lateral leads Referred By: Ce Henderson Electronically Signed By: MICHAEL OATES MD
[2025-02-13 17:58] LABS: Hematocrit 39.3 % (37.0-47.0); Hemoglobin 12.9 g/dl (12.0-16.0); Imm Gran Abs Auto 0.28 X10*3/uL (0.00-0.03); Imm Gran Pct Auto 1.8 % (0.0-0.4); Lymphocytes Absolute Auto 1.5 X10*3/uL (1.2-4.9); MANUAL DIFF FLAG SCAN; Mean Corpuscular HGB Conc 32.8 g/dl (31.0-35.0); Mean Corpuscular Hemoglobin 29.3 pg (27.0-33.0); Mean Corpuscular Volume 89.3 fL (80.0-98.0); NRBC Abs Auto 0.000 X10*3/uL (0.0-0.012); NRBC Pct Auto 0.0 /100WBC (0.0-0.2); Platelet Count 250 X10*3/uL (160-400); Red Blood Count 4.40 X10*6/uL (4.20-5.50); SCAN SMEAR FLAG 1; White Blood Count 15.6 X10*3/uL (4.8-10.8)
[2025-02-13 18:10] LABS: Alanine Aminotransferase 50 U/L (0-31); Albumin Level 4.1 g/dL (3.5-5.0); Alkaline Phosphatase 91 U/L (39-117); Anion Gap 11 (12-20); Aspartate Amino Transferase 27 U/L (5-31); Blood Urea Nitrogen 11 mg/dL (9-16); Calcium 8.4 mg/dL (8.4-10.2); Carbon Dioxide 28 mmol/L (22-29); Chloride 107 mmol/L (96-108); Creatinine Clr Calc Pharmacy 116.4; Estimated Glomerular Filt Rate > 60; Lipase 20 U/L (8-78); Magnesium 2.0 mg/dL (1.6-2.6); Potassium 3.5 mmol/L (3.3-5.1); Sodium 142 mmol/L (135-145); Total Protein 7.3 g/dL (6.5-8.0)
[2025-02-13 18:13] LABS: Troponin-I High Sensitivity 4.7 ng/L (<3.5-17.0)
--- NOTE | 2025-02-13 18:59 | ED.GENADULT ---
HPI - General Adult General Chief complaint: General Medical Stated complaint: left side breast to armpit pain (2wks) Time Seen by Provider: 02/13/25 22:09 Source: patient Limitations: language barrier History of Present Illness ED Provider: Tisha Reed PA-C HPI narrative: 49-year-old female with a history of morbid obesity, hypertension, asthma, who presents with left breast pain x2 weeks. Pain is generalized. Denies abnormal discharge from the nipple, redness, warmth, swelling, new palpable mass. Denies fever, or pain in the left axilla. Patient is not currently breast-feeding. Related Data Previous Rx's ?Medication ?Instructions ?Recorded miconazole nitrate 2 % vaginal 1 appful vaginal BEDTIME 7 days 02/07/22 cream #45 grams nitrofurantoin 100 mg PO Q12H 5 days #10 caps 02/07/22 monohydrate/macrocrystals 100 mg capsule (Macrobid) albuterol sulfate 90 mcg/actuation 2 inh inhalation Q4-6H PRN 05/13/22 breath activated powder inhaler shortness of breath or wheezing #1 ea prednisone 20 mg tablet 40 mg (2 x 20 mg) PO DAILY 5 days 05/13/22 #10 tabs phenazopyridine 200 mg tablet 200 mg PO TID PRN pain 6 doses #6 09/07/22 (Pyridium) tabs sulfamethoxazole 800 1 tab PO BID #10 tabs 09/07/22 mg-trimethoprim 160 mg tablet (Bactrim DS) acetaminophen 500 mg tablet 1,000 mg (2 x 500 mg) PO QID PRN 08/27/23 pain #30 tabs cyclobenzaprine 5 mg tablet 5 mg PO TID PRN muscle spasm #14 08/27/23 tabs ibuprofen 600 mg tablet 600 mg PO Q6H PRN pain #20 tabs 08/27/23 albuterol sulfate 2.5 mg/0.5 mL 5 mg inhalation Q6H PRN shortness 01/29/24 solution for nebulization of breath or wheezing #30 ea prednisone 20 mg tablet 40 mg (2 x 20 mg) PO DAILY #10 tabs 01/29/24 nitrofurantoin 100 mg PO Q12H 7 days #14 caps 09/14/24 monohydrate/macrocrystals 100 mg capsule (Macrobid) prednisone 20 mg tablet 40 mg (2 x 20 mg) PO DAILY #10 tabs 11/10/24 cyclobenzaprine 10 mg tablet 10 mg PO TID PRN muscle spasm #10 11/27/24 tabs lidocaine 5 % topical patch 1 patch topical DAILY #15 ea 11/27/24 Allergies Allergy/AdvReac Type Severity Reaction Status Date / Time No Known Allergies Allergy Verified 02/13/25 17:36 Review of Systems Review of Systems: Yes all other systems are reviewed and are negative Constitutional: Constitutional: Denies fatigue and Denies fever(s) Cardiovascular: Cardiovascular: Denies chest pain and Denies dyspnea Respiratory: Respiratory: Denies dyspnea Gastrointestinal: Gastrointestinal: Denies abdominal pain Integumentary/Breasts: Skin/Breast: Denies breast swelling, Denies breast skin changes, Reports breast pain, Denies breast mass and Denies change in breast shape Endocrine: Endocrine: Denies fatigue PMF Past Medical History Attestation statement: The following information was validated with the patient. Medical History Hypertension Social History Social History Unable to assess alcohol history related to: Unknown Patient Tobacco Use Status: Never used Tobacco Advance Directives: No Advance Directives Information Provided: Yes Physical Exam ED Vital Signs: Vital Signs - 24 hr 02/13/25 17:26 02/13/25 21:02 02/13/25 22:59 Temperature 97.9 F 97 F 97 F Pulse Rate 71 75 70 Respiratory Rate 16 16 17 Blood Pressure 210/100 H 218/114 H 207/83 H Pulse Oximetry 98 98 98 Oxygen Delivery Method Room Air Room Air Room Air 02/13/25 23:08 Temperature 97 F Pulse Rate 70 Respiratory Rate 17 Blood Pressure 207/83 H Pulse Oximetry 98 Oxygen Delivery Method Room Air BMI result Body Mass Index 48.7 Const Other: Alert Orientation/consciousness: patient oriented x3 Chest Other: There was no size difference of the left breast when compared to the right. There is no discharge from the nipple. There was no overlying warmth, erythema or swelling over the breast. There are no palpable masses. There are no skin changes or puckering of the areola. Resp Effort & Inspection: normal respiratory effort Cardio Other: Normal peripheral perfusion Skin Other: Warm dry no rash Neuro General: patient oriented x3, gait normal, no focal motor deficits and CN's II-XI intact bilaterally Extrem Other: No palpable lymphadenopathy in the left axilla Psych Other: Cooperative Course Course Course Narrative: This is a Rapid Medical Examination (RME) performed by Lizzeth Henderson PA-C in triage. Full HPI, ROS, assessment and treatment plan per primary provider in the Main ED. Hx: 49 yo F here for eval of pain to left breast/ chest wrapping around to back. no injury/trauma. Plan: labs, ekg, cxr Medications Administered Discontinued Medications Generic Name Dose Route Start Last Admin Trade Name Freq PRN Reason Stop Dose Admin Acetaminophen 650 mg 02/13/25 20:58 02/13/25 21:06 Acetaminophen 325 Mg Tablet PO 02/13/25 20:59 650 mg ONCE ONE Administration Medical Decision Making Medical Decision Making [facility] Narrative: 49-year-old female with a history of morbid obesity, hypertension, asthma, who presents with left breast pain x2 weeks. Pain is generalized. Denies abnormal discharge from the nipple, redness, warmth, swelling, new palpable mass. Denies fever, or pain in the left axilla. Patient is not currently breast-feeding. Problem: Morbid obesity History: Per patient I have considered the following differential diagnoses: Mass/cancer, mastitis, cellulitis, purulent cellulitis, abscess Plan: Screening labs were obtained, a chest x-ray was obtained, there were no external signs of infection. The patient requires a mammogram as an outpatient. To note, the patient is noted to be hypertensive, however she is due for her evening medication, but she should have already taken. I have independently reviewed the following tests: Labs: Leukocytosis, not anemic, no electrolyte abnormality, not Chest x-ray:indings: The lungs are clear. Similar prominent/enlarged cardiac silhouette. No acute fracture. IMPRESSION: 1. No acute findings. Differential Diagnosis Differential Diagnoses: The differential diagnosis associated with the presentation includes See medical decision-making Admission/Observation Consideration of admission/observation: Escalation of care including admission/observation considered Not applicable Lab Data [facility] Lab Attestation statement: I reviewed the patient's lab results. 02/13/25 17:47 02/13/25 17:47 Labs: Lab Results 02/13/25 Range/Units 17:47 WBC 15.6 H (4.8-10.8) X10*3/uL RBC 4.40 (4.20-5.50) X10*6/uL Hgb 12.9 (12.0-16.0) g/dl Hct 39.3 (37.0-47.0) % MCV 89.3 (80.0-98.0) fL MCH 29.3 (27.0-33.0) pg MCHC 32.8 (31.0-35.0) g/dl RDW 14.1 (11.0-16.0) % Plt Count 250 (160-400) X10*3/uL MPV 11.5 (9.4-12.3) fL Immature Gran % (Auto) 1.8 H (0.0-0.4) % Neut % (Auto) 78.5 H (45-73) % Lymph % (Auto) 9.3 L (20-40) % Hayes % (Auto) 10.1 (2-11) % Eos % (Auto) 0.0 (0-4) % Baso % (Auto) 0.3 (0-2) % Lymph # (Auto) 1.5 (1.2-4.9) X10*3/uL Hayes # (Auto) 1.6 H (0.1-1.2) X10*3/uL Eos # (Auto) 0.0 (0.0-0.4) X10*3/uL Baso # (Auto) 0.0 (0.0-0.2) X10*3/uL Abs Immat Gran (auto) 0.28 H (0.00-0.03) X10*3/uL Absolute Neuts (auto) 12.2 H (2.0-8.3) x10*3/uL Absolute Nucleated RBC 0.000 (0.0-0.012) X10*3/uL Nucleated RBC % (auto) 0.0 (0.0-0.2) /100WBC Smear Tech's Comments VERIFIED Sodium 142 (135-145) mmol/L Potassium 3.5 (3.3-5.1) mmol/L Chloride 107 (96-108) mmol/L Carbon Dioxide 28 (22-29) mmol/L Anion Gap 11 L (12-20) BUN 11 (9-16) mg/dL Creatinine 0.88 (0.5-1.4) mg/dL Estim Creat Clear Calc 116.4 Estimated GFR > 60 Random Glucose 143 H (60-115) mg/dL Calcium 8.4 (8.4-10.2) mg/dL Magnesium 2.0 (1.6-2.6) mg/dL Total Bilirubin 0.2 (0.0-1.0) mg/dL AST 27 (5-31) U/L ALT 50 H (0-31) U/L Alkaline Phosphatase 91 (39-117) U/L Troponin I High Sens 4.7 D (<3.5-17.0) ng/L Total Protein 7.3 (6.5-8.0) g/dL Albumin 4.1 (3.5-5.0) g/dL Lipase 20 (8-78) U/L Beta HCG, Quant < 2 mIU/mL Radiology Impression Discussion of test interpretation with radiology: I have reviewed the radiologist's reading. Discharge Plan Discharge Clinical Impression: Pain of left breast Patient Disposition: Home, Self-Care Additional Instructions: You need to have a mammogram as an outpatient, call your primary care provider tomorrow to schedule an appointment. There was no evidence of infection on exam. Prescriptions: No Action albuterol sulfate 90 mcg/actuation aerosol powdr breath activated 2 inh inhalation Q4-6H PRN (Reason: shortness of breath or wheezing) Qty: 1 0RF prednisone 20 mg tablet 40 mg PO DAILY 5 Days Qty: 10 0RF miconazole nitrate 2 % cream 1 appful vaginal BEDTIME 7 Days Qty: 45 0RF nitrofurantoin monohyd/m-cryst [Macrobid] 100 mg capsule 100 mg PO Q12H 5 Days Qty: 10 0RF Rx Instructions: must administer with a meal/food sulfamethoxazole-trimethoprim [Bactrim DS] 800-160 mg tablet 1 tab PO BID Qty: 10 0RF phenazopyridine [Pyridium] 200 mg tablet 200 mg PO TID PRN (Reason: pain) Qty: 6 0RF prednisone 20 mg tablet 40 mg PO DAILY Qty: 10 0RF albuterol sulfate 2.5 mg/0.5 mL solution for nebulization 5 mg inhalation Q6H PRN (Reason: shortness of breath or wheezing) Qty: 30 0RF prednisone 20 mg tablet 40 mg PO DAILY Qty: 10 0RF acetaminophen 500 mg tablet 1,000 mg PO QID PRN (Reason: pain) Qty: 30 0RF ibuprofen 600 mg tablet 600 mg PO Q6H PRN (Reason: pain) Qty: 20 0RF cyclobenzaprine 5 mg tablet 5 mg PO TID PRN (Reason: muscle spasm) Qty: 14 0RF nitrofurantoin monohyd/m-cryst [Macrobid] 100 mg capsule 100 mg PO Q12H 7 Days Qty: 14 0RF Rx Instructions: must administer with a meal/food lidocaine 5 % adhesive patch,medicated 1 patch topical DAILY Qty: 15 0RF Rx Instructions: leave on most painful area for up to 12 hrs cyclobenzaprine 10 mg tablet 10 mg PO TID PRN (Reason: muscle spasm) Qty: 10 0RF Interventions: ED Discharge Assessment Last Done: 02/13/25 23:08 Discharge Date/Time: 02/13/25 23:12 Print Language: Japanese
[2025-02-13 21:02] VITALS: BP 218/114; PULSE 75; RESP 16; TEMP 36.1; O2SAT 98
--- OUTSIDE RECORDS SUMMARY | 2025-02-13 22:07 | XMS_ITS | Clinical Summary ---
Author Organization [address] [place] [address] Address [address] [place] [address] Phone Care Team Providers Care Beet Worker Name Role Phone Sarah Tobias Primary Care Provider [phone] Allergies No known active allergies Medications melatonin 10 mg capsule Active losartan-hydroC HLOROthiazide (HYZAAR) 100-25 mg per tablet Take 1 tablet by mouth 1 (one) time each day. 02/08/2024 Active metoprolol succinate (TOPROL-XL) 50 mg 24 hr tablet Take 1 tablet (50 mg total) by mouth 1 (one) time each day. 02/01/2024 Active montelukast (SINGULAIR) 10 mg tablet Take 1 tablet (10 mg total) by mouth at bedtime. 01/30/2024 Active omeprazole (PriLOSEC) [address] capsule Take 1 capsule (40 mg total) by mouth 1 (one) time each day. Active PARoxetine (PAXIL) 30 mg tablet Take 1 tablet (30 mg total) by mouth 1 (one) time each day in the morning. Active traZODone (DESYREL) 50 mg tablet Take 1 tablet (50 mg total) by mouth at bedtime. 03/28/2024 Active amLODIPine (NORVASC) 10 mg tablet Take 1 tablet (10 mg total) by mouth 1 (one) time each day. 02/08/2024 Active buPROPion XL (WELLBUTRIN XL) 150 mg 24 hr tablet Take 1 tablet (150 mg total) by mouth 1 (one) time each day. 08/02/2024 Active cetirizine (ZyrTEC) 10 mg tablet Take 1 tablet (10 mg total) by mouth 1 (one) time each day. 01/26/2024 Active cyclobenzaprine (FLEXERIL) 10 mg tablet Take 1 tablet (10 mg total) by mouth 3 (three) times a day if needed for muscle spasms. 11/27/2024 Active hydrALAZINE (APRESOLINE) 25 mg tablet Take 1 tablet (25 mg total) by mouth 3 (three) times a day. 10/03/2024 Active Advair Diskus 250-50 mcg/dose diskus inhaler Inhale 1 puff by mouth 2 (two) times a day. 08/06/2024 Active furosemide (LASIX) 20 mg tablet Take 1 tablet (20 mg total) by mouth 1 (one) time each day. 30 each 12/16/2024 Active Active Problems Problem Noted Date Diagnosed Date Bilateral lower extremity edema 12/16/2024 Assessment & Plan (12/16/2024 9:17 AM EDT): Suspect she has heart failure with preserved EF. Her lung exam not completely normal ands she also had lower extremity edema. Will start low-dose furosemide and obtain baseline labs. Will obtain records from [facility]. Chest pressure 04/13/2023 Overview (12/13/2024): Last Assessment & Plan: Is unclear whether this is anxiety/stress related/HTN. Given her body size, not able to exercise adequately on treadmill, will like to schedule a PET stress test for further evaluation. We will obtain a copy of her most recent blood test from the office, especially lipid panel. Assessment & Plan (12/16/2024 9:17 AM EDT): Chest pressure appears similar but more frequent lately. Stress test was ordered previously but not done for some reason. Will reschedule nuclear perfusion stress test. Orders: ECG 12 lead Exercise nuclear stress test with myocardial perfusion; Future Cardiomegaly 11/16/2022 Overview (12/13/2024): 08/08/23: echo done with pvc, 55-65% EF 10/18/22 ed cxr shows mild cardiomegaly , ekg with sinus bradycardia Hypertension 09/21/2021 Overview (12/13/2024): UNCONTROLLED Last Assessment & Plan: She has been requires 3 medications for hypertension and BP remains quite elevated. He was quite stressed after her son's unfortunately and those could play some role in her hypertension. I will add hydralazine 10 mg 3 times a day and uptitrating dosage accordingly based on her BP. We will arrange echocardiogram to assess LV function and structure, especially LVH. We will expect to significant LVH if she has persistent severe hypertension for a while. Assessment & Plan (12/16/2024 9:17 AM EDT): Will continue current regimen. We also discussed about obesity and lifestyle change, especially eating habit. She needs to stop eating chocolate. Encounters Date Type Department Care Team Description 12/25/2024 Telephone [facility] - [address] [facility] [address] [place] [id number] Yael Nathan chinchillacy 12/16/2024 7:50 AM EDT Office Visit [facility] [address] [place] [phone] Oscar Aguirre MD Chest pressure (Primary Dx); Bilateral leg edema; Bilateral lower extremity edema; Hypertension, unspecified type from Last 3 Months Medical History Medical History Date Comments HTN [...] Years Used Date Smoking Tobacco: Every Day Cigarettes Smokeless Tobacco: Never Tobacco Cessation:Ready to Q uit: Not Asked; Counseling Given: Not Answered Alcohol Use Standard Drinks/Week Comments Not Currently 0 (1 standard drink = 0.6 oz pur e alcohol) Comments Unknown Sex and Gender Information Value Date Recorded Sex Assigned at Not on file Legal Sex Female 11:07 AM EST Gender Identity Not on file Sexual Orientation Not on file Obstetrics History Last Filed Vital Signs Vital Sign Reading Time Taken Comments Blood Pressure 142/80 12/16/2024 7:48 AM EDT Pulse 62 12/16/2024 7:48 AM EDT Temperature - - Respiratory Rate - - Oxygen Saturation 99% 12/16/2024 7:48 AM EDT Inhaled Oxygen Concentration - - Weight 143 kg (315 lb) 12/16/2024 7:48 AM EDT Height 165.1 cm (5' 5 ) 12/16/2024 7:48 AM EDT Body Mass Index 52.42 12/16/2024 7:48 AM EDT Plan of Treatment Health Maintenance Due Date Last Done Comments Breast Cancer Screening 1974 Hepatitis B Vaccines (1 of 3 - 19+ 3-dose series) 1993 Cervical Cancer Screening: Pap Smear 10/08/1995 Colorectal Cancer Screening: Colonoscopy 05/03/2022 HIV Screening 05/03/2022 Social Influencers of Health Screening 05/03/2022 Depression Screening 06/05/2024 Zoster Vaccines (1 of 2) 2024 COVID-19 Vaccine ( - season) 2025 07/14/2022, 01/18/2021, 12/21/2020 Influenza Vaccine (#1) 2025 06/27/2024, 2022 Hypertension/CHF/CAD Annual BMP Blood Test 12/16/2025 12/16/2024, 12/14/2023 Pneumococcal Vaccine: 50+ Years (3 of 3 - PCV20 or PCV21) 01/18/2028 01/17/2023, 01/06/2022 Cholesterol Screening (Lipid Panel) 06/12/2029 06/12/2024, 06/12/2024, 01/17/2023, Additional history exists DTaP,Tdap,and Td Vaccines (2 - Td or Tdap) 01/07/2032 01/06/2022 Hepatitis C Screening Completed 01/17/2023 HIB Vaccines Aged Out No longer eligi [...] on patient's age to complete this topic Procedures Procedure Name Priority Date/Time Associated Diagnosis Comments BASIC METABOLIC PANEL Routine 12/16/2024 8:44 AM EDT Bilateral leg edema ECG 12-LEAD Routine 12/16/2024 7:56 AM EDT Chest pressure from Last 3 Months Results * Basic metabolic panel (12/16/2024 8:44 AM EDT) Sodium 140 133 - 145 mmol/L LAB CHEMISTRY METHOD 12/16/2024 12:35 PM [facility] Potassium 4.0 3.5 - 5.5 mmol/L LAB CHEMISTRY METHOD 12/16/2024 12:35 PM [facility] Chloride 104 96 - 110 mmol/L LAB CHEMISTRY METHOD 12/16/2024 12:35 PM [facility] CO2 32 21 - 32 mmol/L LAB CHEMISTRY METHOD 12/16/2024 12:35 PM [facility] Anion Gap 4 3 - 11 LAB CHEMISTRY METHOD 12/16/2024 12:35 PM [facility] Glucose 98 70 - 100 mg/dL LAB CHEMISTRY METHOD 12/16/2024 12:35 PM [facility] BUN 15 5 - 25 mg/dL LAB CHEMISTRY METHOD 12/16/2024 12:35 PM EDT [facility] Creatinine 0.78 0.50 - 1.10 mg/dL LAB CHEMISTRY METHOD 12/16/2024 12:35 PM EDT [facility] eGFR 93 >=60 mL/min/1. 73m2 LAB CHEMISTRY METHOD 12/16/2024 12:35 PM EDT [facility] Comment:Calculation based on the Chronic Kidney Disease Epidemiology Collaboration (CKD-EPI) equation refit without adjustment for race. BUN/Creatinine Ratio 19.2 LAB CHEMISTRY METHOD 12/16/2024 12:35 PM EDT [facility] Calcium 9.3 8.5 - 10.5 mg/dL LAB CHEMISTRY METHOD 12/16/2024 12:35 PM EDT [facility] Blood Venous blood specimen / Unknown Venipuncture / Unknown 12/16/2024 8:44 AM EDT 12/16/2024 9:46 AM EDT Oscar Aguirre MD LAB BLOOD ORDERABLES Final Resul t [facility] [address] [place] [address], * ECG 12 lead (12/16/2024 7:56 AM EDT) Ventricular Rate ECG 62 BPM GEMUSE Atrial Rate 62 BPM GEMUSE P-R Interval 154 ms GEMUSE QRS Duration 78 ms GEMUSE Q-T Interval 492 ms GEMUSE QTc 499 ms GEMUSE P Wave [place] 17 degrees GEMUSE R [place] -12 degrees GEMUSE T [place] -16 degrees GEMUSE ECG Interpretation Normal sinus rhythm Poor R wave progression Abnormal ECG When compared with ECG of 05-JUL-2023 19:54, No significant change was found Confirmed by Cam AGUIRRE, OSCAR ([id number]) on 12/16/2024 9:01:43 AM GEMUSE 12/16/2024 7:56 AM EDT 12/16/2024 9:01 AM EDT us Oscar Aguirre MD ECG ORDERABLES Final Result GEMUSE from Last 3 Months Insurance MEDICAID - [place] Care Teams Beet Worker Relationship Specialty Start Date End Date Sarah Tobias [address] [place] [address] PCP - General 12/16/24
--- OUTSIDE RECORDS SUMMARY | 2025-02-13 22:07 | XMS_ITS | Clinical Summary ---
Author Organization [facility] Address [address] [place] [address] Care Team Providers Care Supervisor Of Research Name Role Phone Sarah Tobias NP Primary Care Provider [phone] Source Comments PLEASE NOTE, if this patient [...] length of need 99 years 1 Kit 03/15/20 23 Active naproxen (NAPROSYN) 500 mg tabletIndication s:Calcaneal spur of foot, right,Plantar fasciitis Take 1 Tablet by mouth 2 (two) times daily with a meal 90 Tablet 1 10/03/19 24 Active cetirizine (ZYRTEC) 10 mg tabletIndication s:Seasonal allergies Take 1 Tablet by mouth once daily 90 Tablet 1 10/26/19 24 Active lidocaine (LIDODERM) 5 % patchIndications :Mid back pain,Chronic lumbosacral pain Place 1 Patch onto the skin once daily (every 24 hours) 30 Patch 2 02/09/20 24 Active traZODone (DESYREL) 50 mg tablet TAKE 1/2 TABLET BY MOUTH NIGHTLY AT BEDTIME FOR 180 DAYS 03/28/20 24 Active buPROPion XL (WELLBUTRIN XL) 150 mg 24 hr tabletIndication s: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, unspecified whether recurrent (CMS & HHS-HCC) Take 1 Tablet by mouth every morning for 180 days 90 Tablet 1 08/02/19 25 Active melatonin 5 mg tabIndications:G eneralized anxiety disorder Take 1 Tablet by mouth nightly at bedtime for 180 days 90 Tablet 1 08/02/19 25 Active PARoxetine (PAXIL) 30 mg tabletIndication s: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) Inhale 1 Puff into the lungs 2 (two) times daily 60 Each 2 08/07/19 25 Active montelukast (SINGULAIR) 10 mg tabletIndication s:Moderate persistent asthma without complication ([facility]) TOME 1 TABLETA POR VIA ORAL TODOS [place] CA[place] AL ACOSTARSE 90 Tablet 1 08/07/19 25 Active albuterol HFA 90 mcg/actuation inhalerIndicatio ns:Moderate persistent asthma without complication ([facility]) Inhale 2 Puffs into the lungs every 4 to 6 (four to six) hours as needed for shortness of breath or wheezing 18 g 2 08/07/19 25 Active acetaminophen (TYLENOL 8 HOUR) 650 mg CR tabletIndication s:Periumbilical abdominal pain,Ruptured cyst of ovary,Uterine leiomyoma, unspecified location Take 1 Tablet by mouth every 8 (eight) hours as needed for pain 42 Tablet 10/05/19 25 Active diclofenac sodium (VOLTAREN) 1 % gel Apply topically 2 (two) times daily. 100 g 3 12/10/19 25 Active amLODIPine (NORVASC) 10 mg tablet TOME IAN TABLETA TODOS LOS CAO. 90 Tablet 1 12/10/19 25 Active hydrALAZINE (APRESOLINE) 25 mg tabletIndication s:Resistant hypertension Take 1 Tablet by mouth 3 (three) times daily. 270 Tablet 1 12/10/19 25 Active losartan-hydroch lorothiazide (HYZAAR) 100-25 mg per tablet Take 1 Tablet by mouth once daily. 90 Tablet 1 12/10/19 25 Active metoprolol succinate XL (TOPROL-XL) 50 mg 24 hr tablet Take 1 Tablet by mouth once daily. 90 Tablet 1 12/10/19 25 Active compress.stockin g,knee,reg,medIn dications:Lower leg edema Please dispense 3 pairs of compression stockings 15 mmhg. 3 Each 1 12/10/19 25 Active furosemide (LASIX) 20 mg tablet Take 20 mg by mouth daily. 12/17/19 25 026 Active cyclobenzaprine (FLEXERIL) 10 mg tabletIndication s:Periumbilical abdominal pain,Ruptured cyst of ovary,Uterine leiomyoma, unspecified location Take 1 Tablet by mouth 3 (three) times daily as needed for muscle spasms. 30 Tablet 01/28/20 25 Active cyclobenzaprine (FLEXERIL) 10 mg tabletIndication s:Periumbilical abdominal pain,Ruptured cyst of ovary,Uterine leiomyoma, unspecified location Take 1 Tablet by mouth 3 (three) times daily as needed for muscle spasms 30 Tablet 10/05/19 25 025 Discontin ued(Reord er (E-Cancel Not Sent)) Active Problems Problem Noted Date Diagnosed Date Class 3 severe obesity due t o excess calories without serious comorbidity with body mass index (BMI) of 45.0 to 49.9 in adult ([facility]) 07/13/2023 Current severe episode of ma tram depressive disorder with psychotic features ([facility]) 05/30/2023 Generalized anxiety disorder 05/30/2023 Complicated grief 05/30/2023 Prediabetes 01/18/2023 Overview (01/18/2023): Lab Results Component Value Date HGBA1C 5.8 (H) 01/17/2023 HGBA1C 5.9 (H) 09/21/2021 Cardiomegaly 11/16/2022 Overview (12/09/2024): 12/09/24: has been unable to get an appt with cardio, 08/08/23: echo done with pvc, 55-65% EF 10/18/22 ed cxr shows mild cardiomegaly , ekg with sinus bradycardia Macromastia 06/14/2022 Overview (12/09/2024): 2024: pt needed to lose weight before surgery and has been unable to do so 06/14/22: Pt ref for breast reduction surgery Moderate persistent asthma without complication (HHS-HCC) 06/14/2022 HSV-2 (herpes simplex virus 2) infection 022 Chronic migraine without aur a without status migrainosus, not intractable 01/06/2022 Overview (06/14/2022): 06/14/22: on excedrin with good effect Intramural leiomyoma of uterus 01/06/2022 Osteoarthritis of back 09/21/2021 Overview (07/07/2022): 06/27/22: Tc Mcgrath MD saw pt at [facility], started flexeril and c/w OTC NSAIDS> Referral to PT, f/u in 3 months or PRN 06/14/22: She reports she was also RX back brace which she continues to use. She is followed by Medicare in [facility]), received injections 01/06/22: XRAY at [facility] show thoracic and lumbar osteophytes Thoracic- there are bringing anterior and lateral osteophytes throughout the mid and lower thoracic spine Lumbar; there are small degenerative osteophytes throughout the lumbar spine Morbid obesity ([facility]) 09/21/2021 Resolved Problems Problem Noted Date Diagnosed Date Resolved Date Hypertension 09/21/2021 12/09/2024 Encounters Date Type Department Care Team Description 12/27/2024 1:40 PM EDT Office Visit [address] [phone] Demond Smith, Julia 12/23/2024 3:20 PM EDT Office Visit [address] [phone] Sarah Tobias NP 12/18/2024 Results Follow-Up [address] [phone] Rodger Virk RN 12/17/2024 Interim Notes [address] [phone] DanielleSaadkeeley 12/09/2024 2:00 PM EDT Office Visit [address] [phone] Sarah Tobias NP from Last 3 Months Immunizations Immunization Administration [...] e alcohol) Social Connections Answer Date Recorded How often do you feel lonely or isolated from th ose around you? 1 05/07/2024 Financial Resource Strain Answer Date R ecorded Hard to pay for: Food 1 05/07/2024 Stress Answer Date Recorded Do you feel these kinds of stress these days? 1 05/07/2024 Physical Activity Answer Date Recorded Physical Activity 2 08/03/2023 Food Insecurity Answer Date Recorded Hard to pay for: Food 1 05/07/2024 Transportation Needs Answer Date Record ed Hard to pay for: Transportation 1 05/07/2024 Housing Stability Answer Date Recorded Hard to pay for: Rent/Mortgage payment 1 05/07/2024 Safety and Environment Answer Date Marvel rded How often does anyone, inclu ding family and friends, physically hurt you? 1 05/07/2024 Utilities Answer Date Recorded Hard to pay for: Utilities 1 05/07 Employment Answer Date Recorded Stress 0 01/06/2022 [...] Sign Reading Time Taken Comments Blood Pressure 130/80 12/27/2024 1:46 PM EDT Pulse 97 12/27/2024 1:46 PM EDT Temperature 37 C (98.6 F) 12/27/2024 1:46 PM EDT Respiratory Rate 16 12/27/2024 1:46 PM EDT Oxygen Saturation 98% 12/27/2024 1:46 PM EDT Inhaled Oxygen Concentration - - Weight 143.9 kg (317 lb 3.2 oz) 12/27/2024 1:46 PM EDT Height 165.1 cm (5' 5 ) 12/27/2024 1:46 PM EDT Body Mass Index 52.78 12/27/2024 1:46 PM EDT Plan of Treatment Upcoming Encounters Date Type Department Care Team (Late st Contact Info) Description 03/06/2025 3:00 PM EDT Office Visit [facility] [address] [place] [phone] Demond Smith, PharmD [address] [place] [address] 03/31/2025 1:00 PM EDT Office Visit [facility] [address] [place] [phone] Sarah Tobias, WILIAM [address] [place] [address] Health Maintenance Due Date Last Done Comments HPV Screening 1974 Imm-Hepatitis B (1 of 3 - 19+ 3-dose series) 1993 FIT/gFOBT 10/08/2019 Fecal DNA 10/08/2019 Flexible Sigmoidoscopy 10/08/2019 Annual Wellness (Adult): Indicated (All Coverage) 06/07/2024 06/07/2023, 01/31/2023 Imm-Zoster, Recombinant (1 of 2) 2024 Depression Monitoring 01/04/2025 10/04/2024 , 05/07/2024, 10/20/2023, Additional history exists [id number] ( season) 2025 07/14/2022, 01/18/2021, 12/21/2020 Imm-Influenza (#1) 2025 06/27/2024, 02/16/2023 Breast Cancer Screening (Mammogram) 06/29/2025 06/18/2024 Tobacco Screening 08/06/2025 08/06/2024, , 07/13/2023, Additional history exists Anxiety Screening 10/04/2025 10/04/2024 Pap Smear 11/25/2025 11/25/2022 Diabetes Screening 12/16/2025 12/16/2024, 0 12/14/2023, 06/07/2023, Additional history exists Lipid Screening 06/12/2027 06/12/2024, 0810/2022, 09/21/2021 Cervical Cancer Screening 11/26/2027 Pap + HPV 11/26/2027 11/25/2022 Imm-Pneumococcal 50+ (3 of 3 - PCV20 or PCV21) 01/18/2028 01/17/2023, 01/06/2022 CT Colonography 02/20/2029 02/21/2024 (Farida ged by Outside Provider) Imm-DTaP/Tdap/Td (2 - Td or Tdap) 01/07/2032 01/06/2022 Colonoscopy 02/20/2034 02/21/2024 Colorectal Cancer Screening 02/20/2034 Hepatitis C Screening Completed 01/17/2023 HIV Screening Completed 12/14/2023, 02/23/2022 Alcohol and Drug Screen Addressed 10/05/19, 05/07/2024, 06/20/2023, Additional history exists Overridden with the intention of not completing the topic Cervical Ablation/Cold-Knife Conization Discontinued Cervical Cryotherapy Discontinued Colposcopy Discontinued Endometrial Biopsy Discontinued Excision/Leep Discontinued HPV Genotyping Discontinued Vaginal Pap Discontinued Vulvoscopy Discontinued Procedures Procedure Name Priority Date/Time Associated Diagnosis Comments OTHER ORDERS SCANNED DOCUMENT 01/13/2025 3:00 AM EDT OTHER ORDERS SCANNED DOCUMENT 12/27/2024 3:00 AM EDT REFERRAL SCANNED DOCUMENT 12/16/2024 3:00 AM EDT REFERRAL SCANNED DOCUMENT 12/16/2024 3:00 AM EDT OTHER ORDERS SCANNED DOCUMENT 12/12/2024 3:00 AM EDT IMAGING SCANNED DOCUMENT 11/26/2024 3:00 AM EDT IMAGING SCANNED DOCUMENT 11/26/2024 3:00 AM EDT IMAGING SCANNED DOCUMENT 11/26/2024 3:00 AM EDT REFERRAL FOR MAMMOGRAM Routine 3:00 AM EST Encounter for screening mammogram for breast cancer LIPID PANEL Routine 06/12/2024 9:28 AM EST Morbid obesity ([facility]) Prediabetes REFERRAL FOR COLONOSCOPY Routine 02/21/2024 [...] Recently Relevant to Health Maintenance Results * OTHER ORDERS SCANNED DOCUMENT (01/13/2025 3:00 AM EDT) Only the most recent of3 resultswithin the time period is included. 01/13/2025 3:00 AM EDT us Sarahdean FraireTobias BIOLOGY FACULTY MEMBER SCAN OTHER ORDERS Final Resu lt * REFERRAL SCANNED DOCUMENT (12/16/2024 3:00 AM EDT) Only the most recent of2 resultswithin the time period is included. 12/16/2024 3:00 AM EDT us Sarah Tobias BIOLOGY FACULTY MEMBER SCAN REFERRAL Final Result * IMAGING SCANNED DOCUMENT (11/26/2024 3:00 AM EDT) Only the most recent of3 resultswithin the time period is included. 11/26/2024 3:00 AM EDT us Sarah Tobias BIOLOGY FACULTY MEMBER SCAN IMAGING Final Result * REFERRAL FOR MAMMOGRAM SCREENING (06/18/2024 3:00 AM EST) 06/18/2024 3:00 AM EST us Sarah Tobias BIOLOGY FACULTY MEMBER IMG RFL MAMMO Final Result * (ABNORMAL) LIPID PANEL (06/12/2024 9:28 AM EST) CHOLESTEROL, TOTAL 246(H) <200 mg/dL [facility] HDL CHOLESTEROL 70 > OR = 50 mg/dL [facility] TRIGLYCERIDES 88 <150 mg/dL [facility] LDL-CHOLESTEROL 157(H) 99 mg/dL (calc) [facility] Comment: Reference range: <100 Desirable range <100 mg/dL for primary prevention; <70 mg/dL for patients with CHD or diabetic patients with > or = 2 CHD risk factors. LDL-C is now calculated using the Tracy calculation, which is a validated novel method providing better accuracy than the Friedewald equation in the estimation of LDL-C. Eliecer AYALA et al. BENJI. 2013;310(19): 3544-0915 (http://education.Company.SqueezeCMM/faq/XJN782) CHOL/HDLC RATIO 3.5 <5.0 (calc) [facility] NON-HDL CHOLESTEROL 176(H) <130 mg/dL (calc) [facility] Comment: For patients with diabetes plus 1 major ASCVD risk factor, treating to a non-HDL-C goal of <100 mg/dL (LDL-C of <70 mg/dL) is considered a therapeutic option. Blood Blood / Unknown 06/12/2024 9 :28 AM EST 06/12/2024 9:29 AM EST Narrative [facility] - 06/13/2024 3:30 AM EST FASTING:YES Sarah Tobias NP LAB - BLOOD DRAW Final Resul t [facility] [address] [place] [address], [facility] [address] [address] * REFERRAL FOR COLONOSCOPY (02/21/2024 3:00 AM EDT) 02/21/2024 3:00 AM EDT Sarah PAGE REFERRAL Edited Result - Final * HIV 1/2 AG & AB W/RFLX (4TH GEN) (12/14/2023 4:48 PM EDT) HIV AG/AB, 4TH GEN NON-REAC TIVE NON-REAC TIVE [facility] Comment: HIV-1 antigen and HIV-1/HIV-2 antibodies were not detected. There is no laboratory evidence of HIV infection. PLEASE NOTE: This information has been disclosed to you from records whose confidentiality may be protected by state law. If your state requires such protection, then the state law prohibits you from making any further disclosure of the information without the specific written consent of the person to whom it pertains, or as otherwise permitted by law. A general authorization for the release of medical or other information is NOT sufficient for this purpose. For additional information please refer to http://education.Collect[employer] Studio/faq/NYE078 (This link is being provided for informational/ educational purposes only.) The performance of this assay has not been clinically validated in patients less than 2 years old. Blood Blood / Unknown 12/14/2023 4 :48 PM EDT 12/14/2023 4:49 PM EDT Naga PAGE-Ben LAB - BLOOD DRAW Final Result [facility] [address] [address], [facility] [address] [place] [address] * COMPREHENSIVE METABOLIC PANEL (12/14/2023 4:48 PM EDT) GLUCOSE 84 65 - 99 mg/dL [facility] Comment: Fasting reference interval UREA NITROGEN (BUN) 13 7 - 25 mg/dL [facility] CREATININE (blood) 0.82 0.50 - 0.99 mg/dL [facility] EGFR 88 > OR = 60 mL/min/1. 73m2 [facility] BUN/CREATININE RATIO SEE NOTE: [facility] Comment: Not Reported: BUN and Creatinine are within reference range. SODIUM 138 135 - 146 mmol/L [facility] POTASSIUM 3.6 3.5 - 5.3 mmol/L [facility] CHLORIDE 102 98 - 110 mmol/L [facility] CARBON DIOXIDE 30 20 - 32 mmol/L [facility] CALCIUM 9.4 8.6 - 10.2 mg/dL [facility] PROTEIN, TOTAL 6.9 6.1 - 8.1 g/dL [facility] ALBUMIN 4.2 3.6 - 5.1 g/dL [facility] GLOBULIN 2.7 1.9 - 3.7 g/dL (calc) [facility] ALBUMIN/GLOBULI N RATIO 1.6 1.0 - 2.5 (calc) [facility] BILIRUBIN, TOTAL 0.4 0.2 - 1.2 mg/dL [facility] ALKALINE PHOSPHATASE 59 31 - 125 U/L [facility] AST 17 10 - 35 U/L [facility] ALT 23 6 - 29 U/L [facility] Blood Blood / Unknown 12/14/2023 4 :48 PM EDT 12/14/2023 4:49 PM EDT Naga Conn PA-C LAB - BLOOD DRAW Edited Resul t - Final Performing Organization Address [facility] Co de Phone Number [facility] [address] [place] [phone], [facility] [address] [phone] * HEPATITIS C AB W/RFLX HCV RNA, QT, RT PCR (01/17/2023 12:09 PM EDT) HEPATITIS C ANTIBODY NON-REACT FERDINAND NON-REACT FERDINAND [facility] Comment: HCV antibody was non-reactive. There is no laboratory evidence of HCV infection. In most cases, no further action is required. However, if recent HCV exposure is suspected, a test for HCV RNA (test code 54113) is suggested. For additional information please refer to http://Solmentum.[employer] Studio/faq/INY09e6 (This link is being provided for informational/ educational purposes only.) Blood Blood / Unknown 01/17/2023 1 2:09 PM EDT 01/17/2023 12:09 PM EDT Narrative [facility] - 01/18/2023 2:32 AM EDT FASTING:YES Sarah Tobias NP LAB - BLOOD DRAW Edited Resu lt - Final Performing Organization Address [facility] Co de Phone Number [facility] [address] [place] [phone], [facility] [address] [phone] * THIN PREP IMAGE PAP + HPV RNA E6/E7 W/RFLX HPV 16, 18/45 (11/25/2022 1:18 PM EDT) Pathologist [facility] CLINICAL INFORMATION See Note [employer] Comment:ROUTINE EXAM LMP See Note [employer] Comment:[id number] PREV. PAP See Note [employer] Comment:NONE GIVEN PREV. BX See Note [employer] Comment:NONE GIVEN SOURCE See Note [employer] Comment:Cervix STATEMENT OF ADEQUACY See Note [employer] Comment: Satisfactory for evaluation. Endocervical/transformation zone component present. Partially obscuring inflammation Partially obscuring blood INTERPRETATION/RESU LT See Note [facility] Comment:Negative for intraep ithelial lesion or malignancy. INFECTION See Note [facility] Comment: Fungal organisms morphologically consistent with Ann spp. COMMENT See Note [facility] Comment: This case could not be evaluated with computer assisted technology. The slide was manually screened according to routine procedures. SILICA DRY PRESS HELPER See Note [facility] [employer] [facility] Comment: KN, CT(ASCP) CT screening location: [place] [address] COMMENT [facility] HPV MRNA E6/E7 Not Detected Not Detected [facility] Comment: Methodology: Sock Examiner-Mediated Amplification This assay detects E6/E7 viral messenger RNA (mRNA) from 14 high-risk HPV types (16,18,31,33,35,39,45,51,52,56,58,59,66,68). Cervical sources are required for HPV testing. If a vaginal source from a patient who has had a total hysterectomy with removal of cervix was submitted, please contact the testing laboratory for alternative testing options. For additional information, please refer to http://education.[employer] Studio/faq/BLX304g0 (This link if provided for information/ educational purposes only.) Swab Cervix uteri structure / Unknown 11/25/2022 1:18 PM EDT 11/28/2022 6:25 AM EDT Narrative QPD [facility] - 12/01/2022 5:53 PM EDT EXPLANATORY [...] along with historic and current clinical information. us Sarah Tobias BIOLOGY FACULTY MEMBER LAB - PATHOLOGY AND CYTOLOGY AMBULATORY Final Result [facility] [address] [address], [facility] [address] [phone] from Last 3 Months or Most Recently Relevant to Health Maintenance Insurance [facility] [employer] [address] [employer] WORK[employer] COMPENSATION , [phone] [place] [address] Care Teams Supervisor Of Research Relationship Specialty Start Date End Date Sarah Tobias NP [address] [place] [address] PCP - General Internal Medicine 04/11/22
--- OUTSIDE RECORDS SUMMARY | 2025-02-13 22:07 | XMS_ITS | Clinical Summary ---
Author Organization [employer] Address [address] [place] [address] [address] [place] [address] Care Team Providers Care Tree Puller Name Role Phone Unavailable Primary Care Provider [...] of 3 - 19+ 3-dose series) 1993 Pneumococcal Vaccine: 50+ Years (2 of 2 - PPSV23) 2024 01/06/2022 Zoster Vaccines (1 of 2) 2024 COVID-19 Vaccine (4 - 2024-2 6 season) 2025 07/14/2022, 01/18/2021, 12/21/2020 Influenza Vaccine (#1) 2025 DTaP/Tdap/Td Vaccines (2 - T d [...]
--- OUTSIDE RECORDS SUMMARY | 2025-02-13 22:07 | XMS_ITS ---
Author Organization [facility] Address [address] [place] [address] Care Team Providers Care Chef Teacher Name Role Phone Sarah Tobias NP Primary Care Provider [facility] Ast[facility] Program Status:Enrolled (Active) Start date:05/31/2022 Enrollment date:05/31/2022 Case Team Name Relationship Phone Demond Rodriguez PharmD(Responsible S taff) [phone] Continued Care and Services Coordination
[2025-02-13 22:59] VITALS: BP 207/83; PULSE 70; RESP 17; TEMP 36.1; O2SAT 98
[2025-02-13 23:08] VITALS: BP 207/83; PULSE 70; RESP 17; TEMP 36.1; O2SAT 98
== END 2025-02-13 23:12 | disposition home or self-care (01) ==
PROVIDERS: Physician Assistant Medical; Emergency Provider Emergency Medicine; PCP Dentist General Practice
DX: N64.4 Mastodynia (principal); I10 Essential (primary) hypertension; J45.909 Unspecified asthma, uncomplicated
CPT/HCPCS: 36415; 71046; 80053; 83690; 83735; 84484; 84702; 85025; 93005; 99283; 99284

== ENCOUNTER → 2025-02-13 17:39 | Outpatient (BNV) | payer MEDICAID, SELFPAY | PROVIDERS: Visit Provider Radiology Diagnostic Radiology | DX: R07.89 Other chest pain (principal) | CPT/HCPCS: 71046 ==

== ENCOUNTER → 2025-02-13 17:39 | Outpatient (BNV) | payer MEDICAID, SELFPAY | PROVIDERS: Emergency Provider Emergency Medicine; PCP Dentist General Practice; Visit Provider Internal Medicine Cardiovascular Disease | DX: R00.1 Bradycardia, unspecified (principal) | CPT/HCPCS: 93010 ==

== ENCOUNTER 2025-03-03 18:04 | Emergency (ER) | payer MEDICAID, SELFPAY ==
--- OUTSIDE RECORDS SUMMARY | 2022-06-09 10:03 | XMS_ITS | Continuity of Care Document ---
Author Organization [facility] Address [address] [place] [address] Phone Care Team Providers Care Chief Fundraising Officer Name Role Phone Carlotta Mcghee CNP Unavailable Unavail able Allergies, Adverse Reactions, Alerts Substance Reaction Status Criticality No Known Allergies Active No Inform ation Medications Medication Instructions Dosage Effective Dates (start - stop) Status Comments ATORVASTATIN 20 MG TABLET TOME IAN TABLE TA [facility] - Active diclofenac 1 % topical gel apply 2 gram by topical route 4 times every day to the affected area(s) 2.00 gram - Active Naprosyn 500 mg tablet take 1 tablet by oral route every 12 hours with food as needed 500 MG - Active blood pressure kit-extra large cuff use as directed to monitor BP dx essential HTN I10 - Active acetaminophen 500 mg capsule take 2 capsule by oral route 3 times every day as needed for pain - Active LOSARTAN POTASSIUM 100 MG TAB TOME IAN TABLETA [facility] - Active HYDROCHLOROTHIAZIDE 12.5 MG CP TOME IAN [facility] - Active lidocaine 5 % topical patch apply 2 patch by transdermal route every day (May wear up to 12hours.) 2 patch - Active Miralax 17 gram/dose oral powder take (17G) by oral route every day mixed with 8 oz. water, juice, soda, coffee or tea - Active clotrimazole 1 % topical cream apply by topical route 2 times every day to the affected and surrounding areas of skin in the morning and evening 0.00 - Active Procedures Procedure Date OFFICE/OUTPATIENT VISIT, EST OFFICE/OUTPATIENT VISIT, EST Left W/O Being Seen Moderna Covid-19 Vaccine 100MCG/0.5ML IM Immunization Only No E/M Required OFFICE/OUTPATIENT VISIT, EST Moderna Covid-19 Vaccine 100MCG/0.5ML IM Immunization Only No E/M Required OFFICE/OUTPATIENT VISIT, EST OFFICE/OUTPATIENT VISIT, EST OFFICE/OUTPATIENT VISIT, EST OFFICE/OUTPATIENT VISIT, EST COVID-19 Swab Procedure Only No E/M Antigen Detect By Immunoassay Tech COVID -19 MEDICAL NUTRITION, INDIV, IN OFFICE/OUTPATIENT VISIT, EST Left W/O Being Seen MEDICAL NUTRITION, INDIV, IN OFFICE/OUTPATIENT VISIT, EST OFFICE/OUTPATIENT VISIT, EST COVID-19 Swab Procedure Only No E/M AUDIT/DAST, 15-30 MIN OFFICE/OUTPATIENT VISIT, EST Antigen Detect By Immunoassay Tech COVID -19 AUDIT/DAST, 15-30 MIN Obtaining screen pap smear PREV VISIT, EST, AGE 40-64 CMPTR OPHTH IMG OPTIC NERVE CMPTR OPHTH IMG OPTIC NERVE Optometry OFFICE/OUTPATIENT VISIT, EST N FITTING OF SPECTACLES FITTING OF SPECTACLES Comprehensive Oral Evaluation-New Or Est ablished P Intraoral-Complete Series (Including Bit ewings) Optical Ordering Glasses Only 0 REFRACTION EYE EXAM, NEW PATIENT Prophylaxis-Adult Oral Hygiene Instructions Nutritional Counseling For Control Of De ntal Disea Comprehensive Periodontal Evaluation-New Or Establ Limited Oral Evaluation-Problem Focused Intraoral-Periapical First Film 020 Left W/O Being Seen AUDIT/DAST, 15-30 MIN OFFICE/OUTPATIENT VISIT, NEW Advance Directives Directive Yes / No Effective Date File Name No Information Encounters Encounter Description Practice Location Reason(s) For Visit Diagnoses Date Provider Providers Copied on Encounter [facility], [address] [place] [address] 2,[address], [place], [place], [id number], tel:[phone] [employer] No Information 3 Hailey Laguerre. [address] [place], [place], [id number], [place]. tel:[phone] OFFICE/OUTPA TIENT VISIT, EST [facility], [address], [place], [place], [address], [place] tel:[phone] [employer] Medical paperwork request (chief complaint) Housing lack 1 Hailey Laguerre. [address] [place], [place], [id number], [place]. tel:[phone] [facility], [address], [place], [place], [address], [place] tel:[phone] [employer] [facility] No Information 1 Hailey Laguerre. [address] [place], [place], [id number], [place]. tel:[phone] OFFICE/OUTPA TIENT VISIT, EST [facility], [address], [place], [place], [address], [place] tel:[phone] [facility] knee pain (chief complaint) Right knee pain, unspecified chronicity 1 Hailey Laguerre. [address] [place], [place], [id number], [place]. tel:[phone] [facility], [address], [place], [place], [address], [place] tel:[phone] [facility] Knee pain. (chief complaint) Proc/trtmt not crd out d/t pt lv bef seen by [facility] prov 1 Hailey Laguerre. [address] [place], [place], [id number], [place]. tel:[phone] OFFICE/OUTPA TIENT VISIT, [facility], [address], [place], [place], [address], [place] tel:[phone] [facility] covid vax (chief complaint) Encounter for immunization 1 No Information [facility], [address] [place] [address] 2,[address], [place], [place], [address], [place] tel:[phone] [facility] Right knee pain, unspecified chronicity 1 [place]. [address] [place], [place], [address], [place]. tel:[phone] OFFICE/OUTPA TIENT VISIT, [facility], [address], [place], [place], [address], [place] tel:[phone] [facility] covid vax (chief complaint) Encounter for immunization 1 No Information OFFICE/OUTPA TIENT VISIT, [facility], [address], [place], [place], [address], [place] tel:[phone] [facility] right knee pain and left elbow pain (chief complaint)cou gh (chief complaint) Right knee pain, unspecified chronicityLe ft elbow painCough 1 [place]. [address] [place], [place], [address], [place]. 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 [address] [place], [place], [id number], [place]. tel:[phone] [facility], [address], [place], [place], [address], [place] tel:[phone] [facility] No Information 1 Hailey Laguerre. [address] [place], [place], [address], [place]. tel:[phone] [facility], [address] [facility] [address], [place], [place], [address], [place] tel:[phone] [facility] Acute right-sided thoracic back pain 1 Alberto Smith. [address] [place], [place], [id number]. tel:[phone] OFFICE/OUTPA TIENT VISIT, EST [facility], [address] [facility] [address], [place], [place], [address], [place] tel:[phone] [facility] back pain. (chief complaint) Acute right-sided thoracic back painRib pain on right side 1 Boy Fraga. [address] [place], [place], [id number]. tel:[phone] [facility], [address] [facility] [address] [address], [place], [place], [address], [place] tel:[phone] [facility] COVID TEST (chief complaint) Close exposure to 2019 novel coronavirus 1 No Information [facility], [address], [place], [place], [address], [place] tel:[phone] [facility] Essential hypertension Prediabetes 1 No Information OFFICE/OUTPA TIENT VISIT, EST [facility], [address], [place], [place], [address], [place] tel:[phone] [facility] abdominal pain (chief complaint) Right sided abdominal pain 3 1 Hailey Laguerre. [address] [place], [place], [address], [place]. tel:[phone] [facility], [address], [place], [place], [address], [place] tel:[phone] [facility] BP check (chief complaint) Proc/trtmt not crd out d/t pt lv bef seen by [facility] care prov 0 1 Hailey Laguerre. [address] [place], [place], [id number], [place]. tel:[phone] [facility], [address], [place], [place], [address], [place] tel:[phone] [facility] Essential hypertension Prediabetes 1 No Information Referring Provider: Carlotta Lara, [address] [place], [address] . tel:[phone] OFFICE/OUTPA TIENT VISIT, EST [facility], [address], [place], [place], [address], [place] tel:[phone] [facility] hypertension (chief complaint)chr onic back pain (chief complaint) Chronic left-sided low back pain with left-sided sciaticaEsse ntial hypertension Fungal infection 1 Hailey Laguerre. [address] [place], [place], [address], [place]. tel:[phone] OFFICE/OUTPA TIENT VISIT, EST [facility], [address], [place], [place], [address], [place] tel:[phone] [facility] bp check (chief complaint) Essential hypertension 1 Hailey Laguerre. [address] [place], [place], [address], [place]. tel:[phone] [facility], [address] [facility] [address], [place], [place], [address], [place] tel:[phone] [facility] covid test (chief complaint) Close exposure to 2019 novel coronavirus 1 No Information OFFICE/OUTPA TIENT VISIT, EST [facility], [address] [address], [place], [place], [address], [place] tel:[phone] [facility] BP check (chief complaint)COV ID inquiry (chief complaint) Essential hypertension Cough 1 Hailey Laguerre. [address] [place], [place], [id number], [place]. 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 [address] [place], [place], [address], [place]. tel:[phone] Optometry OFFICE/OUTPA TIENT VISIT, EST [facility], [address] [address], [place], [place], [address], [place] tel:[phone] [facility] OCT Follow up (chief complaint) Suspicious optic nerve cupping of both eyes Nov-0 0 Nicole Espino. [address] [place], [place], [address]. tel:[phone] [facility], [address] [facility] [address], [place], [address], [place] tel:[phone] [facility] No Information Oct-2 - 0 No Information [facility], [address] [facility] [address], [place], [place], [address], [place] tel:[phone] [facility] Encounter for dental exam and cleaning w/o abnormal findings Oct-2 - 0 No Information [facility], [address] [place] [address] [address] [place] [address], [id number], [place] tel:[phone] [facility] No Information Oct-0 -202 0 No Information [facility], [address] [facility] [address], [place], [address], [place] tel:[phone] [facility] broken glasses and blurry vision (chief complaint) Hyperopia with presbyopia of both eyesSuspicio us optic nerve cupping of both eyesEncounte r for examination of eyes and vision with abnormal findings Oct-0 7-202 0 Naomy Peters. [address] [place], [place], [address], [place]. tel:[phone] [facility], [address] [facility] [address], [address], [place] tel:[phone] [facility] Encounter for dental exam and cleaning w/o abnormal findings Oct-0 6-202 0 Ozzy Moreno. [address] [place], [place], [address], [place]. tel:[phone] [facility], [address] [facility] [address], [place], [address], tel:[phone] [facility] Encounter for dental exam and cleaning w/o abnormal findings Mar-- 0 No Information [facility], [address] [address] [facility] [address], [place], [place], [address], tel:[phone] [facility] chronic conditions (chief complaint) Proc/trtmt not crd out d/t pt lv bef seen by [facility] care prov Feb- 0 Hailey Laguerre. [address] [place], [place], [address], [place]. 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 [address] [place], [place], [address], [place]. tel:[phone] Family History Family Member Type Diagnosis Age At Onset Sister Problem (finding) hypertension Maternal grandfather Problem (finding) glaucoma Mother Problem (finding) Diabetes mellitus Father Problem (finding) Diabetes mellitus Father Problem (finding) hypercholesterolemia Mother Problem (finding) glaucoma Brother Problem (finding) hypertension Immunizations Vaccine Date Status Comments Moderna COVID-19 Vaccine (18 yrs +) administered Source: New Immuniza tion Record Moderna COVID-19 Vaccine (18 yrs +) administered Source: New Immuniza tion Record Payers Payer name Insurance type Covered libertarian ID Authoriza tion(s) [facility] C3 ACO [id number] [facility] C3 ACO [id number] [facility] C3 O [id number] Social History Type Description Quantity Date Captured Comments Alcohol Use Details Unknown Caffeine Use Details Unknown Tobacco Use Status No Information Smoking Status No Information Sex Female Chief Complaint And Reason For Visit No Information Reason For Referral Reason For Referral No Information Plan Of Treatment Date Type Action Status Goal LDL Cholesterol (Direct). Du e on due Goal Urinalysis. Due on due Goal Colonoscopy. Due on due Goal ECG. Due on due Goal FOBT. Due on due Goal Influenza vaccine. Due on due Goal Unhealthy drug use screening . Due on due Goal APE. Due on due Goal Lipid panel. Due on due Goal Tdap. Due on due Goal CT-Colonography. Due on due Goal Td vaccine. Due on due Goal FIT-DNA. Due on due Goal Pap/HPV testing. Due on due Goal Document SOGI Information. D ue on due Goal Unhealthy drug use screening . Due on due Goal Pap/HPV testing. Due on due Goal Td vaccine. Due on due Goal Document SOGI Information. D ue on due Goal Influenza vaccine. Due on due Goal ECG. Due on due Goal LDL Cholesterol (Direct). Du e on due Goal Lipid panel. Due on 025 due Goal Tdap. Due on due Goal Urinalysis. Due on due Goal APE. Due on due Goal Diabetes screening. Due on O due Goal ECG. Due on due Goal LDL Cholesterol (Direct). Du e on due Goal Tdap. Due on due Goal Influenza vaccine. Due on Se due Goal Diabetes screening. Due on S due Goal Urinalysis. Due on due Goal Pap/HPV testing. Due on due Goal Document SOGI Information. D ue on due Goal Td vaccine. Due on due Goal Lipid panel. Due on due Goal APE. Due on due Goal Lipid panel. Due on due Goal Pap/HPV testing. Due on due Goal Document SOGI Information. D ue on due Goal APE. Due on due Goal Tdap. Due on due Goal Td vaccine. Due on due Goal Urinalysis. Due on due Goal Diabetes screening. Due on A due Goal Influenza vaccine. Due on due Goal LDL Cholesterol (Direct). Du e on due Goal ECG. Due on due Goal ECG. Due on due Goal LDL Cholesterol (Direct). Du e on due Goal Lipid panel. Due on due Goal APE. Due on due Goal Td vaccine. Due on due Goal Influenza vaccine. Due on due Goal Tdap. Due on due Goal Urinalysis. Due on due Goal Document SOGI Information. D ue on due Goal Pap/HPV testing. Due on due Goal Diabetes screening. Due on A due Goal Document SOGI Information. D ue on due Goal Pap/HPV testing. Due on due Goal Tdap. Due on due Goal LDL Cholesterol (Direct). Du e on due Goal ECG. Due on due Goal Influenza vaccine. Due on due Goal Urinalysis. Due on due Goal APE. Due on due Goal Td vaccine. Due on due Goal Lipid panel. Due on due Goal Diabetes screening. Due on A due Goal LDL Cholesterol (Direct). Du e on due Goal Pap/HPV testing. Due on due Goal Document SOGI Information. D ue on due Goal Lipid panel. Due on due Goal Influenza vaccine. Due on due Goal ECG. Due on due Goal Diabetes screening. Due on due Goal APE. Due on due Goal Tdap. Due on due Goal Urinalysis. Due on due Goal Td vaccine. Due on due Goal Hepatitis C Screening due Goal Lipid panel. Due on due Goal Influenza vaccine. Due on due Goal Td vaccine. Due on due Goal Pap/HPV testing. Due on due Goal APE. Due on due Goal Document SOGI Information. D ue on due Goal Tdap. Due on due Goal Hepatitis C Screening due Goal LDL Cholesterol (Direct). Du e on due Goal Urinalysis. Due on due Goal ECG. Due on due Goal Diabetes screening. Due on due Goal Hepatitis C Screening due Goal LDL Cholesterol (Direct). Du e on due Goal Lipid panel. Due on due Goal Td vaccine. Due on due Goal Urinalysis. Due on due Goal Diabetes screening. Due on due Goal Document SOGI Information. D ue on due Goal Pap/HPV testing. Due on due Goal APE. Due on due Goal Influenza vaccine. Due on due Goal ECG. Due on due Goal Tdap. Due on due Goal APE. Due on due Goal Pap/HPV testing. Due on due Goal Hepatitis C Screening due Goal Tdap. Due on due Goal LDL Cholesterol (Direct). Du e on due Goal Urinalysis. Due on due Goal Influenza vaccine. Due on due Goal Td vaccine. Due on due Goal Document SOGI Information. D ue on due Goal Lipid panel. Due on due Goal ECG. Due on due Goal Diabetes screening. Due on due Goal Urinalysis. Due on due Goal Pap/HPV testing. Due on due Goal Hepatitis C Screening due Goal Diabetes screening. Due on due Goal APE. Due on due Goal Influenza vaccine. Due on due Goal Document SOGI Information. D ue on due Goal Td vaccine. Due on due Goal ECG. Due on due Goal LDL Cholesterol (Direct). Du e on due Goal Tdap. Due on due Goal Lipid panel. Due on due Goal Urinalysis. Due on due Goal Diabetes screening. Due on due Goal Td vaccine. Due on due Goal Hepatitis C Screening due Goal LDL Cholesterol (Direct). Du e on due Goal Lipid panel. Due on due Goal Tdap. Due on due Goal Influenza vaccine. Due on due Goal ECG. Due on due Goal Pap/HPV testing. Due on due Goal Document SOGI Information. D ue on due Goal APE. Due on due Goal Document SOGI Information. D ue on due Goal Td vaccine. Due on due Goal Diabetes screening. Due on due Goal Hepatitis C Screening due Goal Tdap. Due on due Goal Pap/HPV testing. Due on due Goal Lipid panel. Due on due Goal APE. Due on due Goal ECG. Due on due Goal Influenza vaccine. Due on due Goal LDL Cholesterol (Direct). Du e on due Goal Urinalysis. Due on due Goal Tdap. Due on due Goal Urinalysis. Due on due Goal ECG. Due on due Goal Influenza vaccine. Due on due Goal Td vaccine. Due on due Goal LDL Cholesterol (Direct). Du e on due Goal APE. Due on due Goal Lipid panel. Due on due Goal Hepatitis C Screening due Goal Document SOGI Information. D ue on due Goal Pap/HPV testing. Due on due Goal Diabetes screening. Due on due Goal LDL Cholesterol (Direct). Du e on due Goal Hepatitis C Screening due Goal ECG. Due on due Goal Tdap. Due on due Goal APE. Due on due Goal Td vaccine. Due on due Goal Influenza vaccine. Due on due Goal Lipid panel. Due on due Goal Urinalysis. Due on due Goal Diabetes screening. Due on due Goal Document SOGI Information. D ue on due Goal Pap/HPV testing. Due on due Goal Lipid panel. Due on due Goal Urinalysis. Due on due Goal Document SOGI Information. D ue on due Goal Td vaccine. Due on due Goal Diabetes screening. Due on due Goal ECG. Due on due Goal Pap/HPV testing. Due on due Goal Tdap. Due on due Goal Hepatitis C Screening due Goal APE. Due on due Goal LDL Cholesterol (Direct). Du e on due Goal Influenza vaccine. Due on due Goal Td vaccine. Due on due Goal ECG. Due on due Goal Tdap. Due on due Goal Influenza vaccine. Due on due Goal Hepatitis C Screening due Goal Lipid panel. Due on due Goal APE. Due on due Goal Urinalysis. Due on due Goal LDL Cholesterol (Direct). Du e on due Goal Pap/HPV testing. Due on due Goal Diabetes screening. Due on due Goal Document SOGI Information. D ue on due Goal Tdap. Due on due Goal APE. Due on due Goal Urinalysis. Due on due Goal Influenza vaccine. Due on due Goal Pap/HPV testing. Due on due Goal Diabetes screening. Due on due Goal Document SOGI Information. D ue on due Goal Td vaccine. Due on due Goal Lipid panel. Due on due Goal LDL Cholesterol (Direct). Du e on due Goal ECG. Due on due Goal Hepatitis C Screening due Goal Td vaccine. Due on due Goal APE. Due on due Goal Tdap. Due on due Goal ECG. Due on due Goal Diabetes screening. Due on due Goal Influenza vaccine. Due on due Goal Pap/HPV testing. Due on due Goal Lipid panel. Due on due Goal Document SOGI Information. D ue on due Goal LDL Cholesterol (Direct). Du e on due Goal Urinalysis. Due on due Goal Hepatitis C Screening due Referral Ordered: Referrals: Orthopedics Appointment date/timeframe: 01/14/2021 ordered Referral Ordered: X-RAY EXAM OF KNEE, 3 VIEWS Appointment date/timeframe: Elective-Pt Discretion ordered Referral Ordered: CHEST X-RAY AP & LAT 2 VIEWS Appointment date/timeframe: Elective-Pt Discretion ordered Referral Ordered: X-RAY EXAM OF ELBOW 2 VIEWS Appointment date/timeframe: Elective-Pt Discretion ordered Referral Ordered: Physical Therapy (related to Acute right-sided thoracic back pain) ordered Referral Ordered: X-RAY EXAM OF THORACIC SPINE, 2 VIEWS Appointment date/timeframe: Routine <3 Months ordered Referral Ordered: X-RAY EXAM OF RIBS/CHEST BILAT MIN 4 VIEWS Appointment date/timeframe: Routine <3 Months ordered Referral Ordered: Physical Therapy (related to Chronic left-sided low back pain with left-sided sciatica) ordered Referral Referred To: Physical Therapy Ordered: Referrals: Physical Therapy. Evaluate and treat Appointment date/timeframe: Elective-Pt Discretion ordered Referral Ordered: Pulmonary (related to History of asthma) ordered Referral Ordered: Referrals: Pulmonary. Evaluate and treat Appointment date/timeframe: Routine <3 Months ordered History Of Present Illness Encounter Date Complaint History Of Prese nt Illness paperwork request A 45-year-old female seen today through telehealth requesting help to fill out housing paperwork work.She is living with her sister and as her sister is leaving, she will be losing housing. She is requesting a letter that she cannot work and wants subsidized housing. knee pain (comments) A 45-year-o ld female seen today through telehealth visit for knee pain.She saw orthopedist last week for right knee pain. The plan was for PT for 8 weeks and has a follow up appointment set for 03/2021. 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 knee pain Knee pain. covid vax Patient presents in NAD for COVID vaccine. Patient meets criteria of cohort currently sanctioned by [facility]. Contraindications and risk factors assessed. Patient's questions answered. covid vax Patient presents in NAD for COVID vaccine. Patient meets criteria of cohort currently sanctioned by [facility]. Contraindications and risk factors assessed. Patient's questions answered. cough right knee pain and left elbow pain (comments) 45 yo female with recent fall at home She was on her knees cleaning bathtub when she felt acute right knee pain and she stumbled and fell onto left elbow Her knees bother her off and on but now with lots of right knee pain It was swollen but with time and OTC anti-inflammatory cream the swelling has improved but not the pain Her left elbow hurts madhu when she uses arm to lift/carry Pain located on outside aspect cough (comments) She also notes approx 3 weeks of a cough She had a bad cold , covid negative Her cold symptoms resolved but this dry cough has persisted She notes it starts with an irritated throat which triggers this cough No fever/chills At times with cough will feel SOB Over past 3 weeks she feels it is worsening She has remote h/o asthma She smoked for 3-4 years and quit in 2008 right knee pain and left elbow pain Form request 45 year old with 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 Has not seen orthopedics. back pain. Pt presents to [facility] w/concern about back pain. Used telesales representative for visit.Pt reports back pain for 2mo. She took med for this pain and it didn't go away. She went to ED and was told there was an infection, she was given antibiotics and the pain did not go away.Reports pain is mid back, at spine where ribs connect. Hurts to breathe, radiates to her 'R lung' and 'to the front.' Hurts to move bc of painNo numbness or tingling. Does not radiate to lungs.No fever. No precipitating injury. Has used ibu 800mg 1 every day, does not help.Had a similar pain after a work injury/overuse ~9mo ago, had nrml thoracic xray. Could not attend PT at that time. Pain resolved. Now has recurred in the same location.Is coughing more recently bc of the 'flu,' neg COVID antigen test 11/09/20. ED 10/01/20- report lists RUQ pain, nrm CT A/P. trx'ed for pyelo, urine cx proteus mirabelis 10-49,000. Took full course abx. Pt denies any abd pain or dysuria at that time or no. CT A/P WNL, nrml kidneys.Xray thoracic 11/2019 WNL.Not yet vaccinated for COVID. Does want to be. COVID TEST Patient presents to COVID testing trailer for mid-turbinate nasal swab collection per provider POC. abdominal pain Onset: 2 Weeks. The symptoms are intermittent. The location is right upper quadrant and right lower quadrant. The quality of the pain is sharp. Associated symptoms include constipation. Pertinent negatives include blood in stool, diarrhea, fever, flank pain, nausea and vomiting. Additional information: trigger when she is lying down, when she walks sometimes, right now she does not have it,. BP check Currently on HCT Z 25 and losartan 100 mg Last BP check was 63% in goal hypertension It is currently stable. Risk factors include race, high salt intake, inactive lifestyle and obesity. Additional information: At home, states its normal. 142/72 chronic back pain has had X ray in the past in [place] Now that she is working she is getting the pain at the lower back She was advised to reach out to PCP Denies any inconteinue bp check Last visit we in crease her HCTZ from 12.5 to 25 mg, continue her Losartan 100 mg since BP was not at goal th-145/8627th- 148/78 th- 142/68 ++th- 135/72 ++30- 133/77 ++31st - 140/78 +1nd- 126/85 +2rd- 153/923- 143/88 +4-136/85 +5- 126/75 +7/ 11 at goal or 63 %. Tolerating the medications well covid test Patient presents to COVID testing trailer for mid-turbinate nasal swab collection per provider POC.Patient reports possible symptoms consistent with COVID-19. They deny exposure to person(s) with possible/confirmed COVID-19. Pt has been having Sx for <7 days so qualifies for a rapid Binax test today. COVID inquiry She is asking fo r COVID testing today. Right now she is having a cough that she does not think it related to asthma This started about 3 days ago. cough is strong, but intermittent Denies fever, CP. Able to complete her ADL. BP check Last visit in [facility], patient BP not at goal since she did not have any medicine. Rx resents and today we are checking on her BPCurrently takes HCTZ 12.5 mg and Losartant Not taking the atorvastin any more since she had a headahce and an episode of weakness. BP log 06/18- 8 AM - 152/74 pulse 71 15- 9 15 AM 140/7201/16- 7 30 AM 147/68 17- 830 AM 140/71 18- 800 AM 143/65 06/23- 745AM 153/70 06/24- 830 AM 150/7501/21 750 AM 148/7301/22- 815 AM 142/6501/23- 801 AM 148/68 24- 745 AM 141/8101/25- today 152/87 hypertension It is currently getting worse. Risk factors include race, high salt intake, inactive lifestyle and obesity. Pertinent negatives include chest pain, dyspnea, fatigue and headache. Additional information: Has been without meds for a couple of week. She has a BP machine at home. 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 It was normal. She has never had an abnormal PAP. OBGYN hx G1A1- miscarriage. Not currently sexually active. Gets her periods, irregular. Pretty light. Had her period last month. She has PMS s/sx- migraines. OCT Follow up 44 yo F here for OCT. Pt is a Glaucoma suspect. Pt has no vision complaints @ D or @ N cc. Pt denies: flashes, floaters, burning, tearing, itching and redness. broken glasses and blurry vision 44 yo F here because her glasses broke and blurry vision. Blurry vision @ N>D has started 4 months ago, in both eyes, constant, notices mainly while reading, with associated tearing, relives it by using bright light and using OTC readers. NICANOR 2.5 years ago in [place] and were given the glasses that are currently burning. Pt denies: flashes, floaters, burning, itching, and redness. 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 [facility] : 2 months in [place], before that she was in [place] for 6 months Previous medical care in the [facility]: She had a doctor in [place] that she saw once, but she had no f/u appt.'s after that. PMH: HTN, Asthma ( intermittent), Migraines, Circulatory issues, high cholesterolPSH: Gallbladder removal in 2016 in [place]. Medication hx - Losartan 100 mg once a day - but ? increase of the medication was planned. - chlorthalidone 25- atorvastatin - dosage unknown [place] ( for circulation- given in [place], but was damaging her kidneys so she was told to stop)She used to have a mixed asthma medication, but its no longer made here so the doctor gave her something in [place]- but she does not know She also has albuterol HFA.This morning bp was 160/110. 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
[2025-03-03 18:13] VITALS: BP 149/65; PULSE 83; RESP 16; TEMP 36.1; O2SAT 95; BMI 53.7
--- NOTE | 2025-03-03 18:20 | ED.GENADULT ---
HPI - General Adult General Chief complaint: General Medical Stated complaint: lt side numbness, not feeling well Time Seen by Provider: 03/03/25 21:41 Source: patient, RN notes reviewed, old records reviewed and senior asic engineer Mode of arrival: ambulatory Limitations: language barrier History of Present Illness ED Provider: Dr. Gill Coreas HPI narrative: 49-year-old female with a history of hypertension, asthma, tobacco use presenting with facial numbness and heart palpitations that began several hours prior to arrival today. Patient reports that she was recently returning from [place] after her brother last week. States that she was sitting down talking to her brothers when she developed these symptoms. Describes left-sided facial tingling and numbness as well as her heart racing. No associated chest pain or headache. Symptoms have totally resolved at this time. She has not used her inhaler today. She does take furosemide for leg edema. Admits that she has been dealing with a cough productive of yellow sputum occasionally but denies associated fever, sinus congestion, abdominal pain, vomiting, bowel changes, urinary complaints, known sick contacts or travel. Her brother that was 53. She reports he of a blood clot in his brain. Related Data Previous Rx's ?Medication ?Instructions ?Recorded miconazole nitrate 2 % vaginal 1 appful vaginal BEDTIME 7 days 02/07/22 cream #45 grams nitrofurantoin 100 mg PO Q12H 5 days #10 caps 02/07/22 monohydrate/macrocrystals 100 mg capsule (Macrobid) albuterol sulfate 90 mcg/actuation 2 inh inhalation Q4-6H PRN 05/13/22 breath activated powder inhaler shortness of breath or wheezing #1 ea prednisone 20 mg tablet 40 mg (2 x 20 mg) PO DAILY 5 days 05/13/22 #10 tabs phenazopyridine 200 mg tablet 200 mg PO TID PRN pain 6 doses #6 09/07/22 (Pyridium) tabs sulfamethoxazole 800 1 tab PO BID #10 tabs 09/07/22 mg-trimethoprim 160 mg tablet (Bactrim DS) acetaminophen 500 mg tablet 1,000 mg (2 x 500 mg) PO QID PRN 08/27/23 pain #30 tabs cyclobenzaprine 5 mg tablet 5 mg PO TID PRN muscle spasm #14 08/27/23 tabs ibuprofen 600 mg tablet 600 mg PO Q6H PRN pain #20 tabs 08/27/23 albuterol sulfate 2.5 mg/0.5 mL 5 mg inhalation Q6H PRN shortness 01/29/24 solution for nebulization of breath or wheezing #30 ea prednisone 20 mg tablet 40 mg (2 x 20 mg) PO DAILY #10 tabs 01/29/24 nitrofurantoin 100 mg PO Q12H 7 days #14 caps 09/14/24 monohydrate/macrocrystals 100 mg capsule (Macrobid) prednisone 20 mg tablet 40 mg (2 x 20 mg) PO DAILY #10 tabs 11/10/24 cyclobenzaprine 10 mg tablet 10 mg PO TID PRN muscle spasm #10 11/27/24 tabs lidocaine 5 % topical patch 1 patch topical DAILY #15 ea 11/27/24 omeprazole 20 mg capsule,delayed 20 mg PO DAILY #30 caps 03/03/25 release potassium chloride 10 mEq 10 meq PO DAILY 14 days #14 tabs 03/03/25 tablet,extended release (Klor-Con) Allergies Allergy/AdvReac Type Severity Reaction Status Date / Time No Known Allergies Allergy Verified 03/03/25 18:24 Review of Systems Review of Systems: As per HPI, full review of systems performed and negative but for the above mentioned pertinent positives and negatives. FOR[facility]LY [facility] Past Medical History Medical History Hypertension Social History Social History Patient Tobacco Use Status: Never used Tobacco Advance Directives: No Advance Directives Information Provided: No Do you have a plan to hurt others: No Plan Physical Exam ED Exam Exam: GENERAL: Well-Appearing, conversant, anxious, BMI 53.7. SKIN: Normal skin color for ethnicity, warm, dry, no rashes noted. HEENT:? Normocephalic, atraumatic, no stridor, posterior oropharynx nonerythematous, dentition intact, EOMI. NECK: Soft, supple, full ROM, midline structures nontender, no step-offs, no deformities, no lymphadenopathy. CHEST: Heart regular rate and rhythm, no murmurs, symmetric chest rise and fall. PULMONARY: Clear to auscultation bilaterally, no labored breathing, no wheezes/rhales/rhonchi. ABDOMINAL: Soft, nondistended, nontender, positive bowel sounds in all quadrants. : Deferred. MUSCULOSKELETAL: Normal tone, full range of motion, no deformities, no peripheral edema. NEURO: Alert and oriented x3, CN II through XII intact, equal strength and sensation bilateral upper and lower extremities, no focal neurologic deficits.? PSYCHIATRIC: Anxious affect, fluid speech, good eye contact and appropriate demeanor. Vital Signs: Vital Signs - 24 hr 03/03/25 18:13 03/03/25 21:44 Temperature 97.0 F 97.8 F Pulse Rate 83 82 Respiratory Rate 16 18 Blood Pressure 149/65 H 139/70 Pulse Oximetry 95 96 Oxygen Delivery Method Room Air Room Air BMI result Body Mass Index 53.7 Course Course Course Narrative: Rapid medical examination performed in triage by Stephanie Villafana PA-C. Patient is a 49 year old assigned female at presenting to the emergency department with facial numbness and tachycardia. Patient states she is having intermittent palpitations and facial numbness. Detailed physical exam and review of systems are deferred to the assistant teacher primary. EKG and labs ordered. Patient placed back in the waiting room pending room availability and results. Medications Administered Discontinued Medications Generic Name Dose Route Start Last Admin Trade Name Freq PRN Reason Stop Dose Admin Potassium Chloride 40 meq 03/03/25 21:52 03/03/25 22:00 Potassium Chloride Er 20 Meq Tab.Er.Prt PO 03/03/25 21:53 40 meq ONCE ONE Administration Medical Decision Making Medical Decision Making [facility] Narrative: Patient presenting with chief complaint of heart palpitations. Differential diagnosis includes heart palpitations, electrolyte abnormality, arrhythmia, ACS, thyroid dysfunction, substance use including stimulants such as caffeine, amphetamines, drug toxicity, among many others. Patient found to have a potassium of 2.9 which could certainly be contributing to her facial paresthesias and palpitations. Repleted with 40 mEq of potassium chloride. The rest of her workup is rather reassuring. Cardiac enzyme is low, the rest of her electrolytes are normal. Suspect low potassium in the setting of Lasix and albuterol use. I discussed this with her at length. Also discussed the possibility of stress-induced palpitations in the setting of her brother recently passing away. Her risk factors for ACS include obesity, hyperlipidemia, hypertension, tobacco use and her brother dying at a young age of the stroke. She has close follow up with her primary care doctor. In fact, she has an appointment with the telemetry rn this coming in the same office as the primary care. Discussed importance of following up with the primary care as well as strict return precautions to the emergency department. I provided her with a prescription for omeprazole due to symptoms of GERD (lying flat at night causes her to have severe reflux and she does not take any medications for this). We also discussed tobacco cessation. Patient understands and agrees with plan for discharge. Discharged home in stable condition. Differential Diagnosis Differential Diagnoses: The differential diagnosis associated with the presentation includes (as above) Admission/Observation Consideration of admission/observation: Escalation of care including admission/observation considered Lab Data MDM Lab Attestation statement: I reviewed the patient's lab results. 03/03/25 18:38 03/03/25 18:38 Labs: Lab Results 03/03/25 Range/Units 18:38 WBC 9.7 (4.8-10.8) X10*3/uL RBC 4.64 (4.20-5.50) X10*6/uL Hgb 13.4 (12.0-16.0) g/dl Hct 41.0 (37.0-47.0) % MCV 88.4 (80.0-98.0) fL MCH 28.9 (27.0-33.0) pg MCHC 32.7 (31.0-35.0) g/dl RDW 13.5 (11.0-16.0) % Plt Count 332 D (160-400) X10*3/uL MPV 11.4 (9.4-12.3) fL Immature Gran % (Auto) 0.3 (0.0-0.4) % Neut % (Auto) 58.4 (45-73) % Lymph % (Auto) 25.0 (20-40) % Wharton % (Auto) 14.9 H (2-11) % Eos % (Auto) 1.0 (0-4) % Baso % (Auto) 0.4 (0-2) % Lymph # (Auto) 2.4 (1.2-4.9) X10*3/uL Wharton # (Auto) 1.5 H (0.1-1.2) X10*3/uL Eos # (Auto) 0.1 (0.0-0.4) X10*3/uL Baso # (Auto) 0.0 (0.0-0.2) X10*3/uL Abs Immat Gran (auto) 0.03 (0.00-0.03) X10*3/uL Absolute Neuts (auto) 5.7 (2.0-8.3) x10*3/uL Absolute Nucleated RBC 0.000 (0.0-0.012) X10*3/uL Nucleated RBC % (auto) 0.0 (0.0-0.2) /100WBC Sodium 144 (135-145) mmol/L Potassium 2.9 L* (3.3-5.1) mmol/L Chloride 104 (96-108) mmol/L Carbon Dioxide 31 H (22-29) mmol/L Anion Gap 12 (12-20) BUN 12 (9-16) mg/dL Creatinine 1.06 (0.5-1.4) mg/dL Estim Creat Clear Calc 89.7 Estimated GFR 55 Random Glucose 94 (60-115) mg/dL Calcium 9.3 D (8.4-10.2) mg/dL Magnesium 1.9 (1.6-2.6) mg/dL Total Bilirubin 0.3 (0.0-1.0) mg/dL AST 21 (5-31) U/L ALT 36 H (0-31) U/L Alkaline Phosphatase 84 (39-117) U/L Troponin I High Sens < 2.7 (<3.5-17.0) ng/L Total Protein 7.6 (6.5-8.0) g/dL Albumin 4.2 (3.5-5.0) g/dL Independent Interpretation I performed an independent interpretation of an: EKG External Record Review External record reviewed: Inpatient record Chronic Conditions Patient?s care impacted by: Hypertension and Other (asthma) Social Determinants Patient?s care significantly limited by Social Determinants of Health including: Other Social Determinant of Health Discharge Plan Discharge Clinical Impression: Acute hypokalemia, Chest pain due to GERD, Facial paresthesia, Palpitations Instructions: Heart Palpitations (ED), GERD (Gastroesophageal Reflux Disease) (ED), Paresthesia (ED) Additional Instructions: Take acid reflux medications every day for the next month to see if it helps with your reflux symptoms. Return to the emergency room immediately with any new or worsening symptoms including: Worsening chest pain, difficulty breathing, fevers greater than 100?, passing out, any new symptom that concerns you. Call 911 with any medical emergency. Prescriptions: New potassium chloride [Klor-Con 10] 10 mEq tablet extended release 10 meq PO DAILY 14 Days Qty: 14 0RF omeprazole 20 mg capsule,delayed release(DR/EC) 20 mg PO DAILY Qty: 30 0RF No Action albuterol sulfate 90 mcg/actuation aerosol powdr breath activated 2 inh inhalation Q4-6H PRN (Reason: shortness of breath or wheezing) Qty: 1 0RF prednisone 20 mg tablet 40 mg PO DAILY 5 Days Qty: 10 0RF miconazole nitrate 2 % cream 1 appful vaginal BEDTIME 7 Days Qty: 45 0RF nitrofurantoin monohyd/m-cryst [Macrobid] 100 mg capsule 100 mg PO Q12H 5 Days Qty: 10 0RF Rx Instructions: must administer with a meal/food sulfamethoxazole-trimethoprim [Bactrim DS] 800-160 mg tablet 1 tab PO BID Qty: 10 0RF phenazopyridine [Pyridium] 200 mg tablet 200 mg PO TID PRN (Reason: pain) Qty: 6 0RF prednisone 20 mg tablet 40 mg PO DAILY Qty: 10 0RF albuterol sulfate 2.5 mg/0.5 mL solution for nebulization 5 mg inhalation Q6H PRN (Reason: shortness of breath or wheezing) Qty: 30 0RF prednisone 20 mg tablet 40 mg PO DAILY Qty: 10 0RF acetaminophen 500 mg tablet 1,000 mg PO QID PRN (Reason: pain) Qty: 30 0RF ibuprofen 600 mg tablet 600 mg PO Q6H PRN (Reason: pain) Qty: 20 0RF cyclobenzaprine 5 mg tablet 5 mg PO TID PRN (Reason: muscle spasm) Qty: 14 0RF nitrofurantoin monohyd/m-cryst [Macrobid] 100 mg capsule 100 mg PO Q12H 7 Days Qty: 14 0RF Rx Instructions: must administer with a meal/food lidocaine 5 % adhesive patch,medicated 1 patch topical DAILY Qty: 15 0RF Rx Instructions: leave on most painful area for up to 12 hrs cyclobenzaprine 10 mg tablet 10 mg PO TID PRN (Reason: muscle spasm) Qty: 10 0RF Print Language: Hungarian
--- NOTE | 2025-03-03 18:22 | ECG_ITS ---
Test Reason : PALPATIONS Blood Pressure : */* mmHG Vent. Rate : 95 BPM Atrial Rate : 95 BPM P-R Int : 156 ms QRS Dur : 86 ms QT Int : 316 ms P-R-T Axes : 23 -33 -3 degrees QTcB Int : 397 ms Normal sinus rhythm Left axis deviation Moderate voltage criteria for LVH, may be normal variant ( R in aVL , [place] product ) Nonspecific T wave abnormality Abnormal ECG When compared with ECG of 13-Feb-2025 17:43, Vent. rate has increased by 37 bpm Nonspecific T wave abnormality now evident in Lateral leads Referred By: Stephanie Villafana Electronically Signed By: ANNA MARTINEZ
[2025-03-03 18:46] LABS: MANUAL DIFF FLAG NO
[2025-03-03 19:01] LABS: Hematocrit 41.0 % (37.0-47.0); Hemoglobin 13.4 g/dl (12.0-16.0); Imm Gran Abs Auto 0.03 X10*3/uL (0.00-0.03); Imm Gran Pct Auto 0.3 % (0.0-0.4); Lymphocytes Absolute Auto 2.4 X10*3/uL (1.2-4.9); Mean Corpuscular HGB Conc 32.7 g/dl (31.0-35.0); Mean Corpuscular Hemoglobin 28.9 pg (27.0-33.0); Mean Corpuscular Volume 88.4 fL (80.0-98.0); NRBC Abs Auto 0.000 X10*3/uL (0.0-0.012); NRBC Pct Auto 0.0 /100WBC (0.0-0.2); Platelet Count 332 X10*3/uL (160-400); Red Blood Count 4.64 X10*6/uL (4.20-5.50); White Blood Count 9.7 X10*3/uL (4.8-10.8)
[2025-03-03 19:08] LABS: Troponin-I High Sensitivity < 2.7 ng/L (<3.5-17.0)
[2025-03-03 19:10] LABS: Alanine Aminotransferase 36 U/L (0-31); Albumin Level 4.2 g/dL (3.5-5.0); Alkaline Phosphatase 84 U/L (39-117); Anion Gap 12 (12-20); Aspartate Amino Transferase 21 U/L (5-31); Blood Urea Nitrogen 12 mg/dL (9-16); Calcium 9.3 mg/dL (8.4-10.2); Carbon Dioxide 31 mmol/L (22-29); Chloride 104 mmol/L (96-108); Creatinine Clr Calc Pharmacy 89.7; Estimated Glomerular Filt Rate 55; Magnesium 1.9 mg/dL (1.6-2.6); Potassium 2.9 mmol/L (3.3-5.1); Sodium 144 mmol/L (135-145); Total Protein 7.6 g/dL (6.5-8.0)
--- NOTE | 2025-03-03 19:10 | PC.NURSE ---
Accepted critical K of 2.9 from Mae in lab - pit provider Stephanie made aware.
--- NOTE | 2025-03-03 20:25 | PC.NURSE ---
PT to triage door asking in kiswahili when she will get a room, t/w responded in burundian and kiswahili that we do not know, but pt should stay in dept. Patient stated in burundian I don't speak burundian . Pt. then walked back into [facility].
[2025-03-03 21:44] VITALS: BP 139/70; PULSE 82; RESP 18; TEMP 36.6; O2SAT 96
--- NOTE | 2025-03-03 21:47 | PC.NURSE ---
pt returned back to emergency dept brought back to ed 7 place don air sampling and monitoring awaiting to be seen by ed provider
--- OUTSIDE RECORDS SUMMARY | 2025-03-03 21:50 | XMS_ITS | Clinical Summary ---
Author Organization [address] [place] [address] [address] [place] [address] Phone Care Team Providers Care Fruit Cutter Name Role Phone Sarah Tobias Primary Care Provider [phone] Allergies No known active allergies Medications melatonin [...] obtain baseline labs. Will obtain records from [facility]. Chest pressure 04/13/2023 Overview (12/13/2024): Last Assessment [...] Type Department Care Team Description 12/25/2024 Telephone [facility] [address] [facility] [address] [place] [phone] Yael Nathan chinchillacy 12/16/2024 7:50 AM EDT Office Visit [facility] [address] [place] [id number] Oscar Aguirre MD Chest pressure (Primary Dx); [...] mmol/L LAB CHEMISTRY METHOD 12/16/2024 12:[address] [facility] Potassium 4.0 3.5 - 5.5 mmol/L LAB CHEMISTRY METHOD 12/16/2024 12:[address] [facility] Chloride 104 96 - 110 mmol/L LAB CHEMISTRY METHOD 12/16/2024 12:[address] [facility] CO2 32 21 - 32 mmol/L LAB CHEMISTRY METHOD 12/16/2024 12:[address] [facility] Anion Gap 4 3 - 11 LAB CHEMISTRY METHOD 12/16/2024 12:[address] [facility] Glucose 98 70 - 100 mg/dL LAB CHEMISTRY METHOD 12/16/2024 12:[address] [facility] BUN 15 5 - 25 mg/dL LAB CHEMISTRY METHOD 12/16/2024 12:35 PM EDT [facility] Creatinine 0.78 0.50 - 1.10 mg/dL LAB CHEMISTRY METHOD 12/16/2024 12:35 PM EDT [facility] eGFR 93 >=60 mL/min/1. 73m2 LAB CHEMISTRY METHOD 12/16/2024 12:35 PM EDT [facility] Comment:Calculation based on the Chronic Kidney Disease Epidemiology Collaboration (CKD-EPI) equation refit without adjustment for race. BUN/Creatinine Ratio 19.2 LAB CHEMISTRY METHOD 12/16/2024 12:35 PM EDT [facility] Calcium 9.3 8.5 - 10.5 mg/dL LAB CHEMISTRY METHOD 12/16/2024 12:35 PM EDT [facility] Blood Venous blood specimen / Unknown Venipuncture / Unknown 12/16/2024 8:44 AM EDT 12/16/2024 9:46 AM EDT Oscar Aguirre MD LAB BLOOD ORDERABLES Final Resul t [facility] [address] [place] [address], * ECG 12 lead (12/16/2024 7:56 AM EDT) Ventricular Rate ECG 62 BPM GEMUSE Atrial Rate 62 BPM GEMUSE P-R Interval 154 ms GEMUSE QRS Duration 78 ms GEMUSE Q-T Interval 492 ms GEMUSE QTc 499 ms GEMUSE P Wave [place] 17 degrees GEMUSE R [place] -12 degrees GEMUSE T [place] -16 degrees GEMUSE ECG Interpretation Normal sinus [...] Months Insurance MEDICAID - [place] Care Teams Fruit Cutter Relationship Specialty Start Date End Date Sarah Tobias [address] [place] [address] PCP - General 12/16/24
--- OUTSIDE RECORDS SUMMARY | 2025-03-03 21:50 | XMS_ITS ---
Author Organization [facility] Address [address] [place] [address] Care Team Providers Care Bearing Inspector Name Role Phone Sarah Tobias NP Primary Care Provider [id number] Program Status:Enrolled (Active) Start date:05/31/2022 Enrollment date:05/31/2022 Case Team Name Relationship Phone Demond Rodriguez PharmD(Responsible S taff) [phone] Continued Care and Services Coordination
--- OUTSIDE RECORDS SUMMARY | 2025-03-03 21:50 | XMS_ITS | Clinical Summary ---
Author Organization [employer] Address [address] [place] [address] [address] [place] [address] Care Team Providers Care Deck Mate Name Role Phone Unavailable Primary Care Provider [...]
--- OUTSIDE RECORDS SUMMARY | 2025-03-03 21:50 | XMS_ITS | Clinical Summary ---
Author Organization [facility] Address [address] [place] [address] Care Team Providers Care Bus Inspector Name Role Phone Sarah Tobias NP Primary Care Provider [phone] Source Comments PLEASE NOTE, if this patient [...] a meal 90 Tablet 1 4 Active cetirizine (ZYRTEC) 10 mg tabletIndication s:Seasonal allergies Take 1 Tablet by mouth once daily 90 Tablet 1 4 Active lidocaine (LIDODERM) 5 % patchIndications :Mid back pain,Chronic lumbosacral pain Place 1 Patch onto the skin once daily (every 24 hours) 30 Patch 2 4 Active traZODone (DESYREL) 50 mg tablet TAKE 1/2 TABLET BY MOUTH NIGHTLY AT BEDTIME FOR 180 DAYS 4 Active buPROPion XL (WELLBUTRIN XL) 150 mg 24 hr tabletIndication s: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, unspecified whether recurrent (CMS & HHS-HCC) Take 1 Tablet by mouth every morning for 180 days 90 Tablet 1 5 Active melatonin 5 mg tabIndications:G eneralized anxiety disorder Take 1 Tablet by mouth nightly at bedtime for 180 days 90 Tablet 1 5 Active PARoxetine (PAXIL) 30 mg tabletIndication s: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 100 g 3 5 Active amLODIPine (NORVASC) 10 mg tablet TOME IAN TABLETA TODOS LOS CAO. 90 Tablet 1 5 Active hydrALAZINE (APRESOLINE) 25 mg tabletIndication s:Resistant hypertension Take 1 Tablet by mouth 3 (three) times daily. 270 Tablet 1 5 Active losartan-hydroch lorothiazide (HYZAAR) 100-25 mg per tablet Take 1 Tablet by mouth once daily. 90 Tablet 1 5 Active metoprolol succinate XL (TOPROL-XL) 50 mg 24 hr tablet Take 1 Tablet by mouth once daily. 90 Tablet 1 5 Active compress.stockin g,knee,reg,medIn dications:Lower leg edema Please dispense 3 pairs of compression stockings 15 mmhg. 3 Each 1 5 Active furosemide (LASIX) 20 mg tablet Take 20 mg by mouth daily. 5 12/17/19 26 Active cyclobenzaprine (FLEXERIL) 10 mg tabletIndication s:Periumbilical abdominal pain,Ruptured cyst of ovary,Uterine leiomyoma, unspecified location Take 1 Tablet by mouth 3 (three) times daily as needed for muscle spasms. 30 Tablet 5 Active Active Problems Problem Noted Date Diagnosed Date Class 3 severe obesity due t o excess calories without serious comorbidity with body mass index (BMI) of 45.0 to 49.9 in adult ([facility]) 07/13/2023 Current severe episode of ma tram depressive disorder with psychotic features ([facility]) 05/30/2023 Generalized anxiety disorder 05/30/2023 [...] 06/27/22: Tc Mcgrath MD saw pt at [facility], started flexeril and c/w OTC NSAIDS> Referral to PT, f/u in 3 months or PRN 06/14/22: She reports she was also RX back brace which she continues to use. She is followed by Medicare in [facility]), received injections 01/06/22: XRAY at [facility] show thoracic and lumbar osteophytes Thoracic- there are bringing anterior and lateral osteophytes throughout the mid and lower thoracic spine Lumbar; there are small degenerative osteophytes throughout the lumbar spine Morbid obesity 09/21/2021 Resolved Problems Problem Noted Date Diagnosed Date Resolved Date Hypertension 09/21/2021 12/09/2024 Encounters Date Type Department Care Team Description 12/27/2024 1:40 PM EDT Office Visit [address] [phone] Demond Smith, PharmD 12/23/2024 3:20 PM EDT Office Visit [address] [phone] Sarah Tobias NP 12/18/2024 Results Follow-Up [address] [phone] Rodger Virk RN 12/17/2024 Interim Notes [address] [phone] Augustin Santos 12/09/2024 2:00 PM EDT Office Visit [address] [phone] Sarah Tobias NP from Last 3 Months [...] 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 [employer] Not on file Not on file Not [...] Description 03/06/2025 3:00 PM EDT Office Visit [facility] [address] [place] [phone] Demond Smith, PharmD [address] [place] [address] 03/31/2025 1:00 PM EDT Office Visit [facility] [address] [place] [phone] Sarah Tobias, WILIAM [address] [place] [address] Health Maintenance Due Date Last Done Comments HPV Screening 1974 Imm-Hepatitis B (1 of 3 - 19+ 3-dose series) 1993 FIT/gFOBT 10/08/2019 Fecal DNA 10/08/2019 Flexible Sigmoidoscopy 10/08/2019 Annual Wellness (Adult): Indicated (All Coverage) 06/07/2024 06/07/2023, 01/31/2023 Imm-Zoster, Recombinant (1 of 2) 2024 Depression Monitoring 01/04/2025 10/04/2024 , 05/07/2024, 10/20/2023, Additional history exists [id number] ( season) 2025 07/14/2022, 01/18/2021, 12/21/2020 Imm-Influenza (#1) 2025 06/27/2024, 02/16/2023 Breast Cancer Screening (Mammogram) 06/29/2025 06/18/2024 Tobacco Screening 08/06/2025 08/06/2024, , 07/13/2023, Additional history exists Anxiety Screening 10/04/2025 10/04/2024 Pap Smear 11/25/2025 11/25/2022 Diabetes Screening 12/16/2025 12/16/2024, 0 12/14/2023, 06/07/2023, Additional history exists Lipid Screening 06/12/2027 06/12/2024, 01/03, 09/21/2021 Cervical Cancer Screening 11/26/2027 Pap + [...] ORDERS SCANNED DOCUMENT 12/12/2024 3:00 AM EDT REFERRAL FOR MAMMOGRAM Routine [...] is included. 01/13/2025 3:00 AM EDT us Sarah Tobias AUTOMOTIVE DETAILER SCAN OTHER ORDERS Final Resu lt * REFERRAL SCANNED DOCUMENT (12/16/2024 3:00 AM EDT) Only the most recent of2 resultswithin the time period is included. 12/16/2024 3:00 AM EDT us Sarah Tobias AUTOMOTIVE DETAILER SCAN REFERRAL Final Result * REFERRAL FOR MAMMOGRAM SCREENING (06/18/2024 3:00 AM EST) 06/18/2024 3:00 AM EST us Sarah Tobias NP IMG RFL MAMMO Final Result * (ABNORMAL) LIPID PANEL (06/12/2024 9:28 AM EST) CHOLESTEROL, TOTAL 246(H) <200 mg/dL [facility] HDL CHOLESTEROL 70 > OR = 50 mg/dL [facility] TRIGLYCERIDES 88 <150 mg/dL [facility] LDL-CHOLESTEROL 157(H) 99 mg/dL (calc) [email or web address] Comment: Reference range: <100 Desirable range <100 mg/dL for primary prevention; <70 mg/dL for patients with CHD or diabetic patients with > or = 2 CHD risk factors. LDL-C is now calculated using the Tracy calculation, which is a validated novel method providing better accuracy than the Friedewald equation in the estimation of LDL-C. Eliecer SS et al. BENJI. 2013;310(19): 8807-3694 (http://education.Higgle/faq/LPD828) CHOL/HDLC RATIO 3.5 <5.0 (calc) [email or web address] NON-HDL CHOLESTEROL 176(H) <130 mg/dL (calc) [email or web address] Comment: For patients with diabetes plus 1 major ASCVD risk factor, treating to a non-HDL-C goal of <100 mg/dL (LDL-C of <70 mg/dL) is considered a therapeutic option. Blood Blood / Unknown 06/12/2024 9 :28 AM EST 06/12/2024 9:29 AM EST Narrative [facility] - 06/13/2024 3:30 AM EST FASTING:YES us Sarah Tobias NP LAB - BLOOD DRAW Final Resul t [facility] [address] [address], [email or web address] [address] [address] * REFERRAL FOR COLONOSCOPY (02/21/2024 3:00 AM EDT) 02/21/2024 3:00 AM EDT Sarah GRAHAM Edited Result - Final * HIV 1/2 AG & AB W/RFLX (4TH GEN) (12/14/2023 4:48 PM EDT) Pathologist [facility] HIV AG/AB, 4TH GEN NON-REAC TIVE NON-REAC TIVE [facility] Comment: HIV-1 antigen and HIV-1/HIV-2 antibodies were [...] purpose. For additional information please refer to http://education.Apartment Adda/faq/LPC238 (This link is being provided for informational/ educational purposes only.) The performance of this assay has not been clinically validated in patients less than 2 years old. Blood Blood / Unknown 12/14/2023 4 :48 PM EDT 12/14/2023 4:49 PM EDT Naga Conn PA-C LAB - BLOOD DRAW Final Result [facility] [address] [place] [address], [facility] [address] [place] [phone] * COMPREHENSIVE METABOLIC PANEL (12/14/2023 4:48 PM EDT) Pathologist [facility] GLUCOSE 84 65 - 99 mg/dL [facility] Comment: Fasting reference interval UREA NITROGEN (BUN) 13 7 - 25 mg/dL [facility] CREATININE (blood) 0.82 0.50 - 0.99 mg/dL [facility] EGFR 88 > OR = 60 mL/min/1. 73m2 [facility] BUN/CREATININE RATIO SEE NOTE: [facility] Comment: Not Reported: BUN and Creatinine are within reference range. SODIUM 138 135 - 146 mmol/L [facility] POTASSIUM 3.6 3.5 - 5.3 mmol/L [facility] CHLORIDE 102 98 - 110 mmol/L [facility] CARBON DIOXIDE 30 20 - 32 mmol/L [facility] CALCIUM 9.4 8.6 - 10.2 mg/dL [facility] PROTEIN, TOTAL 6.9 6.1 - 8.1 g/dL [facility] ALBUMIN 4.2 3.6 - 5.1 g/dL [facility] GLOBULIN 2.7 1.9 - 3.7 g/dL (calc) [facility] ALBUMIN/GLOBULI N RATIO 1.6 1.0 - 2.5 (calc) [facility] BILIRUBIN, TOTAL 0.4 0.2 - 1.2 mg/dL [email or web address] ALKALINE PHOSPHATASE 59 31 - 125 U/L [facility] AST 17 10 - 35 U/L [facility] ALT 23 6 - 29 U/L [facility] Blood Blood / Unknown 12/14/2023 4 :48 PM EDT 12/14/2023 4:49 PM EDT Naga Conn PA-C LAB - BLOOD DRAW Edited Resul t - Final [facility] [address] [address], [email or web address] [address] [address] * HEPATITIS C AB W/RFLX HCV RNA, QT, RT PCR (01/17/2023 12:09 PM EDT) HEPATITIS C ANTIBODY NON-REACT FERDINAND NON-REACT FERDINAND [email or web address] Comment: HCV antibody was non-reactive. There is no laboratory evidence of HCV infection. In most cases, no further action is required. However, if recent HCV exposure is suspected, a test for HCV RNA (test code 85775) is suggested. For additional information please refer to http://education.Apartment Adda/faq/CDW41o5 (This link is being provided for informational/ educational purposes only.) Blood Blood / Unknown 01/17/2023 1 2:09 PM EDT 01/17/2023 12:09 PM EDT Narrative [facility] - 01/18/2023 2:32 AM EDT FASTING:YES Sarah Tobias NP LAB - BLOOD DRAW Edited Resu lt - Final [facility] [address] [place] [address], [facility] [address] [place] [phone] * THIN PREP IMAGE PAP + HPV RNA E6/E7 W/RFLX HPV 16, 18/45 (11/25/2022 1:18 PM EDT) CLINICAL INFORMATION See Note [facility] Comment:ROUTINE EXAM LMP See Note [facility] Comment:[id number] PREV. PAP See Note [facility] Comment:NONE GIVEN PREV. BX See Note [facility] Comment:NONE GIVEN SOURCE See Note [facility] Comment:Cervix STATEMENT OF ADEQUACY See Note [facility] Comment: Satisfactory for evaluation. Endocervical/transformation zone component present. Partially obscuring inflammation Partially obscuring blood INTERPRETATION/RESU LT See Note [facility] Comment:Negative for intraep ithelial lesion or malignancy. INFECTION See Note [facility] Comment: Fungal organisms morphologically consistent with Ann spp. COMMENT See Note [facility] Comment: This case could not be evaluated with computer assisted technology. The slide was manually screened according to routine procedures. LABOR RELATIONS REPRESENTATIVE See Note [facility] Telecardia Comment: KN, CT(ASCP) CT screening location: [address] [address] COMMENT [facility] HPV MRNA E6/E7 Not Detected Not Detected [facility] Comment: Methodology: Operations Processor-Mediated Amplification This assay detects E6/E7 viral messenger RNA (mRNA) from 14 high-risk HPV types (16,18,31,33,35,39,45,51,52,56,58,59,66,68). Cervical sources are required for HPV testing. If a vaginal source from a patient who has had a total hysterectomy with removal of cervix was submitted, please contact the testing laboratory for alternative testing options. For additional information, please refer to http://education.Fivetran.Enabled Employment/faq/GDG134n7 (This link if provided for information/ educational [...] historic and current clinical information. Sarah Tobias AUTOMOTIVE DETAILER LAB - PATHOLOGY AND CYTOLOGY AMBULATORY Final Result [facility] [address] [address], [facility] [address] [address] from Last 3 Months or Most Recently Relevant to Health Maintenance Insurance [facility] [address] [employer] - [employer] COMPENSATION Care Teams Bus Inspector Relationship Specialty Start Date End Date Sarah Tobias NP [address] [place] [address] PCP - General Internal Medicine 04/11/22
[2025-03-03] MEDS: Potassium Chloride ER 20 MEQ TAB.ER.PRT 40 MEQ PO (22:00)
--- NOTE | 2025-03-03 22:03 | PC.NURSE ---
pt medicated according to mar tolerated po meds well pt at bedside
[2025-03-03 23:07] VITALS: BP 152/81; PULSE 73; RESP 15; TEMP 36.8; O2SAT 94
[2025-03-03 23:10] VITALS: BP 152/81; PULSE 73; RESP 15; TEMP 36.8; O2SAT 94
== END 2025-03-03 23:17 | disposition home or self-care (01) ==
PROVIDERS: Physician Assistant Medical; Emergency Provider Emergency Medicine; PCP Dentist General Practice
DX: E87.6 Hypokalemia (principal); R07.89 Other chest pain; K21.9 Gastro-esophageal reflux disease without esophagitis; R20.0 Anesthesia of skin; R00.2 Palpitations; Z79.899 Other long term (current) drug therapy
CPT/HCPCS: 36415; 80053; 83735; 84484; 85025; 93005; 99283; 99284

== ENCOUNTER → 2025-03-03 18:22 | Outpatient (BNV) | payer MEDICAID, SELFPAY | PROVIDERS: Emergency Provider Emergency Medicine; PCP Dentist General Practice; Visit Provider Internal Medicine | DX: R94.31 Abnormal electrocardiogram [ECG] [EKG] (principal); R00.2 Palpitations | CPT/HCPCS: 93010 ==